=== PATIENT | female | born 1960 | race Two or more races ===

== ENCOUNTER 2024-09-18 14:23 | Outpatient (AMB) | payer MEDICAID, SELFPAY ==
[2024-09-18 15:18] VITALS: BP 165/85; PULSE 86; RESP 18; TEMP 35.9; O2SAT 96; BMI 33.6
--- NOTE | 2024-09-18 15:18 | ORTHONT_ITS ---
Vital signs 09/18/24 15:18 Height 1.4 m Height Method Stated Weight 65.998 kg Weight Measurement Method Standing Scale BMI 33.6 BP 165/85 H Blood Pressure Source Automatic Cuff Blood Pressure Location Right Upper Arm Position Sitting Respiration 18 Pulse 86 Pulse Source Monitor Temp 96.7 F L Temp Source Temporal Artery Scan Pulse Oximetry (%) 96 Oxygen Delivery Method Room Air Med/Allergies Allergies & Medications Allergies No Known Allergies Allergy (Verified 09/18/24 15:18) Medication Reconciliation glipizide 10 mg tablet 10 mg PO QDAY 08/02/24 [History Confirmed 09/18/24] insulin glargine 100 unit/mL (3 mL) subcutaneous pen (Lantus Solostar U-100 Insulin) 10 unit subcut QPM 08/02/24 [History Confirmed 09/18/24] meloxicam 7.5 mg tablet 7.5 mg PO QDAY #45 tabs 08/02/24 [Rx Confirmed 09/18/24] metformin 1,000 mg tablet,extended release 24hr (osmotic) 1,000 mg PO QDAY 08/02/24 [History Confirmed 09/18/24] pioglitazone 30 mg tablet 30 mg PO QDAY 08/02/24 [History Confirmed 09/18/24] Subjective Visit Visit for: follow up visit and knee Immunization / Flu Flu Vaccine in the Last 12 Months: Yes Flu Vaccine Exclusion Criteria: Already Received History of Present Illness Chief complaint: BILATERAL KNEE PAIN Date of injury / onset of symptoms: 2 YEARS AGO Patient is pleasant 64-year-old female with bilateral knee pain. The pains been bothering her for over 2 years. She has tried injections with minimal relief. She tried naproxen and Tylenol with a little relief. The pain started affect her quality life. She has difficulty sleeping. 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 Exam Exam Patient is in no acute distress and is cooperative with the examination today. Breathing is nonlabored. In no respiratory distress. Bilateral extremities were evaluated and demonstrates sensation intact to light touch. Palpable pedal pulses are present. No significant edema is present. Bilateral hips were examined. The patient has no pain with log roll of the hips. Internal rotation to 30 degrees and external rotation to 30 degrees is painless. Negative FADIR. The left knee was examined. The left knee is in [varus] alignment. Range of motion from [0-115] degrees. Knee is stable to varus and valgus as well as AP translation with <5mm. Patient has a [negative] McMurrays. There is [no] pain with patellofemoral compression and [no] crepitus noted. The knee is [tender] to palpation [medially]. The right knee was also examined. The right knee is in [varus] alignment. Range of motion from [0-120] degrees. Knee is stable to varus and valgus as well as AP translation with <5mm. Patient has a [negative] McMurrays. There is [no] pain with patellofemoral compression and [no] crepitus noted. The knee is [tender] to palpation [medially]. X-rays were reviewed from [facility]. This demonstrates moderate to severe joint space narrowing. She is weightbearing x-rays from [place] that we saw today. This demonstrates varus deformity and bilateral joint space narrowing with complete abrasion medial joint space. There is significant varus deformity Assessment and Plan Problem List (1) Degenerative arthritis of knee, bilateral: Status: Acute Plan: Patient is a pleasant 64-year-old female with bilateral knee pain and bilateral knee arthritis. We discussed nonoperative operative options. She is failed anti-inflammatories, injections, and bracing. We thus discussed total knee replacement is a reasonable option. The pain is worse on the right and we will start on this today. We do need to figure out what her hemoglobin A1c is. She reports it is well-controlled but we will check Plan The nature and purpose of the total knee replacement, alternative method(s) of treatment, the material risks involved, and the possibility of complications were fully explained to the patient. The patient does NOT have any of the following contraindications to TKA: - Active infection of the knee joint, OR - Active systemic bacteremia, OR - Active skin infection or open wound at surgical site, OR - Neuropathic arthritis, OR - Severe, rapidly progressive neurological disease, OR - Severe medical condition that makes risks of surgery outweigh the potential benefit The patient was told the most common risks and complications associated with a total knee replacement include, but are not limited to: blood clots in the leg, fatal pulmonary embolism, dislocation of the prosthesis, intraoperative and postoperative fractures of the femur or tibia, infection, failure of the p rosthesis or grafting materials, complications from anesthesia, reactions to blood transfusions, postoperative leg length inequality, instability of the knee replacement, nerve damage or injury, vascular injury, delayed wound healing, infection, other injury or even . In addition, there are risks associated with anesthesia given during this operation. Also, the patient was told that after undergoing a total knee replacement there may still be persistent pain or disability. The patient was informed that the success of this operation in part depends upon the mechanical devices which are going to be implanted and that these devices can fail or malfunction, and may need to be repaired or replaced and there are no guarantees as to the longevity of this device or its parts and that it or its parts could fail prematurely. The patient was also notified that during the course of surgery, there may be a need to use bone graft from donors, and that any bone graft used will be carefully screened for communicable diseases, including AIDS, hepatitis, Callum-Creutzfeldt, or other diseases, but despite the screening procedures, there is a small chance that they could contract one of these diseases. Finally, the patient was asked to follow completely and fully with all advice and recommended treatments, and that recovery and ultimate outcome are affected by their compliance with recommended treatment. We discussed the risks, benefits and treatment alternatives, and the patient is interested in proceeding with surgery. We will try to set this up as expeditiously as possible. Office Procedures GNS Level of Care Nursing/Assessment Patient Status: Established Patient Nursing Assessment/Reassesment: Medication Reconciliation, Update PMH in EMR and Vital Signs Coordination of Care: Complex Care and Chronic Disease 1-5, Education Complex Pt/Fam, Consent,records obtained, informed consent, 2-3 Insurance Autorizations needed, Lab and Imaging orders, Results/Orders obtained and Staff clarify orders Special Needs: Language special needs Established Patient Charge Established Patient Point Assignment: 130 Established Patient Point Charge: EP Level 4 (120-155) Past Medical History Past Medical History Have you ever been diagnosed with any of the following: Respiratory Problems Smoking: No Smoking Exposure: No Musculoskeletal Problems Arthritis: Yes Endocrine Problems Diabetes Mellitus Type 2: Yes
== END 2024-09-18 15:44 | disposition home or self-care (01) ==
LOC: HODSRG 14:23
PROVIDERS: PCP Family Medicine; Referring Provider Family Medicine; Supervising Provider Orthopaedic Surgery Adult Reconstructive Orthopaedic Surgery; Visit Provider Orthopaedic Surgery Adult Reconstructive Orthopaedic Surgery
DX: M17.0 Bilateral primary osteoarthritis of knee (principal); M25.562 Pain in left knee; M25.561 Pain in right knee; E11.9 Type 2 diabetes mellitus without complications
CPT/HCPCS: 99214; G0463

== ENCOUNTER 2025-08-22 08:25 | Outpatient (AMB) | payer MEDICARE, SELFPAY ==
[2025-08-22 08:43] VITALS: BP 131/64; PULSE 80; RESP 18; TEMP 36.2; O2SAT 98; BMI 22.9
--- NOTE | 2025-08-22 08:43 | ORTHONT_ITS ---
Vital signs 08/22/25 08:43 Height 1.42 m Height Method Stated Weight 46.38 kg Weight Measurement Method Standing Scale BMI 22.9 BP 131/64 H Blood Pressure Source Automatic Cuff Blood Pressure Location Left Upper Arm Position Sitting Respiration 18 Pulse 80 Pulse Source Monitor Temp 97.2 F Temp Source Temporal Artery Scan Pulse Oximetry (%) 98 Oxygen Delivery Method Room Air Med/Allergies Allergies & Medications Allergies No Known Allergies Allergy (Verified 08/22/25 08:44) Medication Reconciliation glipizide 10 mg tablet 10 mg PO QDAY 08/02/24 [History Confirmed 08/22/25] insulin glargine 100 unit/mL (3 mL) subcutaneous pen (Lantus Solostar U-100 Insulin) 10 unit subcut QPM 08/02/24 [History Confirmed 08/22/25] meloxicam 7.5 mg tablet 7.5 mg PO QDAY #45 tabs 08/02/24 [Rx Confirmed 08/22/25] metformin 1,000 mg tablet,extended release 24hr (osmotic) 1,000 mg PO QDAY 08/02/24 [History Confirmed 08/22/25] pioglitazone 30 mg tablet 30 mg PO QDAY 08/02/24 [History Confirmed 08/22/25] Exam Exam Patient is in no acute distress and is cooperative with the examination today. Breathing is nonlabored. In no respiratory distress. Bilateral extremities were evaluated and demonstrates sensation intact to light touch. Palpable pedal pulses are present. No significant edema is present. Bilateral hips were examined. The patient has no pain with log roll of the hips. Internal rotation to 30 degrees and external rotation to 30 degrees is painless. Negative FADIR. Left and right knees demonstrate extreme valgus deformity of over 30 degrees. He is tender to palpation laterally on both knees. Knees are stable tovarus valgus stress only translation.. X-rays were reviewed from [facility]. This demonstrates moderate to severe joint space narrowing. She is weightbearing x-rays from [place] that we saw today. This demonstrates varus deformity and bilateral joint space narrowing with complete abrasion m edial joint space. There is significant valgus deformity of both knees Assessment and Plan Problem List (1) Degenerative arthritis of knee, bilateral: Status: Acute Plan: Patient is a pleasant 65-year-old female with bilateral knee pain and bilateral knee arthritis. We discussed nonoperative operative options. She is failed anti-inflammatories, injections, and bracing. We thus discussed total knee replacement is a reasonable option. The pain is worse on the right and we will start on this today. Her hemoglobin A1c is now controlled at 7.8 Plan The nature and purpose of the total knee replacement, alternative method(s) of treatment, the material risks involved, and the possibility of complications were fully explained to the patient. The patient does NOT have any of the following contraindications to TKA: - Active infection of the knee joint, OR - Active systemic bacteremia, OR - Active skin infection or open wound at surgical site, OR - Neuropathic arthritis, OR - Severe, rapidly progressive neurological disease, OR - Severe medical condition that makes risks of surgery outweigh the potential benefit The patient was told the most common risks and complications associated with a total knee replacement include, but are not limited to: blood clots in the leg, fatal pulmonary embolism, dislocation of the prosthesis, intraoperative and postoperative fractures of the femur or tibia, infection, failure of the prosthesis or grafting materials, complications from anesthesia, reactions to blood transfusions, postoperative leg length inequality, instability of the knee replacement, nerve damage or injury, vascular injury, delayed wound healing, infection, other injury or even . In addition, there are risks associated with anesthesia given during this operation. Also, the patient was told that after undergoing a total knee replacement there may still be persistent pain or disability. The patient was informed that the success of this operation in part depends upon the mechanical devices which are going to be implanted and that these devices can fail or malfunction, and may need to be repaired or replaced and there are no guarantees as to the longevity of this device or its parts and that it or its parts could fail prematurely. The patient was also notified that during the course of surgery, there may be a need to use bone graft from donors, and that any bone graft used will be carefully screened for communicable diseases, including AIDS, hepatitis, Callum-Creutzfeldt, or other diseases, but despite the screening procedures, there is a small chance that they could contract one of these diseases. Finally, the patient was asked to follow completely and fully with all advice and recommended treatments, and that recovery and ultimate outcome are affected by their compliance with recommended treatment. We discussed the risks, benefits and treatment alternatives, and the patient is interested in proceeding with surgery. We will try to set this up as expeditiously as possible. Advanced Care Planning Discussion Advance care planning discussed with:: patient Office Procedures GNS Level of Care Nursing/Assessment Patient Status: Established Patient Nursing Assessment/Reassesment: Medication Reconciliation, Update PMH in EMR and Vital Signs Coordination of Care: Complex Care and Chronic Disease 1-5, Education Complex Pt/Fam, Consent,records obtained, informed consent, Results/Orders obtained and Staff clarify orders Special Needs: Language special needs Established Patient Charge Established Patient Point Assignment: 95 Established Patient Point Charge: EP Level 3 (80-115) MA Intake Visit Data Collection New Patient or Established: Established Patient (seen at [facility] within 3 years) Reason for Visit:: REQ R TKA SX Seen by Clinical Staff ONLY (RN/MA): No Airport Location Manager Required: Yes PCP or OBGYN visit in last 3 months: Yes Hx Now: No Do You Feel Safe at Home: Yes Authorities Contacted: N/A Questionairres Past Medical History Past Medical History Have you ever been diagnosed with any of the following: Respiratory Problems Smoking: No Smoking Exposure: No Musculoskeletal Problems Arthritis: Yes Endocrine Problems Diabetes Mellitus Type 2: Yes Subjective Visit Visit for: follow up visit and knee (RIGHT) Immunization / Flu Flu Vaccine in the Last 12 Months: No Flu Vaccine Exclusion Criteria: No Exclusion Criteria History of Present Illness Chief complaint: REQ KNEE SX HISTORY OF PRESENT ILLNESS IYoung, have obtained verbal consent from the patient, to be recorded during this encounter which may include, but not limited to, medical history, examination, treatment plans, and relevant health information.? Patient was i nformed that recording will be read and reviewed by myself before inclusion in the medical chart. The patient is a 65-year-old female who presents with bilateral knee pain. She reports that the pain has been bothering her for over 2 years and has significantly worsened, with the right knee being more affected than the left. She has tried injections with minimal relief as well as naproxen and Tylenol. The pain is affecting her quality of life and happiness, and she has difficulty sleeping. X-rays were taken on 04/04/2025, and she has brought the CD of the images. Pain Pain level (0-10): 8 Pain duration: ALL DAY Pain location: anterior Pain quality: sharp, dull and aching Pain timing: night, increases with activity and stairs Associated signs & symptoms: numbness Ambulatory data Ambulatory device: walker Treatments Improvement with previous injections: No Improvement with PT: No Improvement with NSAIDS: no Review of Systems Review of Systems: All systems negative unless otherwise noted in HPI.
--- NOTE | 2025-08-22 09:07 | XR_ITS ---
EXAMINATION: Bilateral knees 2 views Right lateral knee left lateral knee 2 views Bilateral axial knee single view TECHNIQUE: Bilateral AP knees standing single view Bilateral Pain-Ease standing single view flexion Standing right lateral knee left lateral knee 2 views Bilateral axillary single view total 5 views Date and time: August 22, 2025, 0916 hours INDICATIONS: Bilateral knee pain 3 years. FINDINGS: Severe narrowing lateral joint spaces bilaterally, [id number] on the left side Significant osteoarthritis bilateral patellofemoral joints Small bilateral knee effusions. Soft tissue vascular calcification No fractures IMPRESSION: Severe narrowing lateral joint spaces bilaterally Significant osteoarthritis bilateral patellofemoral joints
== END 2025-08-22 09:35 | disposition home or self-care (01) ==
PROVIDERS: PCP Family Medicine; Referring Provider Family Medicine; Supervising Provider Orthopaedic Surgery Adult Reconstructive Orthopaedic Surgery; Visit Provider Orthopaedic Surgery Adult Reconstructive Orthopaedic Surgery
DX: M25.562 Pain in left knee (principal); M25.561 Pain in right knee; M17.0 Bilateral primary osteoarthritis of knee; E11.9 Type 2 diabetes mellitus without complications; Z79.4 Long term (current) use of insulin; Z79.84 Long term (current) use of oral hypoglycemic drugs
CPT/HCPCS: 73564; 99213; G0463

== ENCOUNTER → 2025-09-10 | Outpatient (CLI) | payer MEDICARE, SELFPAY ==
--- NOTE | 2025-09-10 09:54 | XR_ITS ---
Examination: CT right lower extremity, without contrast. 2-D sagittal reconstructions. 2-D coronal reconstructions. 3-D reconstructions. Date and time of exam: September 10, 2025, 1012 hours INDICATIONS: Diagnosis primary right knee unilateral osteoarthritis, pain several years CTDI: vol (mGy): 8.4 DLP: (mGycm): 606 Technique: Multiple 1.25 mm axial sections of the right lower extremity without intravenous contrast have been obtained. 2-D sagittal and coronal reconstructions have been obtained. 3-D reconstructions have been obtained. Low dose protocols were performed. One or more of the following dose reduction techniques were used; automated exposure control, adjustment of the mA and/or KV according to patient size, use of iterative reconstruction technique. Findings: Moderate osteopenia Moderate narrowing hip joint No hip fracture or dislocation No avascular necrosis Moderate to advanced tricompartment osteoarthritis right knee Old depression of the lateral tibial plateau No patellar dislocation No acute fracture IMPRESSION: Moderate to advanced tricompartment osteoarthritis right knee
== END | disposition home or self-care (01) ==
PROVIDERS: PCP Family Medicine; Referring Provider Orthopaedic Surgery Adult Reconstructive Orthopaedic Surgery; Visit Provider Orthopaedic Surgery Adult Reconstructive Orthopaedic Surgery
DX: M17.11 Unilateral primary osteoarthritis, right knee (principal)
CPT/HCPCS: 73700

== ENCOUNTER 2025-09-11 07:27 | Day surgery (SDC) | payer MEDICARE, SELFPAY ==
[2025-09-10 07:31] VITALS: BMI 22.4
[2025-09-10 08:55] LABS: Basophils # (Auto) 0.0 Thou/mm3 (0.0-0.2); Basophils % (Auto) 0 % (0-2.5); Eosinophils # (Auto) 0.0 Thou/mm3 (0.0-0.5); Eosinophils % (Auto) 0 % (0-10); Hematocrit 35.6 % (36.0-46.0); Hemoglobin 11.8 g/dL (12.0-16.0); Immature Granulocytes Auto 0.04 Thou/mm3 (0.00-0.00); Lymphocytes # (Auto) 1.2 Thou/mm3 (1.0-4.8); Lymphocytes % (Auto) 9 % (10-50); Mean Corpuscular HGB Conc 33.1 g/dl (31.0-37.0); Mean Corpuscular Hemoglobin 30.1 pg (25.0-35.0); Mean Corpuscular Volume 91 fL (80-100); Monocytes # (Auto) 0.8 Thou/mm3 (0.0-0.8); Monocytes % (Auto) 6 % (0-12); Neutrophils # (Auto) 10.8 Thou/mm3 (1.8-7.7); Neutrophils % (Auto) 84 % (37-80); Nucleated Red Blood Cell # 0.00 Thou/mm3 (0.00-0.00); Nucleated Red Blood Cell % 0 /100 WBC (0); Platelet Count 331 Thou/mm3 (140-440); RDW Standard Deviation 43.8 fL (36.4-46.3); Red Blood Count 3.92 Miln/mm3 (4.00-5.20); White Blood Count 12.8 Thou/mm3 (3.6-11.0)
[2025-09-10 09:04] LABS: INR 1.0 (0.9-1.3); Partial Thromboplastin Time 23.0 Seconds (22.0-36.0); Prothrombin Time 10.5 Seconds (9.0-12.2)
[2025-09-10 09:16] LABS: Alanine Aminotransferase 9 U/L (10-49); Albumin, Serum 4.7 gm/dL (3.4-4.8); Albumin/Globulin Ratio 2.1 (1.2-2.2); Alkaline Phosphatase 108 U/L (46-116); Anion Gap 12 (7-16); Aspartate Amino Transferase 21 U/L (0-34); BUN/Creatinine Ratio 23 Ratio (12-20); Bilirubin,Total 0.3 mg/dL (0.3-1.2); Blood Urea Nitrogen 21 mg/dL (9-23); Calcium 9.8 mg/dL (8.3-10.6); Calcium (Corrected) 9.8 mg/dL (8.5-10.1); Carbon Dioxide 24.2 mMol/L (20.0-31.0); Chloride 106 mMol/L (98-107); Creatinine (Component) 0.9 mg/dL (0.6-1.3); Estimated Creatinine Clearance 41.3 mL/min (>60); Globulin 2.2 gm/dL (2.3-3.5); Glucose 268 mg/dL (74-106); Osmolality,Calculated 295 (275-295); Potassium 4.0 mMol/L (3.4-5.1); Sodium 142 mMol/L (136-145); Total Protein 6.9 gm/dL (5.7-8.2); eGFR > 60 See Note
--- NOTE | 2025-09-10 14:41 | SUR.PREOP ---
WBC 12.8, Dr Currie notified and ok to proceed. Cardiac records reviewed with Dr Christine.
[2025-09-11 08:00] VITALS: BP 106/89; PULSE 89; RESP 20; TEMP 37.1; O2SAT 97; BMI 22.4
--- NOTE | 2025-09-11 08:38 | CHAP ---
Prayed with patient before her procedure.
[2025-09-11 08:53] LABS: Glucose Estimated Average 189 mg/dL (80-131); Hemoglobin A1C 8.2 % Hgb (4.8-6.0)
[2025-09-11] MEDS: INSULIN HUM REGULAR 1 UNIT/0.01 ML (PER UNIT) 6 UNIT SC (09:08)
[2025-09-11 09:13] LABS: Glucose 534 mg/dL (74-106)
[2025-09-11 09:26] VITALS: BP 106/89; PULSE 89; RESP 15; TEMP 37.1; O2SAT 97
--- NOTE | 2025-09-11 09:41 | SUR.PREOP ---
0801-DR BARRERA MADE AWARE OF PATIENTS BLOOD SUGAR OF 472 1st AND 501 2nd, ORDERS FOR SLIDING SCALE. ORDERS PUT IN FOR GLUCOSE AND HEMOGLOBIN A1C AND LAB CALLED FOR BLOOD DRAW.
--- NOTE | 2025-09-11 09:46 | SUR.PREOP ---
0900-LAB CALLED WITH GLUCOSE RESULT OF 534, DR BARRERA MADE AWARE.
--- NOTE | 2025-09-11 09:48 | SUR.PREOP ---
0915-ORDER RECEIVED FROM DR BARRERA TO CANCEL TYLENOL 650MG, LYRICA 75MG, AND MELOXICAM 7.5MG PO.
--- NOTE | 2025-09-11 09:50 | SUR.PREOP ---
0920-FSBS [address] BARRERA MADE AWARE NO NEW ORDERS RECEIVED.
--- NOTE | 2025-09-11 09:51 | SUR.PREOP ---
09-[facility]APID RESPONSE TEAM CALLED AT 09, AND IN ROOM 203A AT 0930, THEY ASSESSED PATIENT. PATIENT AT NO TIME WAS IN DISTRESS OR C/O OF ANY DISCOMFORT. PATIENT AGREED TO BE SEEN IN ER AND TAKEN DOWN TO EMERGENCY ROOM VIA WHEEL CHAIR
--- NOTE | 2025-09-11 17:03 | PC.CM ---
Addendum entered by Maria Esther Corado RN 09/11/25 17:56: 1730 Jessica called back from [facility] and she states they took the information to administration and they are going to have to decline due to capacity and their team does not have room to bring in this patient. Patient declined. I spoke to Dr. Robles, Dr. Brown, and Dr. Araujo and they are going to reach out to Dr. Apple to see if he can offier any help or assistance. 1715 I received a call from Dr. Araujo and he wanted an update I let him know [facility] states their team is very busy but they are working on getting patient over. Dr. Hussein was going to call Dr. Lyles and see if he could help in getting patient transferred. 1710 I spoke to Jessica the transfer nurse and she states Dr. Lyles did call and speak Dr. Anglin. Jessica states their critical team is very busy so they are talking to administration to assist is getting patient accepted. Jessica knows that patient is life or . Original Note: 1700 I started transfer packet and I made a CD. 1645 I receive a call from [facility] ED charge nurse. She states Dr. Flakito Martinez will be the one to speak DrLevy to Dr. I then received a call from from Dr. Araujo stating he spoke to Dr. Lyles and he was going to reach out to Dr. Anglin at [facility]. I faxed over information to [facility] and I spoke to Jessica and faxed over information. 1627 I received a call from Dr. Araujo stating patient needs a stat trasnfer for STEMI patient needs cardio surgery. Patient is a stat transfer per Dr. Araujo
== END 2025-09-11 10:03 | disposition home or self-care (01) ==
LOC: S2EX 07:27
PROVIDERS: Anesthesiology; PCP Family Medicine; Referring Provider Orthopaedic Surgery Adult Reconstructive Orthopaedic Surgery; Visit Provider Orthopaedic Surgery Adult Reconstructive Orthopaedic Surgery
DX: M17.0 Bilateral primary osteoarthritis of knee (principal); Z53.8 Procedure and treatment not carried out for other reasons
CPT/HCPCS: 36415; 80053; 82947; 83036; 85025; 85610; 85730; A4649; J1815

== ENCOUNTER 2025-09-11 09:49 | Inpatient (IN) | payer MEDICARE, MEDICAID, SELFPAY ==
[2025-09-11] VITALS (27 sets, daily range): BP systolic 85–119; BP diastolic 48–93; PULSE 56–115; RESP 15–38; TEMP 36.6–36.9; O2SAT 91–100; BMI 19.9; BMI 19.8
[2025-09-11] MEDS: RINGERS LACTATED 1000 ML 1,000 ML 999 ML IV ×3 (10:08→15:17)
--- NOTE | 2025-09-11 10:08 | EDNOTE_ITS ---
<Statement entered by Patti Fisher MD - 09/11/25 17:46> I, Patti Fisher MD, have reviewed the history, exam, and assessment of the patient. I have evaluated the patient independently and agree with the plan of care documented by Dr. Costa. All diagnostic studies were reviewed and discussed. I confirm the diagnosis as documented by the Resident. I was present during the Medical Decision Making for this patient. The patient's plan of care was created between myself and the Resident and consistent with our discussion of the patient's case. ED General RME/HPI General Chief complaint: General Adult/Misc Complain Stated complaint: BLOOD SUGAR Time Seen by Provider: 09/11/25 09:59 Arrival date/time: 09/11/25 09:49 RME / HPI RME / HPI narrative: Addendum, Primary team order EKG, RT brought EKG to ER team, concern for for ST elevation on lead V1V3, NO CHEST pain, pending troponin--->consulted on- call cardiology-->Asprin, Plavix, and heparin drip Patient is a 65-year-old female with a past medical history of diabetes mellitus type 2 insulin-dependent and history of DVTs on Eliquis currently on hold since for planned right knee arthroplasty was scheduled for 09/11/2025. Patient presented to the emergency room after a medical response unit was called at preop for a blood glucose of 510. Dr. Currie currently holding arthroplasty until improved blood sugar control. Patient was given 6 units subcu of lispro in preop. Patient denied any chest pain cough or fevers at home. Denied abdominal pain. Denied urinary symptoms. Per patient history lispro 3 times daily with meals and glargine 10 units at bedtime. Janumet and Jardiance. Denied history of hypertension or cardiovascular disease. Related Data Home Medications ?Medication ?Instructions ?Recorded ?Confirmed apixaban 5 mg tablet (Eliquis) 5 mg PO BID 09/10/25 empagliflozin 25 mg tablet 25 mg PO QAM 09/10/2509/10 (Jardiance) hydrocodone 5 mg-acetaminophen 325 1 tab PO Q8H PRN pa in 09/10/25 09/10/25 mg tablet hydroxyzine HCl 25 mg tablet 25 mg PO TID PRN anxiety 09/10/25 09/10/25 insulin glargine U-300 conc 300 20 unit subcut HS 08/2409/10/25 unit/mL (3 mL) subcutaneous pen (Toujeo Max U-300 SoloStar) insulin lispro 100 unit/mL 10 unit subcut TID 09/10/25 09/10/25 subcutaneous pen (Humalog KwikPen (U-100) Insulin) sitagliptin phosphate 50 1 tab PO BID 09/10/25 mg-metformin 500 mg tablet (Janumet) Allergies Allergy/AdvReac Type Severity Reaction Status Date / Time No Known Allergies Allergy Verified 09/11/25 10:02 Review of Systems Review of Systems Narrative Review of Systems: General appearance: NO weight change, NO fatigue, NO weakness, NO fever, NO chills, NO night sweats, No cough Skin: NO rash, NO itching, NO sores, NO moles HEENT: NO Trauma, NO nausea, NO vomiting, NO visual changes, NO blurry vision, NO double vision, NO tinnitus, NO vertigo, NO ear discharge, NO rhinorrhea, NO stuffiness, NO sneezing, NO allergy, NO epistaxis. NO Hoarseness, NO sore throat, NO swollen neck. Cardiac: NO Palpitations, NO dyspnea on exertion, NO orthopnea, NO paroxysmal nocturnal dyspnea, NO edema Respiratory: NO Shortness of Breath, NO Wheezing, NO Cough, NO Sputum, NO hemoptysis GI:NO appetite, NO nausea, NO vomiting, NO dysphagia, NO changes in bowel frequency, NO stool color, NO diarrhea, NO constipation, NO hemetemesis, NO hemorrhoids, NO melena, NO hematechezia, NO abdominal pain, NO jaundice Renal: NO frequency, NO hesitancy, NO urgency, NO hematuria, NO nocturia, NO incontinence MSK: NO muscle weakness, NO gout, NO arthritis, NO muscle stiffness Neuro: NO headaches, NO tremors, NO weakness, NO paralysis, NO seizures, NO loss of consciousness, NO numbness. Hem: NO anemia, NO easy bruising/bleeding, NO petechiae, NO purpura Endo: NO heat/cold intolerance, NO excessive sweating, NO polyuria, NO polydipsia, NO polyphagia, NO thyroid problems, NO diabetes Pysch: NO mood, NO anxiety, NO depression ED Exam Narrative Physical exam: General Appearance: Alert & Oriented X3, well-nourished female who is lying in bed in no acute distress. HEENT: Skull symmetrical and atraumatic. Conjunctivae pale pink and moist. Pupils equal, round, reactive to light and accommodation (PERRL). External ear without lesion or discharge. Straight, nares patient, mucosa pink, no discharge. Cardio: Normal Rate and Rhythm with S1 and S2 heart sounds. No murmurs or extra heart sounds auscultated. No bruits on carotid auscultation. No peripheral edema or cyanosis. Lungs: Symmetric with good expansion. Chest and back non-tender. Breath sounds vesicular without crackles, wheezing or rhonchi Abdomen: Non-tender, Non-distended, Normal Reactive Bowel Sounds Neuro: Alert, cooperative, oriented to person, place, and time. Speech clear. CN grossly intact. Upper motor strength 5/5 and Lower motor strength 5/5. Sensation intact. Course Quality Measures none Orders Category Date Time Status Bedside Blood Glucose NOW Care 09/11/25 12:39 Active Blood glucose [Bedside Blood Glucose] NOW Care 09/11/25 10:08 Active IV [Insert IV] NOW Care 09/11/25 10:08 Active In and Out Catheter X1 Care 09/11/25 13:08 Active XR chest 1V portable Stat Exams 09/11/25 13:07 Completed A1C [Glycohemoglobin w (eAG)] Stat Lab 09/11/25 10:20 Completed Beta Hydroxybutyrate Stat Lab 09/11/25 11:35 Completed Blood Culture (Lab) Stat Lab 09/11/25 13:36 Received CBC Stat Lab 09/11/25 11:35 Completed Lactic Acid [Lactate (Lactic Acid)] Stat Lab 09/11/25 11:35 Completed Lactic Acid [Lactate (Lactic Acid)] Stat Lab 09/11/25 16:00 Ordered Renal Function Panel Stat Lab 09/11/25 10:20 Completed Renal Function Panel Stat Lab 09/11/25 13:30 Completed Urinalysis, C/S if Indicated Stat Lab 09/11/25 13:20 Completed VBG [Venous Blood Gas] Stat Lab 09/11/25 11:35 Completed Insulin Regular Med 09/11/25 11:02 Discontinued 10 unit IV X1 ONE Insulin Regular Med 09/11/25 10:01 Discontinued 5 unit IV X1 ONE Ringers Lactated 1000 ml [Lactated Ringers] 1,000 ml Med 09/11/25 10:06 Discontinued IV 999 mls/hr Ringers Lactated 1000 ml [Lactated Ringers] 1,000 ml Med 09/11/25 12:42 Discontinued IV 999 mls/hr Ringers Lactated 1000 ml [Lactated Ringers] 1,000 ml Med 09/11/25 13:53 Discontinued IV 999 mls/hr Vital Signs Vital signs: Vital Signs Temperature 97.8 F 09/11/25 09:57 Pulse Rate 98 09/11/25 09:57 Respiratory Rate 16 09/11/25 09:57 Blood Pressure 105/58 L 09/11/25 09:57 Pulse Oximetry (%) 96 09/11/25 09:57 Discharge Plan Plan Patient Disposition: Admit Acute Care w/in Hospital Patient condition on transfer: Stable Problem List Clinical Impression: Acute hyperglycemia, Hyperosmolar hyperglycemic state (HHS) MDM Medical Records reviewed [facility] Meds/Rx considered, not ordered None Labs/Rad/Tests considered, not ordered None Chronic Illness/Social Conditions which may negatively complicate care or outcome(s)-explain: other (Diabetes Mellitus Type 2 insulin dependent ) Explain: Patient is a 65-year-old female with past medical history of diabetes mellitus type 2 and history of DVT on Eliquis currently on hold who likely has DKA with compensation as serum bicarb is less than 14 beta hydroxybutyrate is 2.8 as hyperosmolar hyperglycemic syndrome would have bicarb greater than 20 and usually serum glucose greater than 600. Metabolic acidosis secondary to ketoacidosis and lactic acidosis unknown source of lactic acidosis which be could be secondary to medication such as metformin versus infectious cause pending UA and chest x-ray. - The patient's plan was discussed with attending Dr. Phillip Costa MD PGY2 Internal Medicine Imaging Imaging interpretation: none Imaging Interpretation(s): Pending Chest xray Medication Administration(s) none Medication Administration History Acetaminophen (Acetaminophen 325 Mg Tablet) 650 mg PO Q6H PRN PRN Reason: fever >100 or pain 1-12/31 Stop: 10/11/25 14:14 Hydrocodone Bitart/Acetaminophen (Hydrocodone/Apap 5/325 Tablet) 1 tab PO Q4HR PRN PRN Reason: PAIN SCALE 4-10(Mod-Sev Stop: 09/16/25 14:19 Dextrose (Dextrose 50%-Water Inj 50 Ml Syringe) 25 ml IV Q15MIN PRN PRN Reason: BG 50-70 responsive npo pt Stop: 10/11/25 14:38 Dextrose (Dextrose 50%-Water Inj 50 Ml Syringe) 50 ml IV Q15MIN PRN PRN Reason: BG <50 OR BG <70 & pt unresponsive Stop: 10/11/25 14:38 Glucagon (Glucagon Inj 1 Mg Vial) 1 mg IM Q15MIN PRN PRN Reason: BG <70, and no IV access Heparin Sodium (Porcine) (Heparin Sod Inj 5000 Unit/Ml Vial) 2,800 unit 60 unit/kg (2800 unit) IV X1 ONE; Protocol Stop: 09/11/25 15:31 Lactated Ringer's (Lactated Ringers) 1,000 mls @ 75 mls/hr IV .[id number] [facility] Stop: 10/11/25 14:38 Insulin Degludec (Insulin Degludec 5 Unit/0.05 Ml (Per 5 Units)) 10 unit SC QDAY [facility] Stop: 10/11/25 14:44 Last Admin: 09/11/25 15:18 Dose: 10 unit Documented By: AA Co-signed By: MG Insulin Human Lispro (Insulin Lispro (Admelog) 1 Unit/0.01 Ml Unit) 2 unit SC Q4H [facility] Stop: 10/11/25 14:44 Last Admin: 09/11/25 15:20 Dose: 2 unit Documented By: AA Co-signed By: MG Insulin Human Lispro (Insulin Lispro (Admelog) 1 Unit/0.01 Ml Unit) 0 unit SC Q4HR [facility]; Protocol Stop: 10/11/25 14:44 Last Admin: 09/11/25 15:20 Dose: 4 unit Documented By: AA Co-signed By: MG Ondansetron HCl (Ondansetron Inj 2 Mg/Ml Inj 2 Ml) 4 mg IVP Q6H PRN; Protocol PRN Reason: NAUSEA OR VOMITING Stop: 10/11/25 14:19 Discontinued Medications Hydrocodone Bitart/Acetaminophen (Hydrocodone/Apap 5/325 Tablet) 1 tab PO Q4HR PRN PRN Reason: PAIN SCALE 4-6 (Moderate Stop: 09/16/25 14:19 Hydrocodone Bitart/Acetaminophen (Hydrocodone/Apap 10/325 Tab) 1 tab PO Q4HR PRN PRN Reason: PAIN SCALE 7-10 (Severe Stop: 09/16/25 14:19 Aspirin (Aspirin 325 Mg Tablet) 325 mg PO X1 ONE Stop: 09/11/25 15:31 Clopidogrel Bisulfate (Clopidogrel Bisulfate 75 Mg Tablet) 75 mg PO X1 ONE Stop: 09/11/25 15:31 Lactated Ringer's (Lactated Ringers) 1,000 mls @ 999 mls/hr IV .Q1H1M ONE Stop: 09/11/25 11:06 Last Infusion: 09/11/25 11:14 Dose: Infused Documented By: Admin: 09/11/25 10:08 Dose: 999 mls/hr Documented By: MINDY Lactated Ringer's (Lactated Ringers) 1,000 mls @ 999 mls/hr IV .Q1H1M ONE Stop: 09/11/25 13:42 Last Infusion: 09/11/25 14:47 Dose: Infused Documented By: Admin: 09/11/25 13:27 Dose: 999 mls/hr Documented By: Lactated Ringer's (Lactated Ringers) 1,000 mls @ 999 mls/hr IV .Q1H1M ONE Stop: 09/11/25 14:53 Last Admin: 09/11/25 15:17 Dose: 999 mls/hr Documented By: MELANI Insulin Human Regular (Insulin Hum Regular 1 Unit/0.01 Ml (Per Unit)) 5 unit IV X1 ONE Stop: 09/11/25 10:02 Last Admin: 09/11/25 10:09 Dose: Not Given Documented By: MINDY Non-Admin Reason: Discontinued Insulin Human Regular (Insulin Hum Regular 1 Unit/0.01 Ml (Per Unit)) 10 unit IV X1 ONE Stop: 09/11/25 11:03 Last Admin: 09/11/25 11:22 Dose: 10 unit Documented By: MINDY Co-signed By: MELANI Potassium Chloride (Potassium Chloride 10% 20 Meq/15 Ml Udc) 20 meq PO X1 ONE Stop: 09/11/25 14:49 same as above Diagnosis Differential Diagnosis ED Complaint MDM: Hyperglycemia vs DKA vs HHS Diagnoses ruled out and/or further discussions: Patient is a 65-year-old female with past medical history of diabetes mellitus type 2 and history of DVT on Eliquis currently on hold who likely has DKA with compensation as serum bicarb is less than 14 beta hydroxybutyrate is 2.8 as hyperosmolar hyperglycemic syndrome would have bicarb greater than 20 and usually serum glucose greater than 600. Metabolic acidosis secondary to ketoacidosis and lactic acidosis unknown source of lactic acidosis which be could be secondary to medication such as metformin versus infectious cause pending UA and chest x-ray. - The patient's plan was discussed with attending Dr. Phillip Costa MD PGY2 Internal Medicine
[2025-09-11 10:38] LABS: Glucose Estimated Average 192 mg/dL (80-131); Hemoglobin A1C 8.3 % Hgb (4.8-6.0)
[2025-09-11 10:53] LABS: Albumin, Serum 4.2 gm/dL (3.4-4.8); Anion Gap 19 (7-16); BUN/Creatinine Ratio 18 Ratio (12-20); Blood Urea Nitrogen 23 mg/dL (9-23); Calcium 9.4 mg/dL (8.3-10.6); Calcium (Corrected) 9.4 mg/dL (8.5-10.1); Chloride 104 mMol/L (98-107); Creatinine (Component) 1.3 mg/dL (0.6-1.3); Osmolality,Calculated 301 (275-295); Phosphorous 3.8 mg/dL (2.4-5.1); Potassium 4.2 mMol/L (3.4-5.1); Sodium 138 mMol/L (136-145); eGFR 46 See Note
[2025-09-11 10:55] LABS: Carbon Dioxide 14.7 mMol/L (20.0-31.0); Glucose 492 mg/dL (74-106)
[2025-09-11] MEDS: INSULIN HUM REGULAR 1 UNIT/0.01 ML (PER UNIT) 10 UNIT IV (11:22)
--- NOTE | 2025-09-11 11:28 | PC.NURSE ---
Small 6oz water given to pt approved by Provider Rc
[2025-09-11 11:41] LABS: Base Excess, Venous -5 (-3-3); O2 Saturation, Venous 41 % (96-97); PCO2, Venous 31 mmHg (36-56); PO2, Venous 25 mmHg (15-58); pH, Venous 7.39 (7.33-7.66)
[2025-09-11 11:48] LABS: Beta Hydroxybutyrate 2.8 mmol/L (<0.6); Lactate (Lactic Acid) 4.4 mMol/L (0.4-2.0)
[2025-09-11 11:55] LABS: Basophils # (Auto) 0.0 Thou/mm3 (0.0-0.2); Basophils % (Auto) 0 % (0-2.5); Eosinophils # (Auto) 0.0 Thou/mm3 (0.0-0.5); Eosinophils % (Auto) 0 % (0-10); Hematocrit 32.8 % (36.0-46.0); Hemoglobin 10.8 g/dL (12.0-16.0); Immature Granulocytes Auto 0.05 Thou/mm3 (0.00-0.00); Lymphocytes # (Auto) 1.1 Thou/mm3 (1.0-4.8); Lymphocytes % (Auto) 10 % (10-50); Mean Corpuscular HGB Conc 32.9 g/dl (31.0-37.0); Mean Corpuscular Hemoglobin 29.6 pg (25.0-35.0); Mean Corpuscular Volume 90 fL (80-100); Monocytes # (Auto) 0.1 Thou/mm3 (0.0-0.8); Monocytes % (Auto) 1 % (0-12); Neutrophils # (Auto) 10.4 Thou/mm3 (1.8-7.7); Neutrophils % (Auto) 89 % (37-80); Nucleated Red Blood Cell # 0.00 Thou/mm3 (0.00-0.00); Nucleated Red Blood Cell % 0 /100 WBC (0); Platelet Count 270 Thou/mm3 (140-440); RDW Standard Deviation 44.1 fL (36.4-46.3); Red Blood Count 3.65 Miln/mm3 (4.00-5.20); White Blood Count 11.7 Thou/mm3 (3.6-11.0)
--- NOTE | 2025-09-11 13:07 | XR_ITS ---
EXAMINATION: AP chest single view TECHNIQUE: AP portable upright chest single view Date and time: September 11, 2025, 1430 hours INDICATIONS: High blood sugar today. FINDINGS: No significant cardiac enlargement Moderate vascular congestion Parenchymal disease throughout the lungs most consistent with pneumonia pulmonary edema not excluded IMPRESSION: Extensive interstitial disease throughout the lungs, differential would include pneumonia and/or pulmonary edema, clinical correlation advised
[2025-09-11 13:39] LABS: Collection Type, Urine Clean Catch
[2025-09-11 13:54] LABS: Bilirubin,Urine Negative (Negative); Blood,Urine Negative (Negative); Clarity,Urine Clear (Clear/Hazy); Color,Urine Lt-Yellow (Lt Yel-Yel); Culture Indicated,Urine Not Indicated; Glucose, Urine 4+ (Negative); Hyaline Casts,Urine < 1 /hpf (0-1); Ketones,Urine 4+ (Negative); Leukocyte Esterase,Urine Positive (Negative); Nitrite,Urine Negative (Negative); PH,Urine 6.0 (5.0-7.0); Protein,Urine Trace (Neg - Trace); RBC,Urine 1 /hpf (0-3); Specific Gravity,Urine 1.029 (1.001-1.035); Squamous Epithelial Cell,Urine 2 /hpf (0-5); Urobilinogen,Urine Negative mg/dL (0.0-1.0); WBC,Urine 6 /hpf (0-5)
--- NOTE | 2025-09-11 14:10 | PD.RESHP ---
Documentation for date of: 09/11/25 HPI History of Present Illness History of present illness: HPI: Patient is a 65-year-old female with PMHx of diabetes mellitus type 2 insulin-dependent and LLE DVT in December 2024 on Eliquis currently on hold since for planned right knee arthroplasty was scheduled for 09/11/2025. Patient presented to the emergency room after a medical response unit was called at preop for a blood glucose of 510. Dr. Currie currently holding arthroplasty until improved blood sugar control. Patient denied any chest pain cough or fevers at home. Denied abdominal pain. Denied urinary symptoms. Patient admits to nausea and vomiting yesterday. She suffers from OA in both knees. Per patient history lispro 3 times daily with meals and glargine 10 units at bedtime. Janumet and Jardiance. Denied history of hypertension or cardiovascular disease. Patient was given 6 units subcu of lispro in preop. Patient does not take insulin at nights, as it makes her hypoglycemic overnight. She had two tortilla's and beans at dinner. Blood sugar was 150 before bed yesterday night. ED Course: At arrival, VSS 97.8, HR 98, RR 16, BP 105/58, O2 96%. labs showed. Patient was given 15 units of regular insulin in the ED. Also given Lactated Ringers IVB 1L x 2. Meds: Eliquis 5 mg twice daily, hydrocodone-APAP 5-325 PRN, Hydroxyzine 25 mg TID PRN, Jardiance 25mg QAM, Janumet 50-500mg tab Allergy: NKDA PMHx: T2DM and hx of DVT PSHx: None Fam Hx: Non-contributory, no family hx of heart attack Soc Hx: Denies smoking or using tobacco products. Denies drinking alcohol. Denies using marijuana, or illicit drugs. Review of Systems Review of Systems Systems Reviewed: All systems reviewed, normal except as documented Exam Vital Signs Temp Pulse Resp BP Pulse Ox 98.0 F 102 H 17 102/62 93 L 09/11/25 12:02 09/11/25 12:02 09/11/25 12:02 09/11/25 12:02 09/11/25 12:02 Narrative Exam General: Alert and oriented x3, No apparent distress. Skin: Intact, Warm, no rashes. HEENT: Normocephalic, Atraumatic. Normal neck range of motion, Supple. Trachea midline. Respiratory: [place] breathing pattern (deep, rapid, and labored breathing). Bronchial breath sounds, without crackles, or rhonchi. Breath sounds are equal bilaterally with equal chest expansion. Cardiovascular: RRR, normal S1, S2, No murmurs. Distal pulses 2+ Abdomen: Abdomen non-distended, without erythema, or lesions. Normotensive bowel sounds x4. Percussion tympanic. Palpation soft, nontender in all four quadrants. No organomagely. Absent rigidity, guarding, or rebound. Musculoskeletal/Extremities: No erythema, swelling, tenderness of any joints. No edema of BLE. DP pulses +2/3 b/l. Full active ROM of all four extremities. Neurologic: NEURO: Oriented x3, cranial nerves II to XII grossly intact. Muscle strength 5/5 on UE and LE b/l, Moves extremities x4. Sensation intact to gross touch along C6-T1 and L2-S1 dermatomes. No focal neurologic deficits noted Psych: Thoughts linear and responses appropriate. Results: Labs 09/12/25 11:10 09/12/25 14:14 Labs: Short CBC 09/11/25 Range/Units 11:35 WBC 11.7 H (3.6-11.0) Thou/mm3 Hgb 10.8 L (12.0-16.0) g/dL Hct 32.8 L (36.0-46.0) % Plt Count 270 D (140-440) Thou/mm3 BMP 09/11/25 10:20 Sodium 138 Potassium 4.2 Chloride 104 Carbon Dioxide 14.7 L* BUN 23 Creatinine 1.3 Glucose 492 H* Calcium 9.4 Liver Function 09/11/25 Range/Units 10:20 Albumin 4.2 D (3.4-4.8) gm/dL Urine 09/11/25 Range/Units 13:20 Urine Color Lt-Yellow (Lt Yel-Yel) Urine Clarity Clear (Clear/Hazy) Urine pH 6.0 (5.0-7.0) Ur Specific [place] 1.029 (1.001-1.035) Urine Protein Trace (Neg - Trace) Urine Glucose (UA) 4+ A (Negative) ABG Interpretation ABG results: 09/11/25 11:35 VBG pH 7.39 VBG pCO2 31 L VBG pO2 25 VBG Base Excess -5 L Quality Measures Quality Measures none Advance care planning discussed with:: patient Medications Home Medications and Allergies Home Medications ?Medication ?Instructions ?Recorded ?Confirmed ?Type apixaban 5 mg tablet (Eliquis) 5 mg PO BID 09/10/25 09/11/25 History empagliflozin 25 mg tablet 25 mg PO QAM 09/10/25 09/11/25 History (Jardiance) hydrocodone 5 mg-acetaminophen 325 1 tab PO Q8H PRN pain 09/10/25 09/11/25 History mg tablet hydroxyzine HCl 25 mg tablet 25 mg PO TID PRN anxiety 09/10/25 09/11/25 History insulin glargine U-300 conc 300 20 unit subcut HS 09/10/25 09/11/25 History unit/mL (3 mL) subcutaneous pen (Toujeo Max U-300 SoloStar) insulin lispro 100 unit/mL 10 unit subcut TID 09/10/25 09/11/25 History subcutaneous pen (Humalog KwikPen (U-100) Insulin) sitagliptin phosphate 50 1 tab PO BID 09/10/25 09/11/25 History mg-metformin 500 mg tablet (Janumet) Allergies Allergy/AdvReac Type Severity Reaction Status Date / Time No Known Allergies Allergy Verified 09/11/25 20:46 Visit Medications Lactated Ringer's (Lactated Ringers) 1,000 mls @ 999 mls/hr IV .Q1H1M ONE Stop: 09/11/25 14:53 Discontinued Medications Lactated Ringer's (Lactated Ringers) 1,000 mls @ 999 mls/hr IV .Q1H1M ONE Stop: 09/11/25 11:06 Last Infusion: 09/11/25 11:14 Dose: Infused Lactated Ringer's (Lactated Ringers) 1,000 mls @ 999 mls/hr IV .Q1H1M ONE Stop: 09/11/25 13:42 Last Admin: 09/11/25 13:27 Dose: 999 mls/hr Insulin Human Regular (Insulin Hum Regular 1 Unit/0.01 Ml (Per Unit)) 5 unit IV X1 ONE Stop: 09/11/25 10:02 Last Admin: 09/11/25 10:09 Dose: Not Given Insulin Human Regular (Insulin Hum Regular 1 Unit/0.01 Ml (Per Unit)) 10 unit IV X1 ONE Stop: 09/11/25 11:03 Last Admin: 09/11/25 11:22 Dose: 10 unit Assessment & Plan Plan Patient is a 65-year-old female with PMHx of T2DM insulin-dependent and LLE DVT in December 2024 on Eliquis currently on hold since September 08 for planned right knee arthroplasty was scheduled for 09/11/2025, admitted for Diabetic Ketoacidosis. #STEMI #Acute Coronary syndrome #Heart Block EKG obtained as workup of DKA, showed ST elevation in lead V1?V4, troponin elevated at 74.18. EKG shows ST elevations in anteroseptal leads. HR 90. Patient did not reports underlying heart disease. Pt denies chest pain/pressure or SOB. Bedside echocardiogram shows significant septal hypokinesis with ventricular hypokinesis Plan: -Cardiology, Dr Lyles, consulted, appreciate recs. Cardiology recommended transfer to higher level of care for emergent cardiac catheterization -Started therapeutic anticoagulation with UFH per ACS protocol, 12u/kg/h, with IVB 2800u (60u/kg) -clopidogrel 300mg loading dose -Aspirin 325mg loading dose -Placed a emergent pacemaker, but not activated as the patient is stable hemodynamically. - N.p.o. now # Mild diabetic Ketoacidosis #T2DM, insulin dependent Ddx: metabolic acidosis related to metformin, or infection cause of acidosis. VBG: pH 7.39 ->7.50, pCO2 31 ->21, bicarb 14.7 ->16.6 beta- hydroxybutyrate 2.8 H, and LA 4.4 ->3.5 Patient received IVB Lactated Ringer's 1 L x 3 Patient also received 10u of insulin regular in the ED Plan: Discontinued maintenance fluids Insulin lispro SC 2u Q4h + sliding scale insulin Q4h Insulin degludec SC 10 units daily KCl PO 20mEq x1 Zofran IVP 4mg Q6h PRN LA, Mg, renal fx, and VBG checks Q4h (10) pending UA and chest x-ray. #Anxiety in the light of QTc within normal limits (427) Hydroxyzine PO 25mg TID PRN anxiety #LLE DVT, hx of in December 2024 -holding Eliquis for now in anticipation of near-future surgery, will tochbase with Dr Currie who had held the med for Rt total knee replacement surgery. Health Maintenance: Disposition: Telemetry Diet: cardiac PPx DVT: Eliquis PO 5mg bid on hold PPx GI: [] Code Status: full code This case was discussed with my attending physician, Dr. Robles, and senior resident, Dr Araujo. Sheri Oconnell, DO PGY I Disclaimer: This note was dictated by speech recognition. Minor errors in inside technical sales representative may be present due to voice recognition software. Attending Provider Attestation/Addendum I have seen and examined the patient. I was physically present for the laureano portions of the services provided including history, physical exam, diagnosis, treatment plans and orders. I agree with assessment and plan of care as documented by residents. After examination of the patient and review of the clinical data I feel that this patient needs admission to the hospital for further treatment/evaluation. Patient is a 65 years old female with past medical history of type 2 diabetes mellitus, left lower extremity DVT on Eliquis currently on hold for elective knee arthroplasty which was scheduled today. During preop blood glucose check patient was found to have glucose of 510, medical response was called, patient was transferred to ED. In the ED, patient was found to have high anion gap metabolic acidosis with bicarbonate of 14.7, anion gap 19, glucose 492, hemoglobin A1c 8.3, beta-hydroxybutyrate 2.8 and lactate of 4.4. Urinalysis showed 3+ glucose and 2+ ketones. ABG showed pH of 7.39 with pCO2 31. Patient was initially thought to be in mild DKA and decision to admit to telemetry was made with aggressive IV hydration, electrolyte correction and insulin regimen. Patient had already received 2 L of IV fluid in the ED along with 10 units of regular insulin. She also had received subcutaneous insulin. EKG and troponin were ordered. EKG showed ST elevation on V1-V4 with Q waves. Troponin also came back and she was found to have level of 74.180. Cardiology was contacted, patient was started on loading dose of aspirin, Plavix and heparin drip. Due to emergency cardiac catheterization not being available at the facility, attempt was made to transfer the patient to [facility] which was unsuccessful due to high capacity at the facility. Discussed with both Dr. Lyles and Dr. Apple, stated that since patient had some nausea and vomiting yesterday, EKG findings of Q waves and high level of troponin, patient likely had ischemic event 12 to 24 hours earlier and recommended to continue with heparin drip with plan for cardiac catheterization early tomorrow morning. Patient also had third-degree AV block with bradycardia and heart rate going down up to 50s. Patient also had blood pressure on softer side but was able to maintain her MAP above 65. With finding of ACS, IV fluids were discontinued. Patient's lactate level initially downtrended but started going up again. With concern for impending cardiogenic shock, third-degree AV block, discussed with ICU, agreed on close monitoring of patient in ICU with transcutaneous pads in place for transcutaneous pacing if needed. Patient was transferred to ICU for further management. Even though this this note was carefully revised there may still be minor errors in inside technical sales representative due to voice recognition software. Venkatesh Robles MD
[2025-09-11 14:25] LABS: Albumin, Serum 4.1 gm/dL (3.4-4.8); Anion Gap 15 (7-16); BUN/Creatinine Ratio 19 Ratio (12-20); Blood Urea Nitrogen 21 mg/dL (9-23); Calcium 9.4 mg/dL (8.3-10.6); Calcium (Corrected) 9.4 mg/dL (8.5-10.1); Carbon Dioxide 16.6 mMol/L (20.0-31.0); Chloride 108 mMol/L (98-107); Creatinine (Component) 1.1 mg/dL (0.6-1.3); Glucose 249 mg/dL (74-106); Osmolality,Calculated 290 (275-295); Phosphorous 2.5 mg/dL (2.4-5.1); Potassium 3.5 mMol/L (3.4-5.1); Sodium 140 mMol/L (136-145); eGFR 56 See Note
[2025-09-11 14:39] LABS: Reflex Lactate? Y
--- NOTE | 2025-09-11 14:43 | EKG_ITS ---
[facility] Test Date: 2025-09-11 Pat Name: KAREEM HENDERSON Department: Room: - Gender: Female Mess Attendant Crew: : [id number] Requested By: Karan Araujo Order Number: [id number] Reading MD: Karan Araujo Measurements Intervals [place] Rate: 92 P: 40 NH: 164 QRS: -43 QRSD: 117 T: 120 QT: 345 QTc: 427 Interpretive Statements SINUS RHYTHM LEFT AXIS DEVIATION [QRS AXIS < -30] LOW QRS VOLTAGE IN PRECORDIAL LEADS [QRS DEFLECTION < 1.0 mV IN CHEST LEADS] ANTERIOR MYOCARDIAL INFARCTION , PROBABLY RECENT [40+ ms Q WAVE AND/OR ST/T ABNORMALITY IN V3/V4] ST ELEVATION, CONSIDER SEPTAL INJURY [MARKED ST ELEVATION W/O NORMALLY INFLECTED T-WAVE IN V1/V2] ACUTE AL No previous ECG available for comparison /[id number]/[email or web address]/[id number]
[2025-09-11 14:55] LABS: Lactic Acid, 3 HR 3.5 mMol/L (0.4-2.0)
[2025-09-11 15:05] LABS: Base Excess, Venous -5 (-3-3); O2 Saturation, Venous 94 % (96-97); PCO2, Venous 21 mmHg (36-56); PO2, Venous 55 mmHg (15-58); pH, Venous 7.50 (7.33-7.66)
[2025-09-11] MEDS: INSULIN DEGLUDEC 5 UNIT/0.05 ML (PER 5 UNITS) 10 UNIT SC (15:18)
[2025-09-11] MEDS: INSULIN LISPRO (AdmeLOG) 1 UNIT/0.01 ML UNIT 2 UNIT SC (15:20)
[2025-09-11] MEDS: INSULIN LISPRO (AdmeLOG) 1 UNIT/0.01 ML UNIT SC ×2 (15:20→21:58)
[2025-09-11 15:43] LABS: Albumin, Serum 3.9 gm/dL (3.4-4.8); Anion Gap 15 (7-16); BUN/Creatinine Ratio 23 Ratio (12-20); Blood Urea Nitrogen 23 mg/dL (9-23); Calcium 9.1 mg/dL (8.3-10.6); Calcium (Corrected) 9.2 mg/dL (8.5-10.1); Carbon Dioxide 18.3 mMol/L (20.0-31.0); Chloride 107 mMol/L (98-107); Creatinine (Component) 1.0 mg/dL (0.6-1.3); Glucose 267 mg/dL (74-106); Magnesium 1.8 mg/dL (1.6-2.6); Osmolality,Calculated 292 (275-295); Phosphorous 2.3 mg/dL (2.4-5.1); Potassium 3.9 mMol/L (3.4-5.1); Sodium 140 mMol/L (136-145); eGFR > 60 See Note
[2025-09-11] MEDS: CLOPIDOGREL BISULFATE 75 MG TABLET 300 MG PO (15:51)
--- NOTE | 2025-09-11 16:10 | EKG_ITS ---
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
--- NOTE | 2025-09-11 16:16 | ECHO_ITS ---
Patient Info Name: Raoul Damon Age: 65 years : 1960 Gender: Female Ht: 147 cm Wt: 46 kg BSA: 1.38 m2 BP: 132 / 72 mmHg HR: 100 bpm Exam Date: 09/12/2025 12:53 PM Admit Date: 09/11/2025 Site: [facility] Room Number: 2S3 Patient Status: I Technical Quality: Fair Exam Type: CA echo doppler complete Oil Tester: Liudmila Gracia Ordering Physician: Karan Araujo Study Info Indications STEMI - Primary Location: S2SX Left Ventricular Outflow Tract Name Value Normal LVOT 2D LVOT Diameter 1.8 cm LVOT Doppler LVOT Peak Velocity 89 cm/s LVOT Mean Gradient 1 mmHg LVOT VTI 13 cm LVOT VTI/AV VTI Ratio 0.6 LVOT Stroke Volume 32 ml Pulmonic Valve Name Value Normal PV Doppler PV Peak Velocity 100 cm/s Mitral Valve Name Value Normal MV Doppler MV Decel Davie 892 cm/s2 MV PHT 37 ms MV Area (PHT) 6.0 cm2 4.0-5.0 MV Diastolic Function MV E Peak Velocity 113 cm/s Tricuspid Valve Name Value Normal TV Regurgitation Doppler TR Peak Velocity 275 cm/s Estimated PAP/RSVP RA Pressure 8 mmHg <=5 PA Systolic Pressure 38 mmHg <36 RV Systolic Pressure 38 mmHg <36 Aortic Valve Name Value Normal AV 2D/MM AV Cusp Sep (MM) 1.1 cm AV Doppler AV Peak Velocity 140 cm/s AV Mean Gradient 4 mmHg AV VTI 21 cm AV Area (Cont Eq VTI) 1.6 cm2 >=3.0 AV Area (Cont Eq Calixto) 1.6 cm2 AV DI (Calixto) 0.63 AV Regurgitation 2D LVOT Area 2.5 cm2 Ventricles Name Value Normal LV Dimensions 2D/MM IVS Diastolic Thickness (2D) 0.9 cm 0.6-0.9 LVID Diastole (2D) 4.8 cm 3.8-5.2 LVIW Diastolic Thickness (2D) 0.7 cm 0.6-0.9 LVID Systole (2D) 4.1 cm 2.2-3.5 LVOT Diameter 1.8 cm LV Mass (2D Cubed) 126.69 g 67.00-162.00 LV Mass Index (2D Cubed) 92 g/m2 43-95 Relative Wall Thickness (2D) 0.29 <=0.42 IVS/LVIW Diastolic Thickness (2D) 1.29 0.00-1.50 LV Fractional Shortening/Ejection Fraction 2D/MM LV Fractional Shortening (2D) 15 % 27-45 LV EF (2D Teichholz) 31 % LV Diastolic Volume (4C MOD) 71 ml LV EF (4C MOD) 19 % LV Diastolic Length (4C) 6.5 cm LV Systolic Length (4C) 6.8 cm LV Stroke Volume (4C MOD) 13 ml Atria Name Value Normal LA Dimensions LA Volume (4C A-L) 35 ml LA Volume (BP A-L) 38 ml Left Ventricle Left ventricular chamber dimension is normal. Left ventricular systolic function is severely reduced with visually estimated ejection fraction of 20-25%. The inferoseptal wall, apical lateral wall, and mid anterolateral wall are hypokinetic. The inferior wall, anterior wall, basal anterolateral wall, basal anteroseptal, mid anteroseptal, basal inferolateral wall, and mid inferolateral wall are not scored. There is mild concentric hypertrophy noted in the left ventricle. Left ventricular segmental wall motion is normal. There is indeterminate diastolic function in the left ventricle. Right Ventricle Right ventricular chamber dimension is normal. Right ventricular systolic function is normal. Left Atrium Left atrial chamber dimension is mildly enlarged. Right Atrium Right atrial chamber dimension is normal. Aortic Valve The aortic valve is trileaflet. There is mild aortic valve sclerosis. There is no aortic valve stenosis with a peak velocity of 140 cm/s, mean gradient of 4 mmHg, and aortic valve area of 1.6 cm2. There is trace aortic valve regurgitation. Pulmonic Valve The pulmonic valve is normal. There is no pulmonic valve stenosis. There is no pulmonic regurgitation. Mitral Valve The mitral valve has normal leaflets. There is no mitral valve stenosis. There is mild mitral valve regurgitation. Tricuspid Valve The tricuspid valve leaflets are normal. There is no tricuspid valve stenosis. There is mild tricuspid valve regurgitation. Pulmonary hypertension, estimated pulmonary arterial systolic pressure is 38 mmHg and systemic blood pressure of 132 mmHg in systole. Pericardium/Pleural The pericardium appears normal. There is no pericardial effusion. No pleural effusion visualized. Inferior Vena Cava Normal inferior vena cava with >50% collapse upon inspiration consistent with normal right atrial pressure, 8 mmHg. Aorta The aortic measurements are indexed to age and body surface area. The aortic root at the sinus of Valsalva is not well visualized. The prox ascending aorta is not well visualized. Summary 1. Left ventricle size is normal and systolic function is severely reduced. Estimated ejection fraction is 20-25%. There is indeterminate diastolic function. There is mild concentric hypertrophy noted. 2. Right ventricle chamber size is normal and systolic function is normal. Estimated RVSP is 38 mmHg. Mild HTN. 3. The left atrium is mildly enlarged. The right atrium is normal. 4. There is mild aortic valve sclerosis with no stenosis and trace regurgitation. 5. There is mild mitral valve regurgitation. 6. There is mild tricuspid valve regurgitation. 7. Normal IVC with estimated RA pressure 8 mmHg. Report Signatures Finalized by Samantha Lyles on 09/17/2025 07:46 AM
--- NOTE | 2025-09-11 16:20 | PD.IMCONS ---
HPI Data of Consult Requesting Physician: Venkatesh Robles MD Primary Care Provider: Physician No Primary/Family Consult Narrative History of present illness: This is a 65-year-old female with PMHx of diabetes mellitus type 2 insulin-dependent and LLE DVT in December 2024 on Eliquis currently on hold since for planned right knee arthroplasty was scheduled for 09/11/2025. Patient presented to the emergency room after a medical response unit was called at preop for a blood glucose of 510. pt EKG shws T inversion with acute changes ; troponin 50 pt denies chest pain cc:: cc: Venkatesh Robles MD Meds Home Medications and Allergies Home Medications ?Medication ?Instructions ?Recorded ?Confirmed ?Type apixaban 5 mg tablet (Eliquis) 5 mg PO BID 09/10/25 09/10/25 History empagliflozin 25 mg tablet 25 mg PO QAM 09/10/25 09/10/25 History (Jardiance) hydrocodone 5 mg-acetaminophen 325 1 tab PO Q8H PRN pain 09/10/25 09/10/25 History mg tablet hydroxyzine HCl 25 mg tablet 25 mg PO TID PRN anxiety 09/10/25 09/10/25 History insulin glargine U-300 conc 300 20 unit subcut HS 09/10/25 09/10/25 History unit/mL (3 mL) subcutaneous pen (Toujeo Max U-300 SoloStar) insulin lispro 100 unit/mL 10 unit subcut TID 09/10/25 09/10/25 History subcutaneous pen (Humalog KwikPen (U-100) Insulin) sitagliptin phosphate 50 1 tab PO BID 09/10/25 09/10/25 History mg-metformin 500 mg tablet (Janumet) Allergies Allergy/AdvReac Type Severity Reaction Status Date / Time No Known Allergies Allergy Verified 09/11/25 10:02 Exam Vital Signs Temp Pulse Resp BP Pulse Ox O2 Del Method 97.9 F 63 17 91/55 L 92 L Room Air 09/11/25 16:06 09/11/25 16:06 09/11/25 16:06 09/11/25 16:06 09/11/25 16:06 09/11/25 16:06 Routine HEENT Exam Head: Present normocephalic and atraumatic Eye: Present EOMI and PERRL ENT: Present mucous membranes moist Routine Neck Exam Neck: Present supple and trachea midline Routine Respiratory Exam Respiratory: Present chest non-tender, lungs clear, normal breath sounds and no resp distress Routine Cardiovascular Exam Cardiovascular: Present RRR Routine Abdominal Exam Abdominal: Present soft and normoactive bowel sounds Routine Extremities Exam Extremities: Present full ROM Routine Skin Exam Skin: Present intact, dry and warm Routine Neurological Exam Neurological: Present alert, oriented X3 and CN II-XII intact Routine Psychiatric Exam Psychiatric: Present normal affect and normal thought process Results Labs 09/11/25 11:35 09/11/25 14:50 Labs: Short CBC 09/11/25 Range/Units 11:35 WBC 11.7 H (3.6-11.0) Thou/mm3 Hgb 10.8 L (12.0-16.0) g/dL Hct 32.8 L (36.0-46.0) % Plt Count 270 D (140-440) Thou/mm3 BMP 09/11/25 09/11/25 09/11/25 10:20 13:30 14:50 Sodium 138 140 140 Potassium 4.2 3.5 D 3.9 Chloride 104 108 H 107 Carbon Dioxide 14.7 L* 16.6 L 18.3 L BUN 23 21 23 Creatinine 1.3 1.1 1.0 Glucose 492 H* 249 H D 267 H Calcium 9.4 9.4 9.1 Cardiac Enzymes 09/11/25 Range/Units 14:50 Troponin I 74.180 H* (0.0-0.045) ng/mL Liver Function 09/11/25 09/11/25 09/11/25 Range/Units 10:20 13:30 14:50 Albumin 4.2 D 4.1 3.9 (3.4-4.8) gm/dL Urine 09/11/25 Range/Units 13:20 Urine Color Lt-Yellow (Lt Yel-Yel) Urine Clarity Clear (Clear/Hazy) Urine pH 6.0 (5.0-7.0) Ur Specific [place] 1.029 (1.001-1.035) Urine Protein Trace (Neg - Trace) Urine Glucose (UA) 4+ A (Negative) ABG Interpretation ABG results: 09/11/25 09/11/25 11:35 14:50 VBG pH 7.39 7.50 VBG pCO2 31 L 21 L D VBG pO2 25 55 D VBG Base Excess -5 L -5 L Assessment and Plan Assessment and plan (1) Hyperosmolar hyperglycemic state (HHS): Status: Acute (2) Acute hyperglycemia: Status: Acute (3) Non-STEMI (non-ST elevated myocardial infarction): Status: Acute (4) Coronary artery disease: Status: Acute Additional Assessment & Plan Additional Plan: asa / plavix/ heparin echo heart cath tomorrow
[2025-09-11] MEDS: HEPARIN SOD INJ 5000 UNIT/ML VIAL 2800 UNIT IV (16:22)
[2025-09-11] MEDS: Heparin/D5w 25K 250 ML Ivpb 25,000 UNIT/250 ML BAG 5.552 UNIT IV (16:23)
[2025-09-11 16:25] LABS: Lactate (Lactic Acid) 4.4 mMol/L (0.4-2.0)
--- NOTE | 2025-09-11 16:32 | PD.RESDS ---
Planned Discharge Date 09/11/25 DS: Providers Provider Date of admission: 09/11/25 14:15 Primary care physician: Physician No Primary/Family Admitting Provider: Venkatesh Robles MD Attending Provider on Admission: Venkatesh Robles MD Consults: 09/11/25 15:34 Consult to Cardiology Urgent Comment: Consulting Provider: Samantha Lyles 09/11/25 16:17 Consult to Frame Nailer Stat Comment: Bradycardia, STEMI Consulting Provider: Ophelia Fisher 09/11/25 16:27 Referral - Transcription Specialist Stat Service Needed for Transfer: Cardiology Addl Comments:: STEMI Attending Provider on DC: Venkatesh Robles MD Discharging Provider: Venkatesh Robles MD Anticipated date of discharge: 09/11/25 DS: Diagnosis Problem List Completed Was Problem List Reviewed/Reconciled?: Yes Hospital Course Hospital Course Hospital course: Hospital course: Ms Nance is a 65-year-old female with past medical history of type 2 diabetes mellitus, insulin-dependent, left lower extremity DVT in December 2024 on Eliquis currently on hold since 08 September for elective knee arthroplasty which was scheduled for 09/11/2025. Patient presented to the emergency department today after medical response response was called preop for blood glucose of 510, arthroplasty was canceled. In the ER patient was noted to have high anion gap metabolic acidosis, with bicarb 14.7, glucose 492 and beta hydroxybutyrate elevated at 2.8 with lactic acidosis of 4.4. Hospitalist team was consulted for admission for mild to moderate DKA and lactic acidosis. During history patient reported no chest pain did complain of nausea and vomiting yesterday and actively denying chest pain, EKG obtained as part of DKA workup showed ST elevation in lead V1?V4 with troponin elevation at 74.180, bedside echocardiogram shows septal hypokinesis with LV hypokinesis, patient did receive 3 L LR bolus and bicarb improved to 18.3 with anion gap closed x 1. Cardiology was consulted in the emergency department, cardiac cath services unavailable at the facility and cardiology is requesting emergent transfer to higher level of care for emergent cardiac cath for ST elevation myocardial infarction. Patient is currently stable for transfer. 4:45 PM: Discussed over the phone with group reservations coordinator Dr. Dunlap group reservations coordinator on-call who recommends transfer to [facility], he will discuss the case with Dr. Carroll at [facility]. Hospital diagnoses #ST elevation myocardial infarction #Elevated troponin #Acute coronary syndrome #Mild DKA, resolving #Type 2 diabetes mellitus #Anxiety #Lactic acidosis #High anion gap metabolic acidosis #Left lower extremity DVT, by history Eliquis on hold since 09/08 Case discussed with Attending Physician Dr. Venkatesh Araujo MD Internal Medicine PGY-2 Disclaimer: This note was dictated by speech recognition. Minor errors in pathology secretary/transcriptionist may be present due to voice recognition software. Time Spent with Patient Time attestation: Total time spent providing and/or coordinating discharge services: Time spent: Greater than 30 minutes Exam Vital Signs Temp Pulse Resp BP Pulse Ox O2 Del Method 97.9 F 63 17 91/55 L 92 L Room Air 09/11/25 16:06 09/11/25 16:06 09/11/25 16:06 09/11/25 16:06 09/11/25 16:06 09/11/25 16:06 Narrative Exam Physical Exam General: Awake and in no acute distress. Conversational and non-toxic appearing. HEENT: Normocephalic, atraumatic, mucous membranes moist. Heart: Regular rate and rhythm, no murmurs. Lungs: Clear to auscultation with no wheezing or crackles. Abdomen: Soft, nondistended, nontender, positive bowel sounds. ?No guarding or rebound tenderness. Neurologic: Alert and oriented x3, no gross neurological deficit, and patient able to move all 4 extremities. Extremities: No edema. Skin: No rash or ecchymoses. Discharge Plan Plan Patient condition on transfer: Stable Prescriptions/Referrals Prescriptions/Med Rec: No Action hydrocodone-acetaminophen 5-325 mg tablet 1 tab PO Q8H PRN (Reason: pain) Jardiance 25 mg tablet 25 mg PO QAM Eliquis 5 mg tablet 5 mg PO BID hydroxyzine HCl 25 mg tablet 25 mg PO TID PRN (Reason: anxiety) Janumet 50-500 mg tablet 1 tab PO BID insulin glargine U-300 conc [Toujeo Max U-300 SoloStar] 300 unit/mL (3 mL) insulin pen 20 unit subcut HS Patient Comments: pt stated glucose was constantly low so she stopped insulin 10 days ago insulin lispro [Humalog KwikPen Insulin] 100 unit/mL insulin pen 10 unit subcut TID Referrals: No Primary/Family,Physician [Primary Care Provider] Patient/Caregiver Discharge Instructions Print Language: Micronesian Quality Discharge Quality Measures none MD Attestestation MD Attestation I have seen and examined the patient. I was physically present for the laureano portions of the services provided including history, physical exam, diagnosis, treatment plans and orders. I agree with assessment and plan of care as documented by residents. Even though this this note was carefully revised there may still be minor errors in pathology secretary/transcriptionist due to voice recognition software. Venkatesh Robles MD
[2025-09-11 16:38] LABS: INR 1.0 (0.9-1.3); Partial Thromboplastin Time 23.6 Seconds (22.0-36.0); Prothrombin Time 11.1 Seconds (9.0-12.2)
[2025-09-11 18:26] LABS: Base Excess, Venous -5 (-3-3); Lactate (Lactic Acid) 3.9 mMol/L (0.4-2.0); O2 Saturation, Venous 70 % (96-97); PCO2, Venous 26 mmHg (36-56); PO2, Venous 35 mmHg (15-58); pH, Venous 7.45 (7.33-7.66)
[2025-09-11] MEDS: POTASSIUM CHLORIDE 10% 20 MEQ/15 ML UDC PO (18:32)
--- NOTE | 2025-09-11 18:44 | PD.RESEVENT ---
Documentation for date of: 09/12/25 Event Note Event Note: Case was discussed with transfer nurse, patient declined at [facility] for emergent transfer due to high capacity at the facility. Discussed with travel specialist Dr. Dunlap and Cardiac Director Public Servicedirector cardiovascular Dr Apple who reviewed the case, per both cardiologists patient likely had an event likely 12 to 24 hours ago further review of EKG with deep Q waves and the high level of troponin which was likely reflected by patient's symptoms of nausea and vomiting yesterday. Per Dr. Dunlap and patient is stable for cardiac cath in a.m., will keep n.p.o. for now however he recommends patient to be monitored in intensive care unit and recommends low-dose dopamine drip as needed for bradycardia. We will continue with heparin drip. We discussed the case with lumber tailer Dr. Fisher who is agreeable to transfer patient to intensive care unit. Patient will be upgraded to ICU, signed out to ICU team. Case discussed with Attending Physician Dr. Venkatesh Araujo MD Internal Medicine PGY-2 Disclaimer: This note was dictated by speech recognition. Minor errors in patient care technician instructor may be present due to voice recognition software.
[2025-09-11 18:45] LABS: Albumin, Serum 3.8 gm/dL (3.4-4.8); Anion Gap 13 (7-16); BUN/Creatinine Ratio 22 Ratio (12-20); Blood Urea Nitrogen 24 mg/dL (9-23); Calcium 9.5 mg/dL (8.3-10.6); Calcium (Corrected) 9.7 mg/dL (8.5-10.1); Carbon Dioxide 18.3 mMol/L (20.0-31.0); Chloride 107 mMol/L (98-107); Creatinine (Component) 1.1 mg/dL (0.6-1.3); Estimated Creatinine Clearance 36.6 mL/min (>60); Glucose 266 mg/dL (74-106); Magnesium 1.7 mg/dL (1.6-2.6); Osmolality,Calculated 288 (275-295); Phosphorous 2.1 mg/dL (2.4-5.1); Potassium 4.0 mMol/L (3.4-5.1); Sodium 138 mMol/L (136-145); eGFR 56 See Note
--- NOTE | 2025-09-11 18:45 | PD.RESCONSUL ---
HPI Data of Consult Requesting Physician: Venkatesh Robles MD Admitting Provider: Venkatesh Robles MD Attending Provider: Venkatesh Robles MD Primary Care Provider: Physician No Primary/Family Consult Narrative Reason for consult: Third degree heart block and STEMI History of present illness: ICU team was asked to see a 65-year-old female with past medical history of diabetes and left lower extremity DVT December 2024 who was previously on Eliquis, but was on hold since the of this month due to schedule right knee arthroplasty on 09/11/2025 after patient had a medical response called in the preop room due to blood sugars in the 500s. Patient stated that yesterday she did have some nausea, but she did not have any vomiting and has not had any chest pain or shortness of breath and has otherwise been feeling her usual health, but that today they told her that she had high blood sugars. In the ED patient was found to have DKA of beta-hydroxybutyrate of 2.8 and anion gap of 19 with bicarb of 14.7 and a lactic acidosis with a lactic acid of 4.4. Patient was initially then admitted to the telemetry floor and hospitalist team did order an EKG which revealed ST elevations in V1-V4 with some T wave inversions in lead I. Given findings and EKG hospitalist team decided to get a troponin levels which showed troponins of 74.180 and given this findings cardiology was consulted at this time. Cardiology recommended to load the patient on aspirin, Plavix, and start the patient also on heparin drip. On my assessment patient stated that she had not had any heart problems in the past and that she had not been having any chest pains or shortness of breath and that her only symptom was that she was complaining some nausea that started yesterday and epigastric pain. She did not have any numbness or tingling in the face or left extremity. She also mentioned that she did not have any family history of heart disease and that she had never had any cardiac events in the past. While in the ED patient also became bradycardic therefore repeat EKGs were ordered patient appeared to be in third-degree heart block and was bradycardic in the 40s to 50s with resolution of the heart block and going to the 70s. Patient would remain totally asymptomatic through these episodes, but blood pressure was in the 65-68 MAP at this time. ED course: Initially came in mildly hypotensive and afebrile. Initial labs were relevant for leukocytosis (WBC 11.7), low hemoglobin with low hemoglobin of 10.8, high anion gap metabolic acidosis with anion gap of 19 and a bicarb of 14.7 with sugars of 492, lactic acidosis with a lactic of 4.4, beta-hydroxybutyrate of 2.8. Initial imaging included chest x-ray which was relevant for interstitial disease. In the ED patient received 10 units of insulin regular IV x 1 and a total of 3 L of IV fluid and was also given degludec 10 units subcu along with sliding scale. Patient was also loaded with Plavix and aspirin was placed on heparin drip. PMH: diabetes and left lower extremity DVT December 2024 who was previously on Eliquis, but was on hold since the of this month Social Hx: Denies any smoking, drugs, alcohol FMH: Denies any heart issues in the family including siblings or parents cc:: cc: Venkatesh Robles MD Review of Systems Review of Systems Systems Reviewed: All systems reviewed, normal except as documented Past Medical History Past Medical History Comments PMH COMMENT: PMH: diabetes and left lower extremity DVT December 2024 who was previously on Eliquis, but was on hold since the of this month Social Hx: Denies any smoking, drugs, alcohol FMH: Denies any heart issues in the family including siblings or parents Exam Vital Signs Temp Pulse Resp BP Pulse Ox O2 Del Method 98.0 F 56 L 19 103/48 L 96 Room Air 09/11/25 17:50 09/11/25 17:50 09/11/25 17:50 09/11/25 17:50 09/11/25 17:50 09/11/25 17:50 Narrative Exam Gen: A&O X 3, NAD HEENT: NCAT, EOMI, Pupils reactive PATTY, not icteric. External ears normal. No rhinorrhea. Moist mucous membranes. Neck: Supple, full range of motion, no observable masses, No meningeal sign. Lungs: No Respiratory distress, clear bilateral. CV: heart sounds distant, but no murmurs appreciated. Abdomen: Soft, nondistended, No rebound tenderness. MSK: No joint swelling, no redness, peripheral pulses presents, No peripheral edema. Skin: No rashes, petechiae, lesions. Neuro: No focal neurological deficits appreciated, sensory and motor intact. Psych: Cooperative, appropriate mood and effect. Results Labs 09/11/25 11:35 09/11/25 18:21 Labs: Short CBC 09/11/25 Range/Units 11:35 WBC 11.7 H (3.6-11.0) Thou/mm3 Hgb 10.8 L (12.0-16.0) g/dL Hct 32.8 L (36.0-46.0) % Plt Count 270 D (140-440) Thou/mm3 BMP 09/11/25 09/11/25 09/11/25 10:20 13:30 14:50 Sodium 138 140 140 Potassium 4.2 3.5 D 3.9 Chloride 104 108 H 107 Carbon Dioxide 14.7 L* 16.6 L 18.3 L BUN 23 21 23 Creatinine 1.3 1.1 1.0 Glucose 492 H* 249 H D 267 H Calcium 9.4 9.4 9.1 Cardiac Enzymes 09/11/25 Range/Units 14:50 Troponin I 74.180 H* (0.0-0.045) ng/mL Liver Function 09/11/25 09/11/25 09/11/25 Range/Units 10:20 13:30 14:50 Albumin 4.2 D 4.1 3.9 (3.4-4.8) gm/dL Urine 09/11/25 Range/Units 13:20 Urine Color Lt-Yellow (Lt Yel-Yel) Urine Clarity Clear (Clear/Hazy) Urine pH 6.0 (5.0-7.0) Ur Specific Brimson 1.029 (1.001-1.035) Urine Protein Trace (Neg - Trace) Urine Glucose (UA) 4+ A (Negative) ABG Interpretation ABG results: 09/11/25 09/11/25 09/11/25 11:35 14:50 18:21 VBG pH 7.39 7.50 7.45 VBG pCO2 31 L 21 L D 26 L VBG pO2 25 55 D 35 D VBG Base Excess -5 L -5 L -5 L Quality Measures Quality Measures none Advance care planning discussed with:: patient Medications Home Medications and Allergies Home Medications ?Medication ?Instructions ?Recorded ?Confirmed ?Type apixaban 5 mg tablet (Eliquis) 5 mg PO BID 09/10/25 09/10/25 History empagliflozin 25 mg tablet 25 mg PO QAM 09/10/25 09/10/25 History (Jardiance) hydrocodone 5 mg-acetaminophen 325 1 tab PO Q8H PRN pain 09/10/25 09/10/25 History mg tablet hydroxyzine HCl 25 mg tablet 25 mg PO TID PRN anxiety 09/10/25 09/10/25 History insulin glargine U-300 conc 300 20 unit subcut HS 09/10/25 09/10/25 History unit/mL (3 mL) subcutaneous pen (Toujeo Max U-300 SoloStar) insulin lispro 100 unit/mL 10 unit subcut TID 09/10/25 09/10/25 History subcutaneous pen (Humalog KwikPen (U-100) Insulin) sitagliptin phosphate 50 1 tab PO BID 09/10/25 09/10/25 History mg-metformin 500 mg tablet (Janumet) Allergies Allergy/AdvReac Type Severity Reaction Status Date / Time No Known Allergies Allergy Verified 09/11/25 10:02 Visit Medications Acetaminophen (Acetaminophen 325 Mg Tablet) 650 mg PO Q6H PRN PRN Reason: fever >100 or pain 1-310 Stop: 10/11/25 14:14 Hydrocodone Bitart/Acetaminophen (Hydrocodone/Apap 5/325 Tablet) 1 tab PO Q4HR PRN PRN Reason: PAIN SCALE 4-10(Mod-Sev Stop: 09/16/25 14:19 Atorvastatin Calcium (Atorvastatin Calcium 20 Mg Tablet) 80 mg PO HS NATALIE Stop: 10/11/25 20:59 Dextrose (Dextrose 50%-Water Inj 50 Ml Syringe) 25 ml IV Q15MIN PRN PRN Reason: BG 50-70 responsive npo pt Stop: 10/11/25 14:38 Dextrose (Dextrose 50%-Water Inj 50 Ml Syringe) 50 ml IV Q15MIN PRN PRN Reason: BG <50 OR BG <70 & pt unresponsive Stop: 10/11/25 14:38 Glucagon (Glucagon Inj 1 Mg Vial) 1 mg IM Q15MIN PRN PRN Reason: BG <70, and no IV access Heparin Sodium/Dextrose (Heparin In D5w Ivpb) 25,000 unit in 250 mls @ 5.552 mls/hr IV .Q24H NATALIE; Protocol Stop: 09/25/25 15:44 Last Admin: 09/11/25 16:23 Dose: 12 units/kg/hr, 5.552 mls/hr Potassium Phosphate (Pot Phos 15 Mmol In Ns 250 Ml) 15 mmol in 250 mls @ 62.5 mls/hr IV X1 ONE Stop: 09/11/25 20:17 Insulin Degludec (Insulin Degludec 5 Unit/0.05 Ml (Per 5 Units)) 10 unit SC QDAY NATALIE Stop: 10/11/25 14:44 Last Admin: 09/11/25 15:18 Dose: 10 unit Insulin Human Lispro (Insulin Lispro (Admelog) 1 Unit/0.01 Ml Unit) 2 unit SC Q4H [facility] Stop: 10/11/25 14:44 Last Admin: 09/11/25 15:20 Dose: 2 unit Insulin Human Lispro (Insulin Lispro (Admelog) 1 Unit/0.01 Ml Unit) 0 unit SC Q4HR [facility]; Protocol Stop: 10/11/25 14:44 Last Admin: 09/11/25 15:20 Dose: 4 unit Ondansetron HCl (Ondansetron Inj 2 Mg/Ml Inj 2 Ml) 4 mg IVP Q6H PRN; Protocol PRN Reason: NAUSEA OR VOMITING Stop: 10/11/25 14:19 Discontinued Medications Hydrocodone Bitart/Acetaminophen (Hydrocodone/Apap 5/325 Tablet) 1 tab PO Q4HR PRN PRN Reason: PAIN SCALE 4-6 (Moderate Stop: 09/16/25 14:19 Hydrocodone Bitart/Acetaminophen (Hydrocodone/Apap 10/325 Tab) 1 tab PO Q4HR PRN PRN Reason: PAIN SCALE 7-10 (Severe Stop: 09/16/25 14:19 Aspirin (Aspirin 325 Mg Tablet) 325 mg PO X1 ONE Stop: 09/11/25 15:31 Last Admin: 09/11/25 15:51 Dose: 325 mg Clopidogrel Bisulfate (Clopidogrel Bisulfate 75 Mg Tablet) 75 mg PO X1 ONE Stop: 09/11/25 15:31 Clopidogrel Bisulfate (Clopidogrel Bisulfate 75 Mg Tablet) 300 mg PO X1 ONE Stop: 09/11/25 15:38 Last Admin: 09/11/25 15:51 Dose: 300 mg Heparin Sodium (Porcine) (Heparin Sod Inj 5000 Unit/Ml Vial) 2,800 unit 60 unit/kg (2800 unit) IV X1 ONE; Protocol Stop: 09/11/25 15:31 Last Admin: 09/11/25 16:22 Dose: 2,800 unit Lactated Ringer's (Lactated Ringers) 1,000 mls @ 999 mls/hr IV .Q1H1M ONE Stop: 09/11/25 11:06 Last Infusion: 09/11/25 11:14 Dose: Infused Lactated Ringer's (Lactated Ringers) 1,000 mls @ 999 mls/hr IV .Q1H1M ONE Stop: 09/11/25 13:42 Last Infusion: 09/11/25 14:47 Dose: Infused Lactated Ringer's (Lactated Ringers) 1,000 mls @ 999 mls/hr IV .Q1H1M ONE Stop: 09/11/25 14:53 Last Admin: 09/11/25 15:17 Dose: 999 mls/hr Lactated Ringer's (Lactated Ringers) 1,000 mls @ 75 mls/hr IV .[id number] NATALIE Stop: 10/11/25 14:38 Dopamine HCl/Dextrose (Intropin In D5w Ivpb) 400 mg in 250 mls @ 8.675 mls/hr IV .Q24H NATALIE; Protocol Stop: 10/11/25 16:45 Dobutamine HCl/Dextrose (Dobutrex/D5w Ivpb) 500 mg in 250 mls @ 1.388 mls/hr IV .Q24H NATALIE Stop: 10/11/25 17:12 Insulin Human Regular (Insulin Hum Regular 1 Unit/0.01 Ml (Per Unit)) 5 unit IV X1 ONE Stop: 09/11/25 10:02 Last Admin: 09/11/25 10:09 Dose: Not Given Insulin Human Regular (Insulin Hum Regular 1 Unit/0.01 Ml (Per Unit)) 10 unit IV X1 ONE Stop: 09/11/25 11:03 Last Admin: 09/11/25 11:22 Dose: 10 unit Potassium Chloride (Potassium Chloride 10% 20 Meq/15 Ml Udc) 20 meq PO X1 ONE Stop: 09/11/25 14:49 Last Admin: 09/11/25 18:32 Dose: 20 meq Assessment & Plan Plan 65-year-old female with past medical history of diabetes and left lower extremity DVT December 2024 who was previously on Eliquis, but was on hold since the of this month due to schedule right knee arthroplasty on 09/11/2025 was upgraded to the ICU on 09/11/2025 due to STEMI complicated by third-degree AV block along with mild DKA. Neurology: No active disease Cardiovascular: #STEMI #Third-degree AV block Patient denies any chest pain or shortness of breath only complaining of some nausea and epigastric pain. Patient found to have ST elevations on EKG on leads V1 through V along with some T wave inversions in lead I. Bedside ultrasound showed wall motion abnormalities Patient was attempted to be transferred for stat heart cath, but patient is currently still no accepting facilities at this time. Repeat EKG showed third-degree AV block Troponin levels were 74.18 GEORGI score 9 points 35.9% risk of all-cause mortality at 30 days Treatment plan: Got loading dose of aspirin and Plavix Currently on heparin drip as per [facility] protocol Patient currently has exterior pacer pads on board in the setting of third-degree AV block Atorvastatin 80 at bedtime Cardiology consulted Cardiology will likely do heart cath tomorrow in the a.m. Follow-up: If patient does decompensate and blood pressure decreases will need to be reassessed to see what type of shock patient is in currently. Low suspicion for distributive given no source of infection nor spinal cord issues, also low suspicion for obstructive as no visible pericardial effusion on echo or signs concerning for PE. If patient is in fact in cardiogenic shock consider dopamine versus dobutamine. Respiratory No active disease GI No active disease Renal #Anion gap metabolic acidosis Likely in the setting of DKA Patient's bicarb was 14.7 and anion gap was 19 Glucose 492 and A1c 8.3 Improving with bicarb of 18.3 and anion gap of 13 Treatment plan: Insulin regular 10 units x 1 Degludec 10 units daily ISS S/p 3 L of IV fluids Treatment follow-up: Follow-up on repeat renal panel and ABG Follow-up in a.m. beta-hydroxybutyrate Reevaluate patient prior to giving IV fluids given possibility of patient progressing to cardiogenic shock in the setting of STEMI and third-degree AV block. # Lactic acidosis Patient's lactic acid was initially 4.4 likely in the setting of DKA as well as STEMI Downtrended to 3.5 and up trended to 3.9 again. Treatment plan: S/p 3 L of IV fluids Follow-up on lactic acid #Hypophosphatemia Patient's Phos 2.1 most currently Treatment plan: Potassium Phos x 1 given Replete as necessary Treatment follow-up: Follow-up on repeat renal function panel No active disease Heme #Normocytic normochromic anemia Patient's hemoglobin 10.8 from 11.8 yesterday No active signs of bleeding at this time Treatment plan: Follow-up in a.m. CBC # Leukocytosis Patient's WBC 11.7 likely reactive Less likely infectious as no fevers nor infectious source. Treatment plan: Will follow-up in morning CBC Endo #Mild DKA Initial bicarb was 14.7 initial anion gap was 19 Glucose was 492 initial labs and A1c was 8.3. Patient has had 3 L of IV fluids as well as insulin requiring 10 units in the ED Anion gap has improved to 13 and bicarb has improved to 18.3. Treatment plan: Patient will continue to be n.p.o. Degludec 10 units daily ISS q4hr Treatment follow-up: Repeat renal panel, ABG, and beta-hydroxybutyrate in the a.m. ID No active disease MSK No active disease Lines: PIV Drips: Heparin drip Vent: none Diet: NPO DVT prophylaxis: Heparin drip CODE STATUS: Full code Reason of hospitalization: Patient is upgraded to ICU given need of pacing pads in the setting of third degree block and STEMI, plan for heart cath tomorrow Case disclosed with Attending Dr. Phillip Durand PGY2 Disclaimer: Even though this this note was dictated by speech recognition and even though it was carefully revised there may still be minor errors in transcriptionist due to voice recognition software.
[2025-09-11 19:20] LABS: Reflex Lactate? Y
[2025-09-11] MEDS: POT PHOS 15 mMol in NS 250 ML 15 MMOL/250 ML BAG 62.5 MMOL IV (19:24)
[2025-09-11 20:03] LABS: Base Excess -4 (-3-3); HCO3 18 mEq/L (20-26); Inspired O2, VO2 Liters 2 L/min; O2 Saturation 94 % (91-98); PCO2 22 mmHg (32.0-48.0); pH, Arterial 7.52 (7.35-7.45)
[2025-09-11 20:04] LABS: Allen Test Performed/OK; PO2 60 mmHg (83-108); Puncture Site Right Radial
[2025-09-11] MEDS: Magnesium Sulfate 4 GM Ivpb 4 GM/50 ML BAG IV (20:38)
[2025-09-11 21:23] LABS: Reflex Lactate? Y
[2025-09-11] MEDS: ATORVASTATIN CALCIUM 20 MG TABLET 80 MG PO (21:57)
[2025-09-11 23:10] LABS: Lactate (Lactic Acid) 2.2 mMol/L (0.4-2.0)
[2025-09-11 23:12] LABS: Base Excess, Venous -4 (-3-3); O2 Saturation, Venous 47 % (96-97); PCO2, Venous 33 mmHg (36-56); PO2, Venous 27 mmHg (15-58); pH, Venous 7.40 (7.33-7.66)
[2025-09-11 23:29] LABS: Partial Thromboplastin Time 38.9 Seconds (22.0-36.0)
[2025-09-11 23:42] LABS: Albumin, Serum 3.7 gm/dL (3.4-4.8); Anion Gap 13 (7-16); BUN/Creatinine Ratio 29 Ratio (12-20); Blood Urea Nitrogen 29 mg/dL (9-23); Calcium 8.6 mg/dL (8.3-10.6); Calcium (Corrected) 8.8 mg/dL (8.5-10.1); Carbon Dioxide 19.5 mMol/L (20.0-31.0); Chloride 107 mMol/L (98-107); Creatinine (Component) 1.0 mg/dL (0.6-1.3); Estimated Creatinine Clearance 40.3 mL/min (>60); Glucose 287 mg/dL (74-106); Magnesium 3.7 mg/dL (1.6-2.6); Osmolality,Calculated 293 (275-295); Phosphorous 5.4 mg/dL (2.4-5.1); Potassium 5.4 mMol/L (3.4-5.1); Sodium 139 mMol/L (136-145); eGFR > 60 See Note
[2025-09-11] MEDS: HEPARIN SOD INJ 5000 UNIT/ML VIAL 1400 UNIT IV (23:57)
[2025-09-12] VITALS (107 sets, daily range): BP systolic 75–142; BP diastolic 35–96; PULSE 48–112; RESP 15–43; TEMP 36.1–36.9; O2SAT 83–100; BMI 20.3
[2025-09-12] MEDS: SODIUM CHLORIDE 0.9% 250 ML 250 ML 999 ML IV (00:45)
[2025-09-12 00:53] LABS: Albumin, Serum 3.8 gm/dL (3.4-4.8); Anion Gap 11 (7-16); BUN/Creatinine Ratio 24 Ratio (12-20); Blood Urea Nitrogen 22 mg/dL (9-23); Calcium 8.7 mg/dL (8.3-10.6); Calcium (Corrected) 8.9 mg/dL (8.5-10.1); Carbon Dioxide 20.3 mMol/L (20.0-31.0); Chloride 109 mMol/L (98-107); Creatinine (Component) 0.9 mg/dL (0.6-1.3); Estimated Creatinine Clearance 44.8 mL/min (>60); Glucose 195 mg/dL (74-106); Osmolality,Calculated 287 (275-295); Phosphorous 3.5 mg/dL (2.4-5.1); Potassium 4.1 mMol/L (3.4-5.1); Sodium 140 mMol/L (136-145); eGFR > 60 See Note
[2025-09-12 02:07] LABS: Reflex Lactate? Y
[2025-09-12] MEDS: FAMOTIDINE INJ 10 MG/ML VIAL 2 ML 20 MG IVP (04:49)
[2025-09-12] MEDS: MORPHINE SULF INJ 4 MG/ML VIAL 0.5 MG IVP (04:50)
[2025-09-12 05:11] LABS: Lactate (Lactic Acid) 3.0 mMol/L (0.4-2.0)
[2025-09-12 05:12] LABS: Base Excess, Venous -6 (-3-3); O2 Saturation, Venous 56 % (96-97); PCO2, Venous 28 mmHg (36-56); PO2, Venous 31 mmHg (15-58); pH, Venous 7.41 (7.33-7.66)
[2025-09-12 05:20] LABS: Collection Type, Urine Clean Catch
[2025-09-12 05:26] LABS: Basophils # (Auto) 0.0 Thou/mm3 (0.0-0.2); Basophils % (Auto) 0 % (0-2.5); Eosinophils # (Auto) 0.0 Thou/mm3 (0.0-0.5); Eosinophils % (Auto) 0 % (0-10); Hematocrit 32.1 % (36.0-46.0); Hemoglobin 10.7 g/dL (12.0-16.0); Immature Granulocytes Auto 0.06 Thou/mm3 (0.00-0.00); Lymphocytes # (Auto) 2.3 Thou/mm3 (1.0-4.8); Lymphocytes % (Auto) 14 % (10-50); Mean Corpuscular HGB Conc 33.3 g/dl (31.0-37.0); Mean Corpuscular Hemoglobin 30.0 pg (25.0-35.0); Mean Corpuscular Volume 90 fL (80-100); Monocytes # (Auto) 1.2 Thou/mm3 (0.0-0.8); Monocytes % (Auto) 8 % (0-12); Neutrophils # (Auto) 12.5 Thou/mm3 (1.8-7.7); Neutrophils % (Auto) 78 % (37-80); Nucleated Red Blood Cell # 0.00 Thou/mm3 (0.00-0.00); Nucleated Red Blood Cell % 0 /100 WBC (0); Platelet Count 306 Thou/mm3 (140-440); RDW Standard Deviation 44.1 fL (36.4-46.3); Red Blood Count 3.57 Miln/mm3 (4.00-5.20); White Blood Count 16.1 Thou/mm3 (3.6-11.0)
[2025-09-12 05:33] LABS: Bacteria,Urine Rare; Bilirubin,Urine Negative (Negative); Blood,Urine Negative (Negative); Clarity,Urine Clear (Clear/Hazy); Color,Urine Yellow (Lt Yel-Yel); Glucose, Urine 3+ (Negative); Hyaline Casts,Urine 1 /hpf (0-1); Ketones,Urine 2+ (Negative); Leukocyte Esterase,Urine Positive (Negative); Nitrite,Urine Negative (Negative); PH,Urine 6.0 (5.0-7.0); Protein,Urine 1+ (Neg - Trace); RBC,Urine 3 /hpf (0-3); Specific Gravity,Urine 1.027 (1.001-1.035); Squamous Epithelial Cell,Urine 22 /hpf (0-5); Urobilinogen,Urine Negative mg/dL (0.0-1.0); WBC,Urine 24 /hpf (0-5)
[2025-09-12] MEDS: INSULIN LISPRO (AdmeLOG) 1 UNIT/0.01 ML UNIT SC ×2 (05:37→10:07)
[2025-09-12] MEDS: RINGERS LACTATED 500 ML 500 ML 999 ML IV (05:37)
[2025-09-12] MEDS: INSULIN LISPRO (AdmeLOG) 1 UNIT/0.01 ML UNIT 3 UNIT SC (05:38)
[2025-09-12 05:47] LABS: Alanine Aminotransferase 54 U/L (10-49); Albumin, Serum 3.7 gm/dL (3.4-4.8); Albumin/Globulin Ratio 1.9 (1.2-2.2); Alkaline Phosphatase 98 U/L (46-116); Anion Gap 12 (7-16); Aspartate Amino Transferase 114 U/L (0-34); BUN/Creatinine Ratio 26 Ratio (12-20); Bilirubin,Total 0.6 mg/dL (0.3-1.2); Blood Urea Nitrogen 23 mg/dL (9-23); Calcium 8.5 mg/dL (8.3-10.6); Calcium (Corrected) 8.7 mg/dL (8.5-10.1); Carbon Dioxide 17.7 mMol/L (20.0-31.0); Chloride 109 mMol/L (98-107); Creatinine (Component) 0.9 mg/dL (0.6-1.3); Estimated Creatinine Clearance 44.8 mL/min (>60); Globulin 2.0 gm/dL (2.3-3.5); Glucose 291 mg/dL (74-106); Magnesium 2.5 mg/dL (1.6-2.6); Osmolality,Calculated 292 (275-295); Phosphorous 3.1 mg/dL (2.4-5.1); Potassium 3.6 mMol/L (3.4-5.1); Sodium 139 mMol/L (136-145); Total Protein 5.7 gm/dL (5.7-8.2); eGFR > 60 See Note
[2025-09-12 07:28] LABS: Partial Thromboplastin Time 43.1 Seconds (22.0-36.0)
--- NOTE | 2025-09-12 07:55 | ESOP_ITS ---
Cardiac Cath Procedure Procedure Narrative Procedure date 09/12/2024 Title of the procedure 1.left heart catheterization 2.left coronary angiogram 3.right coronary angiogram 4.left ventriculogram 5.conscious sedation and radiographic interpretation supervision 6.aspiration thrombectomy of the proximal LAD 7.angioplasty and stent placement of the proximal LAD 8.intra-aortic balloon pump placement 9.temporary pacemaker placement Indication for the procedure 65-year-old female with diabetes hypertension Patient was admitted with nonspecific symptoms Subsequently she also complains of chest pain, EKG showing ST elevations anterolaterally with already formed Q wave peak troponin was More than more than 60 Patient also developed complete heart block and asystole Therefore cardiac cath and cor angiogram and temporary pacemaker was placed Procedure This is done in the cardiac lab under concern electrocardiographic monitoring in termittent blood pressure monitoring We decided to proceed with temporary pacemaker placement Right femoral venous access obtained using modified Seldinger technique Temporary pacemaker wire was threaded along the right femoral vein and placed in the right ventricle Set rate 100 threshold 0.5 output 5 V After the temporary pacemaker placement we proceeded to do right femoral arterial access Subsequently JL 4 catheter used for selective renal left coronary artery JR4 catheter used for selective right coronary artery Pigtail catheter used for left ventriculogram Findings Hemodynamics Overall left ventricular systolic function is severely reduced Approximate ejection fraction 20% End-diastolic pressure was 20 mmHg There is no gradient across the aortic valve Coronary anatomy 1.left Main coronary artery appears normal 2.left anterior descending artery is 100% occluded proximally 3.the diagonal artery shows luminal irregularities 4.circumflex has about 20% plaquing noted in the midsegment 5.obtuse marginal has luminal irregularities 6.right coronary artery shows luminal regularities in the midsegment 7.posterior descending artery has minor luminal irregularities Conclusion Occluded proximal LAD We will proceed with intervention Aspiration thrombectomy of the proximal RCA Angioplasty and stent placement to the proximal RCA CLS 3.5 guiding catheter used to obtain coaxial access A And P Mechanic 50 wire was used to cross the lesion Multiple aspiration thrombectomy runs was done Following that predilatation was done with 2.5 x 20 mm balloon up to 8 kyleigh Following that 3 x 26 mm stent was placed across the lesion and dilated up to 11 kyleigh Following that 3.5 x 20 mm noncompliant balloon was dilated up to 12 kyleigh Post an angiogram reveals adequate expansion of the entire length of the stents Intra-aortic balloon pump placement Patient continues to be somewhat hypotensive in cardiogenic shock Therefore we decided to proceed with intra-aortic balloon pump placement 6 Panamanian sheath was exchanged for intra-aortic balloon pump sheath Intra-aortic balloon pump was placed in the region of the descending aorta under fluoroscopic guidance One-to-one pulsation was initiated Augmented pressure was 100/40 Conclusion Successful angioplasty and stent placement of the proximal LAD
[2025-09-12 08:14] LABS: Reflex Lactate? Y
[2025-09-12] MEDS: Heparin/D5w 25K 250 ML Ivpb 25,000 UNIT/250 ML BAG 2.754 UNIT IV (08:16)
[2025-09-12] MEDS: EPTIFIBATIDE IVPB 75 MG/100 ML VIAL 7.344 MG IV (08:16)
[2025-09-12] MEDS: Norepinephrine/D5W 8mg/250ml 8 MG/250 ML BAG 12.909 MG IV (08:16)
[2025-09-12] MEDS: SODIUM CHLORIDE 0.45 % 500 ML 100 ML IV (08:16)
--- NOTE | 2025-09-12 08:20 | PC.NURSE ---
hand off report given to Laly augustine. patient transferred back to room via gurney accompanied with balloon pump and temporary pacemaker. patient alert and oriented gcs of 15. site is soft flat, nontender and no signs of hematoma. site assessed by Laly augustine and I as well as with chago augustine.
[2025-09-12 09:59] LABS: Lactate (Lactic Acid) 5.0 mMol/L (0.4-2.0)
--- NOTE | 2025-09-12 10:00 | XR_ITS ---
EXAMINATION: AP chest single view TECHNIQUE: AP portable semiupright chest single view Date and time: September 12, 2025, 1051 hours, comparison September 11, 2025 INDICATIONS: Difficulty breathing this week. FINDINGS: Worsening bilateral lung opacity No major cardiac enlargement There is vascular congestion Prominent osteopenia IMPRESSION: Severe bilateral pneumonia Consider mild associated heart failure
[2025-09-12] MEDS: CLOPIDOGREL BISULFATE 75 MG TABLET 300 MG PO (10:02)
[2025-09-12] MEDS: INSULIN DEGLUDEC 5 UNIT/0.05 ML (PER 5 UNITS) 10 UNIT SC (10:05)
[2025-09-12 10:10] LABS: Beta Hydroxybutyrate 1.0 mmol/L (<0.6)
--- NOTE | 2025-09-12 10:29 | ESPR_ITS ---
Documentation for date of: 09/12/25 Subjective Subjective Interval history: This is a 65yo F who presented yesterday for arthroplasty and a rapid was called for hyperlgycemia. Pt was admitted for mild DKA and then found to have a STEMI. Cardiology was consulted and felt to have a STEMI that was >12hrs old. She was noted to have bradycardia with initially intermittent 3rd degree block and then progressed to complete 3rd degree block. Overnight she was briefly transcutaneously paced and then went to laboratory technologist at 6am. There she underwent thrombectomy and transvenous pacemaker placement along with an IABP and was returned to the ICU. She is currently on heparin gtt and an integrilin gtt. She is awake and alert and admits to experiencing some chest pain yesterday and the day before that radiated to her back however she thought it was due to housework. She notes some SOB currently though for the most part states she feels well. Critical Care Note Critical care time (min.): 65 Exam Vital Signs Temp Pulse Resp BP Pulse Ox O2 Del Method O2 Flow Rate 98.1 F 100 27 H 116/67 96 Nasal Cannula 3 09/12/25 09:00 09/12/25 09:30 09/12/25 09:30 09/12/25 09:30 09/12/25 09:30 09/12/25 08:25 09/12/25 08:25 FiO2 2 09/12/25 04:16 Narrative Exam Gen- NAD, AAOx4, nl body habitus HEENT- NC/AT, mucosa hydrated, sclera anicteric, PERRL, EOMI Chest- diffuse wheezing throughout, no crackles heard at this time, HRRR, murmur heard, no increase in WOB Abd- s/nt/bs+ Ext- no edema, radial pulse palp, difficult to palp pedal pulse, lines in R groin, no focal deficits, Drips heparin integrilin levo Lines R IABP 1:1 R Transvenous pacer Physical Exam Completion Physical Exam Complete?: Yes Objective - [employer] Labs 09/13/25 05:35 09/13/25 05:35 Labs: Laboratory Results - last 24 hr 09/11/25 09/11/25 09/11/25 10:20 11:35 13:20 WBC 11.7 H RBC 3.65 L Hgb 10.8 L Hct 32.8 L MCV 90 MCH 29.6 MCHC 32.9 RDW Std Deviation 44.1 Plt Count 270 D Neut % (Auto) 89 H Lymph % (Auto) 10 Butts % (Auto) 1 Eos % (Auto) 0 Baso % (Auto) 0 Neut # (Auto) 10.4 H Lymph # (Auto) 1.1 Butts # (Auto) 0.1 Eos # (Auto) 0.0 Baso # (Auto) 0.0 Immature Gran # (Auto) 0.05 H Absolute Nucleated RBC 0.00 Immature Gran % 0 Nucleated RBC % 0 PT INR APTT Puncture Site ABG pH ABG pCO2 ABG pO2 ABG HCO3 ABG O2 Saturation ABG Base Excess VBG pH 7.39 VBG pCO2 31 L VBG pO2 25 VBG O2 Sat (Nicolasa) 41 L VBG Base Excess -5 L Oxygen Liter Flow Sodium 138 Potassium 4.2 Chloride 104 Carbon Dioxide 14.7 L* Anion Gap 19 H BUN 23 Creatinine 1.3 Estim Creat Clear Calc Not Performed. eGFR 46 L BUN/Creatinine Ratio 18 Glucose 492 H* Estimated Ave Glu mg/dL 192 H Hemoglobin A1c 8.3 H Calculated Osmolality 301 H Lactic Acid 4.4 H* Calcium 9.4 Corrected Calcium 9.4 Phosphorus 3.8 Magnesium Total Bilirubin AST ALT Alkaline Phosphatase Troponin I Total Protein Albumin 4.2 D Globulin Albumin/Globulin Ratio Beta-Hydroxybutyrate/Acetoacetate 2.8 H Ur Collection Type Clean Catch Urine Color Lt-Yellow Urine Clarity Clear Urine pH 6.0 Ur Specific Whigham 1.029 Urine Protein Trace Urine Glucose (UA) 4+ A Urine Ketones 4+ A Urine Blood Negative Urine Nitrite Negative Urine Bilirubin Negative Urine Urobilinogen (Auto) Negative Ur Leukocyte Esterase Positive Urine RBC 1 Urine WBC 6 H Ur Squamous Epith Cells 2 Urine Bacteria None Hyaline Casts < 1 Ur Culture Indicated? Not Indicated 09/11/25 09/11/25 09/11/25 13:30 14:50 16:18 WBC RBC Hgb Hct MCV MCH MCHC RDW Std Deviation Plt Count Neut % (Auto) Lymph % (Auto) Butts % (Auto) Eos % (Auto) Baso % (Auto) Neut # (Auto) Lymph # (Auto) Butts # (Auto) Eos # (Auto) Baso # (Auto) Immature Gran # (Auto) Absolute Nucleated RBC Immature Gran % Nucleated RBC % PT 11.1 INR 1.0 APTT 23.6 Puncture Site ABG pH ABG pCO2 ABG pO2 ABG HCO3 ABG O2 Saturation ABG Base Excess VBG pH 7.50 VBG pCO2 21 L D VBG pO2 55 D VBG O2 Sat (Nicolasa) 94 L VBG Base Excess -5 L Oxygen Liter Flow Sodium 140 140 Potassium 3.5 D 3.9 Chloride 108 H 107 Carbon Dioxide 16.6 L 18.3 L Anion Gap 15 15 BUN 21 23 Creatinine 1.1 1.0 Estim Creat Clear Calc Not Performed. Not Performed. eGFR 56 L > 60 BUN/Creatinine Ratio 19 23 H Glucose 249 H D [address] Glu mg/dL Hemoglobin A1c Calculated Osmolality 290 292 Lactic Acid 3.5 H 4.4 H* Calcium 9.4 9.1 Corrected Calcium 9.4 9.2 Phosphorus 2.5 2.3 L Magnesium 1.8 Total Bilirubin AST ALT Alkaline Phosphatase Troponin I 74.180 H* Total Protein Albumin 4.1 3.9 Globulin Albumin/Globulin Ratio Beta-Hydroxybutyrate/Acetoacetate Ur Collection Type Urine Color Urine Clarity Urine pH Ur Specific [place] Urine Protein Urine Glucose (UA) Urine Ketones Urine Blood Urine Nitrite Urine Bilirubin Urine Urobilinogen (Auto) Ur Leukocyte Esterase Urine RBC Urine WBC Ur Squamous Epith Cells Urine Bacteria Hyaline Casts Ur Culture Indicated? 09/11/25 09/11/25 09/11/25 18:09 18:21 19:56 WBC RBC Hgb Hct MCV MCH MCHC RDW Std Deviation Plt Count Neut % (Auto) Lymph % (Auto) Butts % (Auto) Eos % (Auto) Baso % (Auto) Neut # (Auto) Lymph # (Auto) Butts # (Auto) Eos # (Auto) Baso # (Auto) Immature Gran # (Auto) Absolute Nucleated RBC Immature Gran % Nucleated RBC % PT INR APTT Puncture Site Right Radial ABG pH 7.52 H ABG pCO2 22 L ABG pO2 60 L ABG HCO3 18 L ABG O2 Saturation 94 ABG Base Excess -4 L VBG pH 7.45 VBG pCO2 26 L VBG pO2 35 D VBG O2 Sat (Nicolasa) 70 L VBG Base Excess -5 L Oxygen Liter Flow 2 Sodium 138 Potassium 4.0 Chloride 107 Carbon Dioxide 18.3 L Anion Gap 13 BUN 24 H Creatinine 1.1 Estim Creat Clear Calc 36.6 L eGFR 56 L BUN/Creatinine Ratio 22 H Glucose [address] Glu mg/dL Hemoglobin A1c Calculated Osmolality 288 Lactic Acid 3.9 H Calcium 9.5 Corrected Calcium 9.7 Phosphorus 2.1 L Magnesium 1.7 Total Bilirubin AST ALT Alkaline Phosphatase Troponin I 68.246 H* D Total Protein Albumin 3.8 Globulin Albumin/Globulin Ratio Beta-Hydroxybutyrate/Acetoacetate Ur Collection Type Urine Color Urine Clarity Urine pH Ur Specific [place] Urine Protein Urine Glucose (UA) Urine Ketones Urine Blood Urine Nitrite Urine Bilirubin Urine Urobilinogen (Auto) Ur Leukocyte Esterase Urine RBC Urine WBC Ur Squamous Epith Cells Urine Bacteria Hyaline Casts Ur Culture Indicated? 09/11/25 09/11/25 09/12/25 20:46 22:29 00:16 WBC RBC Hgb Hct MCV MCH MCHC RDW Std Deviation Plt Count Neut % (Auto) Lymph % (Auto) Butts % (Auto) Eos % (Auto) Baso % (Auto) Neut # (Auto) Lymph # (Auto) Butts # (Auto) Eos # (Auto) Baso # (Auto) Immature Gran # (Auto) Absolute Nucleated RBC Immature Gran % Nucleated RBC % PT INR APTT 38.9 H D Puncture Site ABG pH ABG pCO2 ABG pO2 ABG HCO3 ABG O2 Saturation ABG Base Excess VBG pH 7.40 VBG pCO2 33 L VBG pO2 27 VBG O2 Sat (Nicolasa) 47 L VBG Base Excess -4 L Oxygen Liter Flow Sodium 139 140 Potassium 5.4 H D 4.1 D Chloride 107 109 H Carbon Dioxide 19.5 L 20.3 Anion Gap 13 11 BUN 29 H 22 Creatinine 1.0 0.9 Estim Creat Clear Calc 40.3 L 44.8 L eGFR > 60 > 60 BUN/Creatinine Ratio 29 H 24 H Glucose [address] H [address] Glu mg/dL Hemoglobin A1c Calculated Osmolality 293 287 Lactic Acid 2.2 H Calcium 8.6 8.7 Corrected Calcium 8.8 8.9 Phosphorus 5.4 H 3.5 Magnesium 3.7 H Total Bilirubin AST ALT Alkaline Phosphatase Troponin I 72.166 H* D Total Protein Albumin 3.7 3.8 Globulin Albumin/Globulin Ratio Beta-Hydroxybutyrate/Acetoacetate Ur Collection Type Urine Color Urine Clarity Urine pH Ur Specific [place] Urine Protein Urine Glucose (UA) Urine Ketones Urine Blood Urine Nitrite Urine Bilirubin Urine Urobilinogen (Auto) Ur Leukocyte Esterase Urine RBC Urine WBC Ur Squamous Epith Cells Urine Bacteria Hyaline Casts Ur Culture Indicated? 09/12/25 09/12/25 09/12/25 04:30 04:45 04:48 WBC 16.1 H RBC 3.57 L Hgb 10.7 L Hct 32.1 L MCV 90 MCH 30.0 MCHC 33.3 RDW Std Deviation 44.1 Plt Count 306 D Neut % (Auto) 78 Lymph % (Auto) 14 Butts % (Auto) 8 Eos % (Auto) 0 Baso % (Auto) 0 Neut # (Auto) 12.5 H Lymph # (Auto) 2.3 Butts # (Auto) 1.2 H Eos # (Auto) 0.0 Baso # (Auto) 0.0 Immature Gran # (Auto) 0.06 H Absolute Nucleated RBC 0.00 Immature Gran % 0 Nucleated RBC % 0 PT INR APTT 43.1 H Puncture Site ABG pH ABG pCO2 ABG pO2 ABG HCO3 ABG O2 Saturation ABG Base Excess VBG pH 7.41 VBG pCO2 28 L VBG pO2 31 VBG O2 Sat (Nicolasa) 56 L VBG Base Excess -6 L Oxygen Liter Flow Sodium 139 Potassium 3.6 D Chloride 109 H Carbon Dioxide 17.7 L Anion Gap 12 BUN 23 Creatinine 0.9 Estim Creat Clear Calc 44.8 L eGFR > 60 BUN/Creatinine Ratio 26 H Glucose [address] Glu mg/dL Hemoglobin A1c Calculated Osmolality 292 Lactic Acid 3.0 H Calcium 8.5 Corrected Calcium 8.7 Phosphorus 3.1 Magnesium 2.5 Total Bilirubin 0.6 AST 114 H ALT 54 H Alkaline Phosphatase 98 Troponin I 47.874 H* D Total Protein 5.7 Albumin 3.7 Globulin 2.0 L Albumin/Globulin Ratio 1.9 Beta-Hydroxybutyrate/Acetoacetate Ur Collection Type Clean Catch Urine Color Yellow Urine Clarity Clear Urine pH 6.0 Ur Specific Whigham 1.027 Urine Protein 1+ A Urine Glucose (UA) 3+ A Urine Ketones 2+ A Urine Blood Negative Urine Nitrite Negative Urine Bilirubin Negative Urine Urobilinogen (Auto) Negative Ur Leukocyte Esterase Positive Urine RBC 3 Urine WBC 24 H Ur Squamous Epith Cells 22 H Urine Bacteria Rare Hyaline Casts 1 Ur Culture Indicated? 09/12/25 09:22 WBC RBC Hgb Hct MCV MCH MCHC RDW Std Deviation Plt Count Neut % (Auto) Lymph % (Auto) Butts % (Auto) Eos % (Auto) Baso % (Auto) Neut # (Auto) Lymph # (Auto) Butts # (Auto) Eos # (Auto) Baso # (Auto) Immature Gran # (Auto) Absolute Nucleated RBC Immature Gran % Nucleated RBC % PT INR APTT Puncture Site ABG pH ABG pCO2 ABG pO2 ABG HCO3 ABG O2 Saturation ABG Base Excess VBG pH VBG pCO2 VBG pO2 VBG O2 Sat (Nicolasa) VBG Base Excess Oxygen Liter Flow Sodium Potassium Chloride Carbon Dioxide Anion Gap BUN Creatinine Estim Creat Clear Calc eGFR BUN/Creatinine Ratio Glucose Estimated Ave Glu mg/dL Hemoglobin A1c Calculated Osmolality Lactic Acid 5.0 H* Calcium Corrected Calcium Phosphorus Magnesium Total Bilirubin AST ALT Alkaline Phosphatase Troponin I Total Protein Albumin Globulin Albumin/Globulin Ratio Beta-Hydroxybutyrate/Acetoacetate 1.0 H Ur Collection Type Urine Color Urine Clarity Urine pH Ur Specific [place] Urine Protein Urine Glucose (UA) Urine Ketones Urine Blood Urine Nitrite Urine Bilirubin Urine Urobilinogen (Auto) Ur Leukocyte Esterase Urine RBC Urine WBC Ur Squamous Epith Cells Urine Bacteria Hyaline Casts Ur Culture Indicated? 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 ST elevations noted in V1-V4 and pt went for cath this morning. She is s/p thrombectomy and angioplasty with stent placement. EF of 20% reported. on IABP for CO support and afterload reduction, on levophed, LA trended up to 5 this AM, will give lasix for overload, holding on dobutamine at this time, pt with good hemodynamics currently. formal echo still pending. HFrEF- prelim notes EF of 20%, will need BB and poss entresto once her acute shock has resolved - cardiology following - started on lasix today - may need spirinolactone later as well 3rd Degree AV block- s/p transvenous pacer placement - cards to eval need for PPM Resp Pulmonary edema- pt to receive lasix, goal UOP >1.5lt today. doing well on NC at this time - if develops WOB will start bipap Renal Acidosis- pt has an ongoing drop in HCO3 , check an ABG - LA is 5 and slight elevation in beta hydroxy GI NPO for now Transaminitis- likely due to heart failure - wnl on arrival Endo DKA- mild, on FS q3hr with SSI and lantus, avoid additional fluids at this time given her current pulmonary edema Heme Leukocytosis- likely reactive in nature Anemia- POA and near baseline - monitor as pt is on Anti PLT and AC ID stable case d/w ICU team, cards labs, imaging, records reviewed ~65ccmin required for eval, exam, review, intervention, discussion and formulation of POC for this critically ill pt with cardiogenic shock Provider Notation Provider Notation: Although this document has been carefully reviewed, there may still be some phonetic and other typographical errors. These errors are purely grammatical due to imperfections in the software program and should not be construed in any way to compromise the substance of the patient's medical care during this visit. Thank you for the opportunity and privilege in assisting you with this patient's care and management.
[2025-09-12 11:00] LABS: Alanine Aminotransferase 218 U/L (10-49); Albumin, Serum 3.7 gm/dL (3.4-4.8); Albumin/Globulin Ratio 1.8 (1.2-2.2); Alkaline Phosphatase 123 U/L (46-116); Anion Gap 15 (7-16); Aspartate Amino Transferase 302 U/L (0-34); BUN/Creatinine Ratio 26 Ratio (12-20); Bilirubin,Total 0.6 mg/dL (0.3-1.2); Blood Urea Nitrogen 26 mg/dL (9-23); Calcium 8.5 mg/dL (8.3-10.6); Calcium (Corrected) 8.7 mg/dL (8.5-10.1); Chloride 107 mMol/L (98-107); Creatinine (Component) 1.0 mg/dL (0.6-1.3); Estimated Creatinine Clearance 40.3 mL/min (>60); Globulin 2.1 gm/dL (2.3-3.5); Glucose 278 mg/dL (74-106); Osmolality,Calculated 288 (275-295); Potassium 4.3 mMol/L (3.4-5.1); Sodium 137 mMol/L (136-145); Total Protein 5.8 gm/dL (5.7-8.2); eGFR > 60 See Note
[2025-09-12 11:04] LABS: Carbon Dioxide 14.7 mMol/L (20.0-31.0)
[2025-09-12] MEDS: FUROSEMIDE INJ 10 MG/ML 4ML VIAL 40 MG IVP ×2 (11:13→16:19)
[2025-09-12] MEDS: INSULIN DEGLUDEC 5 UNIT/0.05 ML (PER 5 UNITS) SC (11:14)
[2025-09-12 11:26] LABS: Base Excess, Venous -9 (-3-3); Lactate (Lactic Acid) 3.7 mMol/L (0.4-2.0); O2 Saturation, Venous 86 % (96-97); PCO2, Venous 32 mmHg (36-56); PO2, Venous 57 mmHg (15-58); pH, Venous 7.32 (7.33-7.66)
--- NOTE | 2025-09-12 11:29 | EKG_ITS ---
[facility] Test Date: 2025-09-12 Pat Name: DONALD HENDERSON [facility] [employer]: COTY : [id number] Requested By: Ophelia Hansen Order Number: [id number] Reading MD: Ophelia Hansen Measurements Intervals [place] Rate: 100 P: MS: QRS: 217 QRSD: 149 T: 61 QT: 408 QTc: 526 Interpretive Statements ELECTRONIC VENTRICULAR PACEMAKER MARKED ST ELEVATION, CONSIDER ANTERIOR INJURY ACUTE FL Compared to ECG 09/11/2025 15:20:16 Sinus rhythm no longer present Left-axis deviation no longer present ST (T wave) deviation still present Myocardial infarct finding still present /[id number]/[id number]
[2025-09-12 11:33] LABS: Basophils # (Auto) 0.0 Thou/mm3 (0.0-0.2); Basophils % (Auto) 0 % (0-2.5); Eosinophils # (Auto) 0.0 Thou/mm3 (0.0-0.5); Eosinophils % (Auto) 0 % (0-10); Hematocrit 33.8 % (36.0-46.0); Hemoglobin 11.2 g/dL (12.0-16.0); Immature Granulocytes Auto 0.08 Thou/mm3 (0.00-0.00); Lymphocytes # (Auto) 1.5 Thou/mm3 (1.0-4.8); Lymphocytes % (Auto) 10 % (10-50); Mean Corpuscular HGB Conc 33.1 g/dl (31.0-37.0); Mean Corpuscular Hemoglobin 30.0 pg (25.0-35.0); Mean Corpuscular Volume 91 fL (80-100); Monocytes # (Auto) 1.2 Thou/mm3 (0.0-0.8); Monocytes % (Auto) 8 % (0-12); Neutrophils # (Auto) 12.4 Thou/mm3 (1.8-7.7); Neutrophils % (Auto) 82 % (37-80); Nucleated Red Blood Cell # 0.00 Thou/mm3 (0.00-0.00); Nucleated Red Blood Cell % 0 /100 WBC (0); Platelet Count 281 Thou/mm3 (140-440); RDW Standard Deviation 45.3 fL (36.4-46.3); Red Blood Count 3.73 Miln/mm3 (4.00-5.20); White Blood Count 15.2 Thou/mm3 (3.6-11.0)
[2025-09-12] MEDS: POTASSIUM CHL 10 mEq IVPB 10 MEQ/100 ML BAG 100 MEQ IV ×2 (11:33→12:36)
[2025-09-12 11:45] LABS: Base Excess -6 (-3-3); HCO3 17 mEq/L (20-26); Inspired O2, VO2 Liters 4 L/min; O2 Saturation 95 % (91-98); PCO2 25 mmHg (32.0-48.0); PO2 71 mmHg (83-108); pH, Arterial 7.44 (7.35-7.45)
[2025-09-12 11:48] LABS: Allen Test Performed/OK; Puncture Site Left Radial
[2025-09-12 12:12] LABS: Alanine Aminotransferase 219 U/L (10-49); Albumin, Serum 3.7 gm/dL (3.4-4.8); Albumin/Globulin Ratio 1.8 (1.2-2.2); Alkaline Phosphatase 121 U/L (46-116); Anion Gap 13 (7-16); Aspartate Amino Transferase 313 U/L (0-34); BUN/Creatinine Ratio 22 Ratio (12-20); Bilirubin,Total 0.5 mg/dL (0.3-1.2); Blood Urea Nitrogen 22 mg/dL (9-23); Calcium 8.2 mg/dL (8.3-10.6); Calcium (Corrected) 8.4 mg/dL (8.5-10.1); Carbon Dioxide 15.1 mMol/L (20.0-31.0); Chloride 107 mMol/L (98-107); Creatinine (Component) 1.0 mg/dL (0.6-1.3); Estimated Creatinine Clearance 40.3 mL/min (>60); Globulin 2.1 gm/dL (2.3-3.5); Glucose 266 mg/dL (74-106); Osmolality,Calculated 282 (275-295); Potassium 4.3 mMol/L (3.4-5.1); Sodium 135 mMol/L (136-145); Total Protein 5.8 gm/dL (5.7-8.2); eGFR > 60 See Note
[2025-09-12 12:37] LABS: Creatine Kinase 1001 U/L (34-171)
[2025-09-12 12:53] LABS: Reflex Lactate? Y
--- NOTE | 2025-09-12 12:55 | PD.RESPRO ---
Documentation for date of: 09/12/25 Subjective Subjective Interval history: 09/12/2025, patient underwent, angioplasty and stent placement to the LAD was placed, she was also placed on intra-aortic balloon pump and norepinephrine as the patient was noticed to have cardiogenic shock. Her ejection fraction was 20% on angiography. Questioning after the procedure patient reported that she used to have mild epigastric discomfort and back pain started on Tuesday but she thought it was because of her doing chores on that day. On auscultation patient was found to have wheezing bilaterally more on the left side, and she was also tachypneic. Chest x-ray before angiograph showed reticular infiltrate most likely pulmonary edema. Repeat chest x-ray after the procedure showed worsening pulmonary edema more on the right side. Her labs showed uptrending WBC to 16.1 from 11.7 most likely stress related, hemoglobin stable at 10.7, her APTT within normal range 38.9, repeat ABG after she came from the [employer] [facility] showed pH of 744, CO2 was low for 25, pO2 71, HCO 3 was 17, O2 saturation was 95. Her chemistry showed potassium level was 3.6, carbon oxide of 70.7, serum creatinine 0.9, BUN 23, blood glucose was 291, lactic acid increased from 3.0-5.0 after the cath. Her troponin initially down trended from 74-47.874 however it up trended after the procedure to 118.724. No new chest pain. Creatinine kinase 1001, beta-hydroxybutyrate repeat was 1.0. Repeat EKG showed paced rhythm with heart rate of 100 that was present by the coke crusher operator Dr. Lyles, ST segment elevation still present with no arrhythmia. Exam Vital Signs Temp Pulse Resp BP Pulse Ox O2 Del Method O2 Flow Rate 98.1 F 100 35 H 113/69 97 Nasal Cannula 3 09/12/25 09:00 09/12/25 11:30 09/12/25 11:30 09/12/25 11:30 09/12/25 11:30 09/12/25 08:25 09/12/25 08:25 FiO2 2 09/12/25 04:16 Narrative Exam GEN: AOx3, Armenian speaker, looks uncomfortable, tachypneic able to speak full sentences HEENT: NC/AC, PERRLA, oral mucosa moist, neck supple CVS: RRR, S1-S2 present, no murmurs appreciated, No JVD, peripheral pulse detected by Doppler, however no cyanosis RESP: Wheezing bilaterally more on the left side GI: soft,non distended, non tender, NBS MSK: able to move all 4 limbs, no lower extremity edema SKIN: warm and dry RECREATIONAL AIDE: CN II-XII and Sensation grossly intact. Objective Labs 09/12/25 11:10 09/12/25 14:14 Labs: Laboratory Results - last 24 hr 09/11/25 09/11/25 09/11/25 13:20 13:30 14:50 WBC RBC Hgb Hct MCV MCH MCHC RDW Std Deviation Plt Count Neut % (Auto) Lymph % (Auto) [place] % (Auto) Eos % (Auto) Baso % (Auto) Neut # (Auto) Lymph # (Auto) [place] # (Auto) Eos # (Auto) Baso # (Auto) Immature Gran # (Auto) Absolute Nucleated RBC Immature Gran % Nucleated RBC % PT 11.1 INR 1.0 APTT 23.6 Puncture Site ABG pH ABG pCO2 ABG pO2 ABG HCO3 ABG O2 Saturation ABG Base Excess VBG pH 7.50 VBG pCO2 21 L D VBG pO2 55 D VBG O2 Sat (Nicolasa) 94 L VBG Base Excess -5 L Oxygen Liter Flow Sodium 140 140 Potassium 3.5 D 3.9 Chloride 108 H 107 Carbon Dioxide 16.6 L 18.3 L Anion Gap 15 15 BUN 21 23 Creatinine 1.1 1.0 Estim Creat Clear Calc Not Performed. Not Performed. eGFR 56 L > 60 BUN/Creatinine Ratio 19 23 H Glucose 249 H D 267 H Calculated Osmolality 290 292 Lactic Acid 3.5 H Calcium 9.4 9.1 Corrected Calcium 9.4 9.2 Phosphorus 2.5 2.3 L Magnesium 1.8 Total Bilirubin AST ALT Alkaline Phosphatase Total Creatine Kinase Troponin I 74.180 H* Total Protein Albumin 4.1 3.9 Globulin Albumin/Globulin Ratio Beta-Hydroxybutyrate/Acetoacetate Ur Collection Type Clean Catch Urine Color Lt-Yellow Urine Clarity Clear Urine pH 6.0 Ur Specific Gamaliel 1.029 Urine Protein Trace Urine Glucose (UA) 4+ A Urine Ketones 4+ A Urine Blood Negative Urine Nitrite Negative Urine Bilirubin Negative Urine Urobilinogen (Auto) Negative Ur Leukocyte Esterase Positive Urine RBC 1 Urine WBC 6 H Ur Squamous Epith Cells 2 Urine Bacteria None Hyaline Casts < 1 Ur Culture Indicated? Not Indicated 09/11/25 09/11/25 09/11/25 16:18 18:09 18:21 WBC RBC Hgb Hct MCV MCH MCHC RDW Std Deviation Plt Count Neut % (Auto) Lymph % (Auto) [place] % (Auto) Eos % (Auto) Baso % (Auto) Neut # (Auto) Lymph # (Auto) [place] # (Auto) Eos # (Auto) Baso # (Auto) Immature Gran # (Auto) Absolute Nucleated RBC Immature Gran % Nucleated RBC % PT INR APTT Puncture Site ABG pH ABG pCO2 ABG pO2 ABG HCO3 ABG O2 Saturation ABG Base Excess VBG pH 7.45 VBG pCO2 26 L VBG pO2 35 D VBG O2 Sat (Nicolasa) 70 L VBG Base Excess -5 L Oxygen Liter Flow Sodium 138 Potassium 4.0 Chloride 107 Carbon Dioxide 18.3 L Anion Gap 13 BUN 24 H Creatinine 1.1 Estim Creat Clear Calc 36.6 L eGFR 56 L BUN/Creatinine Ratio 22 H Glucose 266 H Calculated Osmolality 288 Lactic Acid 4.4 H* 3.9 H Calcium 9.5 Corrected Calcium 9.7 Phosphorus 2.1 L Magnesium 1.7 Total Bilirubin AST ALT Alkaline Phosphatase Total Creatine Kinase Troponin I 68.246 H* D Total Protein Albumin 3.8 Globulin Albumin/Globulin Ratio Beta-Hydroxybutyrate/Acetoacetate Ur Collection Type Urine Color Urine Clarity Urine pH Ur Specific Gamaliel Urine Protein Urine Glucose (UA) Urine Ketones Urine Blood Urine Nitrite Urine Bilirubin Urine Urobilinogen (Auto) Ur Leukocyte Esterase Urine RBC Urine WBC Ur Squamous Epith Cells Urine Bacteria Hyaline Casts Ur Culture Indicated? 09/11/25 09/11/25 09/11/25 19:56 20:46 22:29 WBC RBC Hgb Hct MCV MCH MCHC RDW Std Deviation Plt Count Neut % (Auto) Lymph % (Auto) [place] % (Auto) Eos % (Auto) Baso % (Auto) Neut # (Auto) Lymph # (Auto) [place] # (Auto) Eos # (Auto) Baso # (Auto) Immature Gran # (Auto) Absolute Nucleated RBC Immature Gran % Nucleated RBC % PT INR APTT 38.9 H D Puncture Site Right Radial ABG pH 7.52 H ABG pCO2 22 L ABG pO2 60 L ABG HCO3 18 L ABG O2 Saturation 94 ABG Base Excess -4 L VBG pH 7.40 VBG pCO2 33 L VBG pO2 27 VBG O2 Sat (Nicolasa) 47 L VBG Base Excess -4 L Oxygen Liter Flow 2 Sodium 139 Potassium 5.4 H D Chloride 107 Carbon Dioxide 19.5 L Anion Gap 13 BUN 29 H Creatinine 1.0 Estim Creat Clear Calc 40.3 L eGFR > 60 BUN/Creatinine Ratio 29 H Glucose 287 H Calculated Osmolality 293 Lactic Acid 2.2 H Calcium 8.6 Corrected Calcium 8.8 Phosphorus 5.4 H Magnesium 3.7 H Total Bilirubin AST ALT Alkaline Phosphatase Total Creatine Kinase Troponin I 72.166 H* D Total Protein Albumin 3.7 Globulin Albumin/Globulin Ratio Beta-Hydroxybutyrate/Acetoacetate Ur Collection Type Urine Color Urine Clarity Urine pH Ur Specific Gamaliel Urine Protein Urine Glucose (UA) Urine Ketones Urine Blood Urine Nitrite Urine Bilirubin Urine Urobilinogen (Auto) Ur Leukocyte Esterase Urine RBC Urine WBC Ur Squamous Epith Cells Urine Bacteria Hyaline Casts Ur Culture Indicated? 09/12/25 09/12/25 09/12/25 00:16 04:30 04:45 WBC 16.1 H RBC 3.57 L Hgb 10.7 L Hct 32.1 L MCV 90 MCH 30.0 MCHC 33.3 RDW Std Deviation 44.1 Plt Count 306 D Neut % (Auto) 78 Lymph % (Auto) 14 [place] % (Auto) 8 Eos % (Auto) 0 Baso % (Auto) 0 Neut # (Auto) 12.5 H Lymph # (Auto) 2.3 [place] # (Auto) 1.2 H Eos # (Auto) 0.0 Baso # (Auto) 0.0 Immature Gran # (Auto) 0.06 H Absolute Nucleated RBC 0.00 Immature Gran % 0 Nucleated RBC % 0 PT INR APTT 43.1 H Puncture Site ABG pH ABG pCO2 ABG pO2 ABG HCO3 ABG O2 Saturation ABG Base Excess VBG pH 7.41 VBG pCO2 28 L VBG pO2 31 VBG O2 Sat (Nicolasa) 56 L VBG Base Excess -6 L Oxygen Liter Flow Sodium 140 Potassium 4.1 D Chloride 109 H Carbon Dioxide 20.3 Anion Gap 11 BUN 22 Creatinine 0.9 Estim Creat Clear Calc 44.8 L eGFR > 60 BUN/Creatinine Ratio 24 H Glucose 195 H D Calculated Osmolality 287 Lactic Acid 3.0 H Calcium 8.7 Corrected Calcium 8.9 Phosphorus 3.5 Magnesium Total Bilirubin AST ALT Alkaline Phosphatase Total Creatine Kinase Troponin I Total Protein Albumin 3.8 Globulin Albumin/Globulin Ratio Beta-Hydroxybutyrate/Acetoacetate Ur Collection Type Clean Catch Urine Color Yellow Urine Clarity Clear Urine pH 6.0 Ur Specific Gamaliel 1.027 Urine Protein 1+ A Urine Glucose (UA) 3+ A Urine Ketones 2+ A Urine Blood Negative Urine Nitrite Negative Urine Bilirubin Negative Urine Urobilinogen (Auto) Negative Ur Leukocyte Esterase Positive Urine RBC 3 Urine WBC 24 H Ur Squamous Epith Cells 22 H Urine Bacteria Rare Hyaline Casts 1 Ur Culture Indicated? 09/12/25 09/12/25 09/12/25 04:48 09:22 11:10 WBC 15.2 H RBC 3.73 L Hgb 11.2 L Hct 33.8 L MCV 91 MCH 30.0 MCHC 33.1 RDW Std Deviation 45.3 Plt Count 281 Neut % (Auto) 82 H Lymph % (Auto) 10 [place] % (Auto) 8 Eos % (Auto) 0 Baso % (Auto) 0 Neut # (Auto) 12.4 H Lymph # (Auto) 1.5 [place] # (Auto) 1.2 H Eos # (Auto) 0.0 Baso # (Auto) 0.0 Immature Gran # (Auto) 0.08 H Absolute Nucleated RBC 0.00 Immature Gran % 1 H Nucleated RBC % 0 PT INR APTT Puncture Site ABG pH ABG pCO2 ABG pO2 ABG HCO3 ABG O2 Saturation ABG Base Excess VBG pH 7.32 L VBG pCO2 32 L VBG pO2 57 D VBG O2 Sat (Nicolasa) 86 L VBG Base Excess -9 L Oxygen Liter Flow Sodium 139 137 135 L Potassium 3.6 D 4.3 D 4.3 Chloride 109 H 107 107 Carbon Dioxide 17.7 L 14.7 L* 15.1 L Anion Gap 12 15 13 BUN 23 26 H 22 Creatinine 0.9 1.0 1.0 Estim Creat Clear Calc 44.8 L 40.3 L 40.3 L eGFR > 60 > 60 > 60 BUN/Creatinine Ratio 26 H 26 H 22 H Glucose 291 H D 278 H 266 H Calculated Osmolality 292 288 282 Lactic Acid 5.0 H* 3.7 H Calcium 8.5 8.5 8.2 L Corrected Calcium 8.7 8.7 8.4 L Phosphorus 3.1 Magnesium 2.5 Total Bilirubin 0.6 0.6 0.5 AST 114 H 302 H 313 H ALT 54 H 218 H 219 H Alkaline Phosphatase 98 123 H D 121 H Total Creatine Kinase 1001 H Troponin I 47.874 H* D 118.724 H* D Total Protein 5.7 5.8 5.8 Albumin 3.7 3.7 3.7 Globulin 2.0 L 2.1 L 2.1 L Albumin/Globulin Ratio 1.9 1.8 1.8 Beta-Hydroxybutyrate/Acetoacetate 1.0 H Ur Collection Type Urine Color Urine Clarity Urine pH Ur Specific Gamaliel Urine Protein Urine Glucose (UA) Urine Ketones Urine Blood Urine Nitrite Urine Bilirubin Urine Urobilinogen (Auto) Ur Leukocyte Esterase Urine RBC Urine WBC Ur Squamous Epith Cells Urine Bacteria Hyaline Casts Ur Culture Indicated? 09/12/25 11:27 WBC RBC Hgb Hct MCV MCH MCHC RDW Std Deviation Plt Count Neut % (Auto) Lymph % (Auto) [place] % (Auto) Eos % (Auto) Baso % (Auto) Neut # (Auto) Lymph # (Auto) [place] # (Auto) Eos # (Auto) Baso # (Auto) Immature Gran # (Auto) Absolute Nucleated RBC Immature Gran % Nucleated RBC % PT INR APTT Puncture Site Left Radial ABG pH 7.44 ABG pCO2 25 L ABG pO2 71 L ABG HCO3 17 L ABG O2 Saturation 95 ABG Base Excess -6 L VBG pH VBG pCO2 VBG pO2 VBG O2 Sat (Nicolasa) VBG Base Excess Oxygen Liter Flow 4 Sodium Potassium Chloride Carbon Dioxide Anion Gap BUN Creatinine Estim Creat Clear Calc eGFR BUN/Creatinine Ratio Glucose Calculated Osmolality Lactic Acid Calcium Corrected Calcium Phosphorus Magnesium Total Bilirubin AST ALT Alkaline Phosphatase Total Creatine Kinase Troponin I Total Protein Albumin Globulin Albumin/Globulin Ratio Beta-Hydroxybutyrate/Acetoacetate Ur Collection Type Urine Color Urine Clarity Urine pH Ur Specific Gamaliel Urine Protein Urine Glucose (UA) Urine Ketones Urine Blood Urine Nitrite Urine Bilirubin Urine Urobilinogen (Auto) Ur Leukocyte Esterase Urine RBC Urine WBC Ur Squamous Epith Cells Urine Bacteria Hyaline Casts Ur Culture Indicated? ABG Interpretation ABG results: 09/11/25 09/11/25 09/11/25 11:35 14:50 18:21 ABG pH ABG pCO2 ABG pO2 ABG HCO3 ABG O2 Saturation ABG Base Excess VBG pH 7.39 7.50 7.45 VBG pCO2 31 L 21 L D 26 L VBG pO2 25 55 D 35 D VBG Base Excess -5 L -5 L -5 L 09/11/25 09/11/25 09/12/25 19:56 22:29 04:45 ABG pH 7.52 H ABG pCO2 22 L ABG pO2 60 L ABG HCO3 18 L ABG O2 Saturation 94 ABG Base Excess -4 L VBG pH 7.40 7.41 VBG pCO2 33 L 28 L VBG pO2 27 31 VBG Base Excess -4 L -6 L 09/12/25 09/12/25 11:10 11:27 ABG pH 7.44 ABG pCO2 25 L ABG pO2 71 L ABG HCO3 17 L ABG O2 Saturation 95 ABG Base Excess -6 L VBG pH 7.32 L VBG pCO2 32 L VBG pO2 57 D VBG Base Excess -9 L Quality Measures Quality Measures none Advance care planning discussed with:: patient Assessment & Plan Assessment Current Active Medications: Generic Name Dose Route Start Last Admin Trade Name Freq PRN Reason Stop Dose Admin Acetaminophen 650 mg 09/11/25 14:15 Acetaminophen 325 Mg Tablet PO 10/11/25 14:14 Q6H PRN fever >100 or pain 1-3/10 Hydrocodone Bitart/Acetaminophen 1 tab 09/11/25 14:39 Hydrocodone/Apap 5/325 Tablet PO 09/16/25 14:19 Q4HR PRN PAIN SCALE 4-10(Mod-Sev Atorvastatin Calcium 80 mg 09/11/25 21:00 09/11/25 21:57 Atorvastatin Calcium 20 Mg Tablet PO 10/11/25 20:59 80 mg HS NATALIE Administration Dextrose 25 ml 09/11/25 14:39 Dextrose 50%-Water Inj 50 Ml Syringe IV 10/11/25 14:38 Q15MIN PRN BG 50-70 responsive npo pt Dextrose 50 ml 09/11/25 14:39 Dextrose 50%-Water Inj 50 Ml Syringe IV 10/11/25 14:38 Q15MIN PRN BG <50 OR BG <70 & pt unresponsive Glucagon 1 mg 09/11/25 14:39 Glucagon Inj 1 Mg Vial IM Q15MIN PRN BG <70, and no IV access Dopamine HCl/Dextrose 400 mg in 250 mls @ 8.675 mls/hr 09/11/25 20:50 09/11/25 22:00 Intropin In D5w Ivpb IV 10/11/25 20:49 Not Given .Q24H NATALIE Protocol 5 MCG/KG/MIN Heparin Sodium/Dextrose 25,000 unit in 250 mls @ 2.754 mls/hr 09/12/25 08:16 09/12/25 08:16 Heparin In D5w Ivpb IV 09/26/25 08:15 6 units/kg/hr .Q24H NATALIE 2.754 mls/hr Protocol Administration 6 UNITS/KG/HR Norepinephrine/Dextrose 8 mg in 250 mls @ 12.909 mls/hr 09/12/25 08:15 09/12/25 08:16 Levophed In D5w 8mg/250ml IV 10/12/25 08:14 0.15 mcg/kg/min .[id number] PRN 12.909 mls/hr PER PROTOCOL Administration Protocol 0.15 MCG/KG/MIN Potassium Chloride 10 meq in 100 mls @ 100 mls/hr 09/12/25 11:18 09/12/25 11:33 Kcl Ivpb IV 09/12/25 13:17 100 mls/hr Q1H NATALIE Administration Eptifibatide 75 mg in 100 mls @ 7.344 mls/hr 09/12/25 11:45 09/12/25 08:16 Integrilin Ivpb IV 09/13/25 01:21 2 mcg/kg/min X1 ONE 7.344 mls/hr Protocol Administration 2 MCG/KG/MIN Insulin Degludec 15 unit 09/13/25 09:00 Insulin Degludec 5 Unit/0.05 Ml (Per 5 Units) SC 10/13/25 08:59 QDAY NATALIE Insulin Human Lispro 0 unit 09/11/25 14:45 09/12/25 10:07 Insulin Lispro (Admelog) 1 Unit/0.01 Ml Unit SC 10/11/25 14:44 5 unit Q4HR NATALIE Administration Protocol Ondansetron HCl 4 mg 09/11/25 14:20 Ondansetron Inj 2 Mg/Ml Inj 2 Ml IVP 10/11/25 14:19 Q6H PRN NAUSEA OR VOMITING Protocol Pantoprazole Sodium 40 mg 09/12/25 09:00 09/12/25 10:07 Pantoprazole Inj 40 Mg Vial IVP 10/12/25 08:59 40 mg QDAY NATALIE Administration Plan 65-year-old female with past medical history of diabetes and left lower extremity DVT December 2024 who was previously on Eliquis, but was on hold since the of this month due to schedule right knee arthroplasty on 09/11/2025 was upgraded to the ICU on 09/11/2025 due to STEMI complicated by third-degree AV block along with mild DKA. Neurology: No active disease Cardiovascular: #STEMI day 0 status post cardiac catheterization Patient reported mild discomfort at the epigastric area on Tuesday after she did chores around the house. Patient found to have ST elevations on EKG on leads V1 through V along with some T wave inversions in lead I, Bedside ultrasound showed wall motion abnormalities , Troponin levels were 74.18 GEORGI score 9 points 35.9% risk of all-cause mortality at 30 days Treatment plan: Patient currently on heparin drip, Integrilin, was given another loading dose of aspirin 325, and Plavix 300 mg p.o. and will continue with the maintenance dose 81 mg and 75 mg respectively Close monitoring for post GA complications or bleeding #Shock: most likely cardiogenic shock Patient was found to have presistant hypotension, P. edema, cold extremeties, delaied capillary refill, unresponsive to IVF. EF on Cardiac cath was 20%, We belive that it is cardiogenic shock as a sequale of the STEMI. No source of infection was noticed. Plan: Patient was placed on IABP, in good position placed by coke crusher operator Dr Lyles, q1h preipheral pulse check Stop IVF, Keep patient on Levo, Cosider starting the patient on Dobutamine if worsening, F/U with the coke crusher operator recommendations consider starting the patient on BIPAP to help unload LFV and P. congestion Consider repeating lasix if K is normal and if patient still has pulmonary edema. Strict in/out #Third-degree AV block Repeat EKG showed third-degree AV block, reported by the emergency physician that the patient was on and off of third-degree heart block. During catheterization patient was placed on temp pacemaker, with target rate of 100BPM Follow-up: Telemonitring, continue pacing and follow up with the coke crusher operator recommendations Respiratory No active disease GI #Elevated liver enzymes most likely 2/2 to congestion vs ischemic hepatic injury Continue to monitor daily Renal #Anion gap metabolic acidosis ( Resolved ) #MIXED Metabolic acidosis and Respiratory alkalosis # Lactic acidosis PH this morning 09/12 was found to 7.44, with low Bicarbs: 15.4 PCO 25 Lactic acid is fluctutating between 5-3, repeat BHB 1.0 blood glucose 297 this morning Patient denied any pain, diarrhea or vomiting, however she recieved multiple boluses of IVF. Plan will try to correct the shock cautiously, will consider BIPAP and/or dobutamine if needed continue to monitor, Tight blood sugar control with q3H ISS #Hypophosphatemia Resolved No active disease Heme #Normocytic normochromic anemia Patient's hemoglobin 10.8 from 11.8 yesterday No active signs of bleeding at this time Treatment plan: Follow-up in a.m. CBC, Iron panel AM, blood film # Leukocytosis Less likely infectious as no fevers nor infectious source. Treatment plan: Will follow-up in morning CBC Endo #Mild DKA Resolved #Hyperglycemia Initial bicarb was 14.7 initial anion gap was 19 Glucose was 492 initial labs and A1c was 8.3. Patient has had 3 L of IV fluids as well as insulin requiring 10 units in the ED Anion gap has improved to 13 and bicarb has improved to 18.3. Treatment plan: Patient will continue to be n.p.o. Tight blood glucose control Change ISS to Q3HR, Increased the dose of Degludic to 15IU per day Treatment follow-up: Repeat renal panel, ABG in the morning ID No active disease MSK No active disease Lines: PIV [place]: YES Vent: none Diet: NPO DVT prophylaxis: Heparin drip CODE STATUS: Full code - Patient's plan and care discussed with my attending, Dr. Phillip Shabazz MD Internal Medicine PGY-3
--- NOTE | 2025-09-12 13:03 | PC.CC ---
Addendum entered by Papi Anderson RN 09/12/25 13:07: Marito called back to inform me Dr. Fisher officially canceled transfer request. Pt's need for transfer was completed here at [facility] geotechnical laboratory technician this morning. Original Note: spoke to ICU CN Marito to verify transfer request is canceled. He stated he will discuss with Dr. Fisher and call me back.
[2025-09-12 14:21] LABS: Reflex Lactate? Y
[2025-09-12 14:31] LABS: Base Excess, Venous -6 (-3-3); Lactate (Lactic Acid) 2.0 mMol/L (0.4-2.0); O2 Saturation, Venous 97 % (96-97); PCO2, Venous 27 mmHg (36-56); PO2, Venous 79 mmHg (15-58); pH, Venous 7.42 (7.33-7.66)
--- NOTE | 2025-09-12 14:42 | PC.SS ---
BURLESQUE DANCER conducted phone contact with the patient?s spouse, Cleve Corbett to conduct initial assessment and to discuss discharge planning on behalf of the patient.? Patient is admitted to ICU.? Patient resides at home with spouse.? Patient utilizes a walker to assist with ambulation.? Patient does not require the use of home oxygen.? Patient is able to complete ADL?s independently.? Patient?s medical surrogate decision maker is spouse, Cleve Santosmanishmarisela.? Patient?s PCP is Willian Hanley.? Patient utilizes [facility].? Discharge plan is for the patient to return home.? Family to provide transportation.? No discharge needs identified at this time. ?No further intervention required at this time, social service coordinator will be available to address any further concerns.? Next of Kin: Cleve Arriazanitish D/C Plan: Home
[2025-09-12 15:09] LABS: Alanine Aminotransferase 196 U/L (10-49); Albumin, Serum 3.5 gm/dL (3.4-4.8); Albumin/Globulin Ratio 1.8 (1.2-2.2); Alkaline Phosphatase 110 U/L (46-116); Anion Gap 11 (7-16); Aspartate Amino Transferase 265 U/L (0-34); BUN/Creatinine Ratio 26 Ratio (12-20); Bilirubin,Total 0.4 mg/dL (0.3-1.2); Blood Urea Nitrogen 23 mg/dL (9-23); Calcium 8.1 mg/dL (8.3-10.6); Calcium (Corrected) 8.5 mg/dL (8.5-10.1); Carbon Dioxide 17.6 mMol/L (20.0-31.0); Chloride 107 mMol/L (98-107); Creatinine (Component) 0.9 mg/dL (0.6-1.3); Estimated Creatinine Clearance 44.8 mL/min (>60); Globulin 2.0 gm/dL (2.3-3.5); Glucose 188 mg/dL (74-106); Magnesium 2.1 mg/dL (1.6-2.6); Osmolality,Calculated 280 (275-295); Phosphorous 3.2 mg/dL (2.4-5.1); Potassium 4.4 mMol/L (3.4-5.1); Sodium 136 mMol/L (136-145); Total Protein 5.5 gm/dL (5.7-8.2); eGFR > 60 See Note
--- NOTE | 2025-09-12 19:12 | XR_ITS ---
EXAMINATION: AP chest single view TECHNIQUE: AP portable supine chest single view Date and time: September 12, 2025, 1938 hours, comparison September 12, 2025 10:51 a.m. FINDINGS: Difficulty breathing this week, severe pneumonia on chest film this morning FINDINGS: The film is underpenetrated There remains severe pneumonia of both lungs Mild prominence left ventricle Prominent osteopenia IMPRESSION: Extensive bilateral pneumonia
--- NOTE | 2025-09-12 19:19 | PC.NURSE ---
1129 MD Lyles was notified of the patients Ankle Brachial Index running low at the 60 percentile and below, stated that he is okay with the PALAK running low. However he stated to make sure to assess the patient extremities for pedal pulses and any mottling to the extremities q15min for 6 hours then 30 min for the remainder of the time the patient has the IABP. 0350 MD Lyles was notified that the patients augmentation pressures are continuously alarming that they are low. stated to keep an eye on the blood pressures on IABP and as long as the MAP >65 no need to worry about augmentation pressures alarming.
[2025-09-12 19:30] LABS: Lactate (Lactic Acid) 2.1 mMol/L (0.4-2.0)
[2025-09-12 19:59] LABS: Alanine Aminotransferase 192 U/L (10-49); Albumin, Serum 3.7 gm/dL (3.4-4.8); Albumin/Globulin Ratio 1.5 (1.2-2.2); Alkaline Phosphatase 118 U/L (46-116); Anion Gap 13 (7-16); Aspartate Amino Transferase 199 U/L (0-34); BUN/Creatinine Ratio 24 Ratio (12-20); Bilirubin,Total 0.5 mg/dL (0.3-1.2); Blood Urea Nitrogen 22 mg/dL (9-23); Calcium 8.7 mg/dL (8.3-10.6); Calcium (Corrected) 8.9 mg/dL (8.5-10.1); Carbon Dioxide 18.3 mMol/L (20.0-31.0); Chloride 107 mMol/L (98-107); Creatinine (Component) 0.9 mg/dL (0.6-1.3); Estimated Creatinine Clearance 44.8 mL/min (>60); Globulin 2.4 gm/dL (2.3-3.5); Glucose 136 mg/dL (74-106); Osmolality,Calculated 280 (275-295); Potassium 4.0 mMol/L (3.4-5.1); Sodium 138 mMol/L (136-145); Total Protein 6.1 gm/dL (5.7-8.2); eGFR > 60 See Note
[2025-09-12] MEDS: cefTRIAXone/D5w 1gm IV premix 1 GM/50 ML BAG IV (20:45)
[2025-09-12] MEDS: ATORVASTATIN CALCIUM 20 MG TABLET 80 MG PO (20:50)
[2025-09-12] MEDS: CITRIC ACID/SODIUM CITR 15 ML UDC (BICITRA) 30 ML PO (20:50)
[2025-09-12 21:11] LABS: Troponin I 46.514 ng/mL (0.0-0.045)
[2025-09-12 22:25] LABS: Reflex Lactate? Y
[2025-09-12 23:49] LABS: Lactate (Lactic Acid) 1.4 mMol/L (0.4-2.0)
[2025-09-13] VITALS (172 sets, daily range): BP systolic 73–148; BP diastolic 41–92; PULSE 0–151; RESP 16–42; TEMP 36–36.8; O2SAT 91–100; BMI 22.1
[2025-09-13] MEDS: FUROSEMIDE INJ 10 MG/ML 4ML VIAL 40 MG IVP ×2 (02:26→10:45)
[2025-09-13 03:18] LABS: Lactate (Lactic Acid) 1.2 mMol/L (0.4-2.0)
[2025-09-13] MEDS: DEXTROSE 50%-WATER INJ 50 ML SYRINGE 25 ML IVP (05:50)
--- NOTE | 2025-09-13 06:09 | XR_ITS ---
EXAMINATION: AP chest single view TECHNIQUE: AP portable supine chest single view Date and time: September 13, 2025, 0626 hours, comparison September 12, 2025 INDICATIONS: Chest pain shortness of breath this week. FINDINGS: Extensive bilateral pneumonia ARDS There is mild enlargement of the cardiac contour with vascular congestion Prominent osteopenia Left mediastinal surgical clip Small left pleural effusion small right pleural effusion IMPRESSION: Extensive bilateral pneumonia / ARDS again noted There appears to be mild associated heart failure
[2025-09-13] MEDS: Magnesium Sulfate 2 GM Ivpb 2 GM/50 ML BAG IV ×2 (06:10→07:23)
[2025-09-13 06:16] LABS: Basophils # (Auto) 0.0 Thou/mm3 (0.0-0.2); Basophils % (Auto) 0 % (0-2.5); Eosinophils # (Auto) 0.0 Thou/mm3 (0.0-0.5); Eosinophils % (Auto) 0 % (0-10); Hematocrit 30.6 % (36.0-46.0); Hemoglobin 10.5 g/dL (12.0-16.0); Immature Granulocytes Auto 0.10 Thou/mm3 (0.00-0.00); Lymphocytes # (Auto) 2.0 Thou/mm3 (1.0-4.8); Lymphocytes % (Auto) 15 % (10-50); Mean Corpuscular HGB Conc 34.3 g/dl (31.0-37.0); Mean Corpuscular Hemoglobin 30.5 pg (25.0-35.0); Mean Corpuscular Volume 89 fL (80-100); Monocytes # (Auto) 1.0 Thou/mm3 (0.0-0.8); Monocytes % (Auto) 8 % (0-12); Neutrophils # (Auto) 10.2 Thou/mm3 (1.8-7.7); Neutrophils % (Auto) 76 % (37-80); Nucleated Red Blood Cell # 0.00 Thou/mm3 (0.00-0.00); Nucleated Red Blood Cell % 0 /100 WBC (0); Platelet Count 282 Thou/mm3 (140-440); RDW Standard Deviation 44.2 fL (36.4-46.3); Red Blood Count 3.44 Miln/mm3 (4.00-5.20); White Blood Count 13.4 Thou/mm3 (3.6-11.0)
[2025-09-13 06:25] LABS: INR 1.1 (0.9-1.3); Partial Thromboplastin Time 28.5 Seconds (22.0-36.0); Prothrombin Time 11.4 Seconds (9.0-12.2)
[2025-09-13 06:35] LABS: Alanine Aminotransferase 159 U/L (10-49); Albumin, Serum 3.5 gm/dL (3.4-4.8); Albumin/Globulin Ratio 1.6 (1.2-2.2); Alkaline Phosphatase 112 U/L (46-116); Anion Gap 13 (7-16); Aspartate Amino Transferase 129 U/L (0-34); BUN/Creatinine Ratio 24 Ratio (12-20); Bilirubin,Total 0.4 mg/dL (0.3-1.2); Blood Urea Nitrogen 19 mg/dL (9-23); Calcium 7.9 mg/dL (8.3-10.6); Calcium (Corrected) 8.3 mg/dL (8.5-10.1); Carbon Dioxide 21.1 mMol/L (20.0-31.0); Chloride 107 mMol/L (98-107); Creatinine (Component) 0.8 mg/dL (0.6-1.3); Estimated Creatinine Clearance 50.4 mL/min (>60); Globulin 2.2 gm/dL (2.3-3.5); Glucose 72 mg/dL (74-106); Magnesium 1.8 mg/dL (1.6-2.6); Osmolality,Calculated 282 (275-295); Phosphorous 2.9 mg/dL (2.4-5.1); Potassium 3.1 mMol/L (3.4-5.1); Sodium 141 mMol/L (136-145); Total Protein 5.7 gm/dL (5.7-8.2); eGFR > 60 See Note
[2025-09-13] MEDS: POTASSIUM CHL 10 mEq IVPB 10 MEQ/100 ML BAG 100 MEQ IV ×4 (06:49→10:50)
[2025-09-13] MEDS: CALCIUM CARBONATE 600 MG TABLET PO (07:45)
[2025-09-13 08:10] LABS: Procalcitonin 1.31 ng/ml (0.0-0.49)
--- NOTE | 2025-09-13 08:38 | ESPR_ITS ---
Documentation for date of: 09/13/25 Subjective Subjective Interval history: This is a 65yo F who presented yesterday for arthroplasty and a rapid was called for hyperlgycemia. Pt was admitted for mild DKA and then found to have a STEMI. Cardiology was consulted and felt to have a STEMI that was >12hrs old. She was noted to have bradycardia with initially intermittent 3rd degree block and then progressed to complete 3rd degree block. Overnight she was briefly transcutaneously paced and then went to [facility] at 6am. There she underwent thrombectomy and transvenous pacemaker placement along with an IABP and was returned to the ICU. She is currently on heparin gtt and an integrilin gtt. She is awake and alert and admits to experiencing some chest pain yesterday and the day before that radiated to her back however she thought it was due to housework. She notes some SOB currently though for the most part states she feels well. 09/13- overnight remained on IABP, brief episode where transvenous pacer was accidentally disconnected and total 3rd degree block noted -> pacer was reconnected and pt cont to be completely paced, levo has been weened down and is now off, has had good UOP and is net neg 3lt over last 24hrs, denies chest pain or SOB, states she feels well Critical Care Note Critical care time (min.): 55 Exam Vital Signs Temp Pulse Resp BP Pulse Ox O2 Del Method O2 Flow Rate 98.1 F 102 H 25 H 89/43 L 99 Nasal Cannula 3.5 09/13/25 04:00 09/13/25 06:55 09/13/25 06:55 09/13/25 06:55 09/13/25 06:55 09/12/25 08:25 09/12/25 23:00 FiO2 2 09/12/25 04:16 Narrative Exam Gen- NAD, AAOx4, nl body habitus HEENT- NC/AT, mucosa dry, sclera anicteric, EOMI, Chest- LCTAB, wheeze has resolved, no crackles, HRRR, murmur with IABP Abd- s/nt/bs+ Ext- no edema, pulses dopplerable, no focal deficits, R groin with IABP and transvenous pacer in place, no mottling, no clubbing Drips heparin Lines IABP 1:2 transvenous pacer Physical Exam Completion Physical Exam Complete?: Yes Objective - [employer] Labs 09/14/25 04:59 09/14/25 04:59 Labs: Laboratory Results - last 24 hr 09/12/25 09/12/25 09/12/25 09:22 11:10 11:27 WBC 15.2 H RBC 3.73 L Hgb 11.2 L Hct 33.8 L MCV 91 MCH 30.0 MCHC 33.1 RDW Std Deviation 45.3 Plt Count 281 Neut % (Auto) 82 H Lymph % (Auto) 10 Lares % (Auto) 8 Eos % (Auto) 0 Baso % (Auto) 0 Neut # (Auto) 12.4 H Lymph # (Auto) 1.5 Lares # (Auto) 1.2 H Eos # (Auto) 0.0 Baso # (Auto) 0.0 Immature Gran # (Auto) 0.08 H Absolute Nucleated RBC 0.00 Immature Gran % 1 H Nucleated RBC % 0 PT INR APTT Puncture Site Left Radial ABG pH 7.44 ABG pCO2 25 L ABG pO2 71 L ABG HCO3 17 L ABG O2 Saturation 95 ABG Base Excess -6 L VBG pH 7.32 L VBG pCO2 32 L VBG pO2 57 D VBG O2 Sat (Nicolasa) 86 L VBG Base Excess -9 L Oxygen Liter Flow 4 Sodium 137 135 L Potassium 4.3 D 4.3 Chloride 107 107 Carbon Dioxide 14.7 L* 15.1 L Anion Gap 15 13 BUN 26 H 22 Creatinine 1.0 1.0 Estim Creat Clear Calc 40.3 L 40.3 L eGFR > 60 > 60 BUN/Creatinine Ratio 26 H 22 H Glucose 278 H 266 H Calculated Osmolality 288 282 Lactic Acid 5.0 H* 3.7 H Calcium 8.5 8.2 L Corrected Calcium 8.7 8.4 L Phosphorus Magnesium Total Bilirubin 0.6 0.5 AST 302 H 313 H ALT 218 H 219 H Alkaline Phosphatase 123 H D 121 H Total Creatine Kinase 1001 H Troponin I 118.724 H* D Total Protein 5.8 5.8 Albumin 3.7 3.7 Globulin 2.1 L 2.1 L Albumin/Globulin Ratio 1.8 1.8 Beta-Hydroxybutyrate/Acetoacetate 1.0 H Procalcitonin 09/12/25 09/12/25 09/12/25 14:14 18:58 18:58 WBC RBC Hgb Hct MCV MCH MCHC RDW Std Deviation Plt Count Neut % (Auto) Lymph % (Auto) Lares % (Auto) Eos % (Auto) Baso % (Auto) Neut # (Auto) Lymph # (Auto) Lares # (Auto) Eos # (Auto) Baso # (Auto) Immature Gran # (Auto) Absolute Nucleated RBC Immature Gran % Nucleated RBC % PT INR APTT Puncture Site ABG pH ABG pCO2 ABG pO2 ABG HCO3 ABG O2 Saturation ABG Base Excess VBG pH 7.42 Cancelled VBG pCO2 27 L Cancelled VBG pO2 79 H D Cancelled VBG O2 Sat (Nicolasa) 97 Cancelled VBG Base Excess -6 L Cancelled Oxygen Liter Flow Sodium 136 Cancelled 138 Potassium 4.4 Cancelled Chloride 107 Carbon Dioxide 17.6 L Anion Gap 11 BUN 23 Creatinine 0.9 Estim Creat Clear Calc 44.8 L eGFR > 60 BUN/Creatinine Ratio 26 H Glucose 188 H D Calculated Osmolality 280 Lactic Acid 2.0 Calcium 8.1 L Corrected Calcium 8.5 Phosphorus 3.2 Magnesium 2.1 Total Bilirubin 0.4 AST 265 H ALT 196 H Alkaline Phosphatase 110 Total Creatine Kinase Troponin I 73.958 H* D Total Protein 5.5 L Albumin 3.5 Globulin 2.0 L Albumin/Globulin Ratio 1.8 Beta-Hydroxybutyrate/Acetoacetate Procalcitonin 09/12/25 09/12/25 09/12/25 18:58 18:58 18:58 WBC RBC Hgb Hct MCV MCH MCHC RDW Std Deviation Plt Count Neut % (Auto) Lymph % (Auto) Lares % (Auto) Eos % (Auto) Baso % (Auto) Neut # (Auto) Lymph # (Auto) Lares # (Auto) Eos # (Auto) Baso # (Auto) Immature Gran # (Auto) Absolute Nucleated RBC Immature Gran % Nucleated RBC % PT INR APTT Puncture Site ABG pH ABG pCO2 ABG pO2 ABG HCO3 ABG O2 Saturation ABG Base Excess VBG pH VBG pCO2 VBG pO2 VBG O2 Sat (Nicolasa) VBG Base Excess Oxygen Liter Flow Sodium Potassium 4.0 Chloride Cancelled 107 Carbon Dioxide Cancelled 18.3 L Anion Gap Cancelled BUN Creatinine Estim Creat Clear Calc eGFR BUN/Creatinine Ratio Glucose Calculated Osmolality Lactic Acid Calcium Corrected Calcium Phosphorus Magnesium Total Bilirubin AST ALT Alkaline Phosphatase Total Creatine Kinase Troponin I Total Protein Albumin Globulin Albumin/Globulin Ratio Beta-Hydroxybutyrate/Acetoacetate Procalcitonin 09/12/25 09/12/25 09/12/25 18:58 18:58 18:58 WBC RBC Hgb Hct MCV MCH MCHC RDW Std Deviation Plt Count Neut % (Auto) Lymph % (Auto) Lares % (Auto) Eos % (Auto) Baso % (Auto) Neut # (Auto) Lymph # (Auto) Lares # (Auto) Eos # (Auto) Baso # (Auto) Immature Gran # (Auto) Absolute Nucleated RBC Immature Gran % Nucleated RBC % PT INR APTT Puncture Site ABG pH ABG pCO2 ABG pO2 ABG HCO3 ABG O2 Saturation ABG Base Excess VBG pH VBG pCO2 VBG pO2 VBG O2 Sat (Nicolasa) VBG Base Excess Oxygen Liter Flow Sodium Potassium Chloride Carbon Dioxide Anion Gap 13 BUN Cancelled 22 Creatinine Cancelled 0.9 Estim Creat Clear Calc Cancelled eGFR BUN/Creatinine Ratio Glucose Calculated Osmolality Lactic Acid Calcium Corrected Calcium Phosphorus Magnesium Total Bilirubin AST ALT Alkaline Phosphatase Total Creatine Kinase Troponin I Total Protein Albumin Globulin Albumin/Globulin Ratio Beta-Hydroxybutyrate/Acetoacetate Procalcitonin 09/12/25 09/12/25 09/12/25 18:58 18:58 18:58 WBC RBC Hgb Hct MCV MCH MCHC RDW Std Deviation Plt Count Neut % (Auto) Lymph % (Auto) Lares % (Auto) Eos % (Auto) Baso % (Auto) Neut # (Auto) Lymph # (Auto) Lares # (Auto) Eos # (Auto) Baso # (Auto) Immature Gran # (Auto) Absolute Nucleated RBC Immature Gran % Nucleated RBC % PT INR APTT Puncture Site ABG pH ABG pCO2 ABG pO2 ABG HCO3 ABG O2 Saturation ABG Base Excess VBG pH VBG pCO2 VBG pO2 VBG O2 Sat (Nicolasa) VBG Base Excess Oxygen Liter Flow Sodium Potassium Chloride Carbon Dioxide Anion Gap BUN Creatinine Estim Creat Clear Calc 44.8 L eGFR Cancelled > 60 BUN/Creatinine Ratio Cancelled 24 H Glucose Cancelled Calculated Osmolality Lactic Acid Calcium Corrected Calcium Phosphorus Magnesium Total Bilirubin AST ALT Alkaline Phosphatase Total Creatine Kinase Troponin I Total Protein Albumin Globulin Albumin/Globulin Ratio Beta-Hydroxybutyrate/Acetoacetate Procalcitonin 09/12/25 09/12/25 09/12/25 18:58 18:58 18:58 WBC RBC Hgb Hct MCV MCH MCHC RDW Std Deviation Plt Count Neut % (Auto) Lymph % (Auto) Lares % (Auto) Eos % (Auto) Baso % (Auto) Neut # (Auto) Lymph # (Auto) Lares # (Auto) Eos # (Auto) Baso # (Auto) Immature Gran # (Auto) Absolute Nucleated RBC Immature Gran % Nucleated RBC % PT INR APTT Puncture Site ABG pH ABG pCO2 ABG pO2 ABG HCO3 ABG O2 Saturation ABG Base Excess VBG pH VBG pCO2 VBG pO2 VBG O2 Sat (Nicolasa) VBG Base Excess Oxygen Liter Flow Sodium Potassium Chloride Carbon Dioxide Anion Gap BUN Creatinine Estim Creat Clear Calc eGFR BUN/Creatinine Ratio Glucose 136 H D Calculated Osmolality Cancelled 280 Lactic Acid 2.1 H Calcium Cancelled 8.7 Corrected Calcium Cancelled Phosphorus Magnesium Total Bilirubin AST ALT Alkaline Phosphatase Total Creatine Kinase Troponin I Total Protein Albumin Globulin Albumin/Globulin Ratio Beta-Hydroxybutyrate/Acetoacetate Procalcitonin 09/12/25 09/12/25 09/12/25 18:58 18:58 20:21 WBC RBC Hgb Hct MCV MCH MCHC RDW Std Deviation Plt Count Neut % (Auto) Lymph % (Auto) Lares % (Auto) Eos % (Auto) Baso % (Auto) Neut # (Auto) Lymph # (Auto) Lares # (Auto) Eos # (Auto) Baso # (Auto) Immature Gran # (Auto) Absolute Nucleated RBC Immature Gran % Nucleated RBC % PT INR APTT Puncture Site ABG pH ABG pCO2 ABG pO2 ABG HCO3 ABG O2 Saturation ABG Base Excess VBG pH VBG pCO2 VBG pO2 VBG O2 Sat (Nicolasa) VBG Base Excess Oxygen Liter Flow Sodium Potassium Chloride Carbon Dioxide Anion Gap BUN Creatinine Estim Creat Clear Calc eGFR BUN/Creatinine Ratio Glucose Calculated Osmolality Lactic Acid Calcium Corrected Calcium 8.9 Phosphorus Cancelled Magnesium Cancelled Total Bilirubin 0.5 AST 199 H ALT 192 H Alkaline Phosphatase 118 H Total Creatine Kinase Troponin I 46.514 H* D Total Protein 6.1 Albumin Cancelled 3.7 Globulin 2.4 Albumin/Globulin Ratio 1.5 Beta-Hydroxybutyrate/Acetoacetate Procalcitonin 09/12/25 09/13/25 09/13/25 23:30 03:01 05:35 WBC 13.4 H RBC 3.44 L Hgb 10.5 L Hct 30.6 L MCV 89 MCH 30.5 MCHC 34.3 RDW Std Deviation 44.2 Plt Count 282 Neut % (Auto) 76 Lymph % (Auto) 15 Lares % (Auto) 8 Eos % (Auto) 0 Baso % (Auto) 0 Neut # (Auto) 10.2 H Lymph # (Auto) 2.0 Lares # (Auto) 1.0 H Eos # (Auto) 0.0 Baso # (Auto) 0.0 Immature Gran # (Auto) 0.10 H Absolute Nucleated RBC 0.00 Immature Gran % 1 H Nucleated RBC % 0 PT 11.4 INR 1.1 APTT 28.5 D Puncture Site ABG pH ABG pCO2 ABG pO2 ABG HCO3 ABG O2 Saturation ABG Base Excess VBG pH VBG pCO2 VBG pO2 VBG O2 Sat (Nicolasa) VBG Base Excess Oxygen Liter Flow Sodium 141 Potassium 3.1 L D Chloride 107 Carbon Dioxide 21.1 Anion Gap 13 BUN 19 Creatinine 0.8 Estim Creat Clear Calc 50.4 L eGFR > 60 BUN/Creatinine Ratio 24 H Glucose 72 L D Calculated Osmolality 282 Lactic Acid 1.4 1.2 Calcium 7.9 L Corrected Calcium 8.3 L Phosphorus 2.9 Magnesium 1.8 Total Bilirubin 0.4 AST 129 H ALT 159 H Alkaline Phosphatase 112 Total Creatine Kinase Troponin I Total Protein 5.7 Albumin 3.5 Globulin 2.2 L Albumin/Globulin Ratio 1.6 Beta-Hydroxybutyrate/Acetoacetate Procalcitonin 1.31 H Assessment & Plan Problem List (1) Hyperosmolar hyperglycemic state (HHS): Status: Acute (2) Acute hyperglycemia: Status: Acute (3) Non-STEMI (non-ST elevated myocardial infarction): Status: Acute (4) Coronary artery disease: Status: Acute Additional Assessment Additional Assessment: In summary this is a 65yo F admitted to the ICU with STEMI and cardiogenic shock 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 ST elevations noted in V1-V4 and pt went for cath this morning. She is s/p thrombectomy and angioplasty with stent placement. EF of 20% reported. on IABP for CO support and afterload reduction - IABP support weened down to 1:2 and pt tolerating well - levo is now off - given lasix with good UOP and net neg - cardiology recs appreciated STEMI- pt is s/p cath with angioplasty, thrombectomy and stent placement - on heparin - on ASA/plavix - on statin - echo noted HFrEF- prelim notes EF of 20%, will need BB and poss entresto once her acute shock has resolved - cardiology following - cont lasix - may need spirinolactone later as well 3rd Degree AV block- s/p transvenous pacer placement - cards to eval need for PPM Resp Pulmonary edema- improved - good UOP with diuresis - daily lasix Acute hypoxic resp failure- 2/2 pulmonary edema - sats good, improved after diuresis - ween NC down Renal Acidosis- compensated on ABG - LA and beta hydroxy improved HypoK- replete IV today GI NPO for now Transaminitis- likely due to heart failure - wnl on arrival - improved after diuresis Endo DKA- mild, on FS q3hr with SSI and lantus, avoid additional fluids at this time given her current pulmonary edema - improved from yesterday - resume diet Heme Leukocytosis- likely reactive in nature - trending down Anemia- POA and near baseline - monitor as pt is on Anti PLT and AC - stable ID stable case d/w ICU team, cards labs, imaging, records reviewed ~55ccmin required for eval, exam, review, intervention, discussion and formulation of POC for this critically ill pt with cardiogenic shock Provider Notation Provider Notation: Although this document has been carefully reviewed, there may still be some phonetic and other typographical errors. These errors are purely grammatical due to imperfections in the software program and should not be construed in any way to compromise the substance of the patient's medical care during this visit. Thank you for the opportunity and privilege in assisting you with this patient's care and management.
[2025-09-13] MEDS: fentaNYL CIT INJ 50 mCg/ML AMP 2ML 25 MCG IVP ×2 (09:02→10:10)
[2025-09-13] MEDS: MIDAZOLAM INJ 1 MG/ML VIAL 2 ML IVP (09:02)
[2025-09-13] MEDS: cefTRIAXone/D5w 1gm IV premix 1 GM/50 ML BAG IV (09:23)
[2025-09-13] MEDS: CLOPIDOGREL BISULFATE 75 MG TABLET PO (09:25)
[2025-09-13] MEDS: ASPIRIN EC 81 MG TABEC PO (09:25)
[2025-09-13] MEDS: INSULIN LISPRO (AdmeLOG) 1 UNIT/0.01 ML UNIT SC (09:49)
[2025-09-13] MEDS: INSULIN DEGLUDEC 5 UNIT/0.05 ML (PER 5 UNITS) 15 UNIT SC (10:01)
--- NOTE | 2025-09-13 10:35 | PD.RESPRO ---
Documentation for date of: 09/13/25 Subjective Subjective Interval history: ICU team was asked to see a 65-year-old female with past medical history of diabetes and left lower extremity DVT December 2024 who was previously on Eliquis, but was on hold since the of this month due to schedule right knee arthroplasty on 09/11/2025 after patient had a medical response called in the preop room due to blood sugars in the 500s. Patient stated that yesterday she did have some nausea, but she did not have any vomiting and has not had any chest pain or shortness of breath and has otherwise been feeling her usual health, but that today they told her that she had high blood sugars. In the ED patient was found to have DKA of beta-hydroxybutyrate of 2.8 and anion gap of 19 with bicarb of 14.7 and a lactic acidosis with a lactic acid of 4.4. Patient was initially then admitted to the telemetry floor and hospitalist team did order an EKG which revealed ST elevations in V1-V4 with some T wave inversions in lead I. Given findings and EKG hospitalist team decided to get a troponin levels which showed troponins of 74.180 and given this findings cardiology was consulted at this time. Cardiology recommended to load the patient on aspirin, Plavix, and start the patient also on heparin drip. On my assessment patient stated that she had not had any heart problems in the past and that she had not been having any chest pains or shortness of breath and that her only symptom was that she was complaining some nausea that started yesterday and epigastric pain. She did not have any numbness or tingling in the face or left extremity. She also mentioned that she did not have any family history of heart disease and that she had never had any cardiac events in the past. While in the ED patient also became bradycardic therefore repeat EKGs were ordered patient appeared to be in third-degree heart block and was bradycardic in the 40s to 50s with resolution of the heart block and going to the 70s. Patient would remain totally asymptomatic through these episodes, but blood pressure was in the 65-68 MAP at this time. 09/12/2025: patient underwent, angioplasty and stent placement to the LAD was placed, she was also placed on intra-aortic balloon pump and norepinephrine as the patient was noticed to have cardiogenic shock. Her ejection fraction was 20% on angiography. Questioning after the procedure patient reported that she used to have mild epigastric discomfort and back pain started on Tuesday but she thought it was because of her doing chores on that day. On auscultation patient was found to have wheezing bilaterally more on the left side, and she was also tachypneic. Chest x-ray before angiograph showed reticular infiltrate most likely pulmonary edema. Repeat chest x-ray after the procedure showed worsening pulmonary edema more on the right side. Her labs showed uptrending WBC to 16.1 from 11.7 most likely stress related, hemoglobin stable at 10.7, her APTT within normal range 38.9, repeat ABG after she came from the Technical Service Representative showed pH of 744, CO2 was low for 25, pO2 71, HCO 3 was 17, O2 saturation was 95. Her chemistry showed potassium level was 3.6, carbon oxide of 70.7, serum creatinine 0.9, BUN 23, blood glucose was 291, lactic acid increased from 3.0-5.0 after the cath. Her troponin initially down trended from 74-47.874 however it up trended after the procedure to 118.724. No new chest pain. Creatinine kinase 1001, beta-hydroxybutyrate repeat was 1.0. Repeat EKG showed paced rhythm with heart rate of 100 that was present by the client technical support associate Dr. Lyles, ST segment elevation still present with no arrhythmia. 09/13/2025: Patient was seen examined at bedside this morning. No acute overnight events. Patient overnight was given Lasix 40 and had a urine output of 1.4 L and repeat chest x-ray this morning that show improvement in pulmonary edema. Patient's CBC is downtrending and hemoglobin remained stable for now. No bleeding from right groin area were patient had her heart cath done. Patient did have low potassium at 3.1 therefore was given 80 mg of potassium. Spoke with cardiology this morning who stated to take patient off heparin drip and continue with DAPT. Cardiology also decrease patient's anterior pacing to 70 and took out the intra-aortic balloon. Patient does not have any chest pain or shortness of breath, was started on Rocephin for UTI and possible pneumonia. Otherwise transvenous pacing will likely be taken off tomorrow and is currently off vasopressors at this time therefore we will possibly downgrade to medical floor send 24 to 48 hours. Continue Lasix 40 daily. Exam Vital Signs Temp Pulse Resp BP Pulse Ox O2 Del Method O2 Flow Rate 96.8 F 69 29 H 99/60 93 L Nasal Cannula 3.5 09/13/25 08:02 09/13/25 10:30 09/13/25 10:30 09/13/25 10:30 09/13/25 10:30 09/12/25 08:25 09/12/25 23:00 FiO2 2 09/12/25 04:16 Narrative Exam Gen: A&O X 3, NAD HEENT: NCAT, EOMI, Pupils reactive PATTY, not icteric. External ears normal. No rhinorrhea. Moist mucous membranes. Neck: Supple, full range of motion, no observable masses, No meningeal sign. Lungs: No Respiratory distress, clear bilateral. CV: heart sounds distant, but no murmurs appreciated. Abdomen: Soft, nondistended, No rebound tenderness. R groin area without hematoma, interior pacing catheter in place w/o bleeding MSK: No joint swelling, no redness, peripheral pulses presents, No peripheral edema. Skin: No rashes, petechiae, lesions. Neuro: No focal neurological deficits appreciated, sensory and motor intact. Psych: Cooperative, appropriate mood and effect. Objective Labs 09/13/25 05:35 09/13/25 05:35 Labs: Laboratory Results - last 24 hr 09/12/25 09/12/25 09/12/25 09:22 11:10 11:27 WBC 15.2 H RBC 3.73 L Hgb 11.2 L Hct 33.8 L MCV 91 MCH 30.0 MCHC 33.1 RDW Std Deviation 45.3 Plt Count 281 Neut % (Auto) 82 H Lymph % (Auto) 10 Major % (Auto) 8 Eos % (Auto) 0 Baso % (Auto) 0 Neut # (Auto) 12.4 H Lymph # (Auto) 1.5 Major # (Auto) 1.2 H Eos # (Auto) 0.0 Baso # (Auto) 0.0 Immature Gran # (Auto) 0.08 H Absolute Nucleated RBC 0.00 Immature Gran % 1 H Nucleated RBC % 0 PT INR APTT Puncture Site Left Radial ABG pH 7.44 ABG pCO2 25 L ABG pO2 71 L ABG HCO3 17 L ABG O2 Saturation 95 ABG Base Excess -6 L VBG pH 7.32 L VBG pCO2 32 L VBG pO2 57 D VBG O2 Sat (Nicolasa) 86 L VBG Base Excess -9 L Oxygen Liter Flow 4 Sodium 137 135 L Potassium 4.3 D 4.3 Chloride 107 107 Carbon Dioxide 14.7 L* 15.1 L Anion Gap 15 13 BUN 26 H 22 Creatinine 1.0 1.0 Estim Creat Clear Calc 40.3 L 40.3 L eGFR > 60 > 60 BUN/Creatinine Ratio 26 H 22 H Glucose 278 H 266 H Calculated Osmolality 288 282 Lactic Acid 3.7 H Calcium 8.5 8.2 L Corrected Calcium 8.7 8.4 L Phosphorus Magnesium Total Bilirubin 0.6 0.5 AST 302 H 313 H ALT 218 H 219 H Alkaline Phosphatase 123 H D 121 H Total Creatine Kinase 1001 H Troponin I 118.724 H* D Total Protein 5.8 5.8 Albumin 3.7 3.7 Globulin 2.1 L 2.1 L Albumin/Globulin Ratio 1.8 1.8 Procalcitonin 09/12/25 09/12/25 09/12/25 14:14 18:58 18:58 WBC RBC Hgb Hct MCV MCH MCHC RDW Std Deviation Plt Count Neut % (Auto) Lymph % (Auto) Major % (Auto) Eos % (Auto) Baso % (Auto) Neut # (Auto) Lymph # (Auto) Major # (Auto) Eos # (Auto) Baso # (Auto) Immature Gran # (Auto) Absolute Nucleated RBC Immature Gran % Nucleated RBC % PT INR APTT Puncture Site ABG pH ABG pCO2 ABG pO2 ABG HCO3 ABG O2 Saturation ABG Base Excess VBG pH 7.42 Cancelled VBG pCO2 27 L Cancelled VBG pO2 79 H D Cancelled VBG O2 Sat (Nicolasa) 97 Cancelled VBG Base Excess -6 L Cancelled Oxygen Liter Flow Sodium 136 Cancelled 138 Potassium 4.4 Cancelled Chloride 107 Carbon Dioxide 17.6 L Anion Gap 11 BUN 23 Creatinine 0.9 Estim Creat Clear Calc 44.8 L eGFR > 60 BUN/Creatinine Ratio 26 H Glucose 188 H D Calculated Osmolality 280 Lactic Acid 2.0 Calcium 8.1 L Corrected Calcium 8.5 Phosphorus 3.2 Magnesium 2.1 Total Bilirubin 0.4 AST 265 H ALT 196 H Alkaline Phosphatase 110 Total Creatine Kinase Troponin I 73.958 H* D Total Protein 5.5 L Albumin 3.5 Globulin 2.0 L Albumin/Globulin Ratio 1.8 Procalcitonin 09/12/25 09/12/25 09/12/25 18:58 18:58 18:58 WBC RBC Hgb Hct MCV MCH MCHC RDW Std Deviation Plt Count Neut % (Auto) Lymph % (Auto) Major % (Auto) Eos % (Auto) Baso % (Auto) Neut # (Auto) Lymph # (Auto) Major # (Auto) Eos # (Auto) Baso # (Auto) Immature Gran # (Auto) Absolute Nucleated RBC Immature Gran % Nucleated RBC % PT INR APTT Puncture Site ABG pH ABG pCO2 ABG pO2 ABG HCO3 ABG O2 Saturation ABG Base Excess VBG pH VBG pCO2 VBG pO2 VBG O2 Sat (Nicolasa) VBG Base Excess Oxygen Liter Flow Sodium Potassium 4.0 Chloride Cancelled 107 Carbon Dioxide Cancelled 18.3 L Anion Gap Cancelled BUN Creatinine Estim Creat Clear Calc eGFR BUN/Creatinine Ratio Glucose Calculated Osmolality Lactic Acid Calcium Corrected Calcium Phosphorus Magnesium Total Bilirubin AST ALT Alkaline Phosphatase Total Creatine Kinase Troponin I Total Protein Albumin Globulin Albumin/Globulin Ratio Procalcitonin 09/12/25 09/12/25 09/12/25 18:58 18:58 18:58 WBC RBC Hgb Hct MCV MCH MCHC RDW Std Deviation Plt Count Neut % (Auto) Lymph % (Auto) Major % (Auto) Eos % (Auto) Baso % (Auto) Neut # (Auto) Lymph # (Auto) Major # (Auto) Eos # (Auto) Baso # (Auto) Immature Gran # (Auto) Absolute Nucleated RBC Immature Gran % Nucleated RBC % PT INR APTT Puncture Site ABG pH ABG pCO2 ABG pO2 ABG HCO3 ABG O2 Saturation ABG Base Excess VBG pH VBG pCO2 VBG pO2 VBG O2 Sat (Nicolasa) VBG Base Excess Oxygen Liter Flow Sodium Potassium Chloride Carbon Dioxide Anion Gap 13 BUN Cancelled 22 Creatinine Cancelled 0.9 Estim Creat Clear Calc Cancelled eGFR BUN/Creatinine Ratio Glucose Calculated Osmolality Lactic Acid Calcium Corrected Calcium Phosphorus Magnesium Total Bilirubin AST ALT Alkaline Phosphatase Total Creatine Kinase Troponin I Total Protein Albumin Globulin Albumin/Globulin Ratio Procalcitonin 09/12/25 09/12/25 09/12/25 18:58 18:58 18:58 WBC RBC Hgb Hct MCV MCH MCHC RDW Std Deviation Plt Count Neut % (Auto) Lymph % (Auto) Major % (Auto) Eos % (Auto) Baso % (Auto) Neut # (Auto) Lymph # (Auto) Major # (Auto) Eos # (Auto) Baso # (Auto) Immature Gran # (Auto) Absolute Nucleated RBC Immature Gran % Nucleated RBC % PT INR APTT Puncture Site ABG pH ABG pCO2 ABG pO2 ABG HCO3 ABG O2 Saturation ABG Base Excess VBG pH VBG pCO2 VBG pO2 VBG O2 Sat (Nicolasa) VBG Base Excess Oxygen Liter Flow Sodium Potassium Chloride Carbon Dioxide Anion Gap BUN Creatinine Estim Creat Clear Calc 44.8 L eGFR Cancelled > 60 BUN/Creatinine Ratio Cancelled 24 H Glucose Cancelled Calculated Osmolality Lactic Acid Calcium Corrected Calcium Phosphorus Magnesium Total Bilirubin AST ALT Alkaline Phosphatase Total Creatine Kinase Troponin I Total Protein Albumin Globulin Albumin/Globulin Ratio Procalcitonin 09/12/25 09/12/25 09/12/25 18:58 18:58 18:58 WBC RBC Hgb Hct MCV MCH MCHC RDW Std Deviation Plt Count Neut % (Auto) Lymph % (Auto) Major % (Auto) Eos % (Auto) Baso % (Auto) Neut # (Auto) Lymph # (Auto) Major # (Auto) Eos # (Auto) Baso # (Auto) Immature Gran # (Auto) Absolute Nucleated RBC Immature Gran % Nucleated RBC % PT INR APTT Puncture Site ABG pH ABG pCO2 ABG pO2 ABG HCO3 ABG O2 Saturation ABG Base Excess VBG pH VBG pCO2 VBG pO2 VBG O2 Sat (Nicolasa) VBG Base Excess Oxygen Liter Flow Sodium Potassium Chloride Carbon Dioxide Anion Gap BUN Creatinine Estim Creat Clear Calc eGFR BUN/Creatinine Ratio Glucose 136 H D Calculated Osmolality Cancelled 280 Lactic Acid 2.1 H Calcium Cancelled 8.7 Corrected Calcium Cancelled Phosphorus Magnesium Total Bilirubin AST ALT Alkaline Phosphatase Total Creatine Kinase Troponin I Total Protein Albumin Globulin Albumin/Globulin Ratio Procalcitonin 09/12/25 09/12/25 09/12/25 18:58 18:58 20:21 WBC RBC Hgb Hct MCV MCH MCHC RDW Std Deviation Plt Count Neut % (Auto) Lymph % (Auto) Major % (Auto) Eos % (Auto) Baso % (Auto) Neut # (Auto) Lymph # (Auto) Major # (Auto) Eos # (Auto) Baso # (Auto) Immature Gran # (Auto) Absolute Nucleated RBC Immature Gran % Nucleated RBC % PT INR APTT Puncture Site ABG pH ABG pCO2 ABG pO2 ABG HCO3 ABG O2 Saturation ABG Base Excess VBG pH VBG pCO2 VBG pO2 VBG O2 Sat (Nicolasa) VBG Base Excess Oxygen Liter Flow Sodium Potassium Chloride Carbon Dioxide Anion Gap BUN Creatinine Estim Creat Clear Calc eGFR BUN/Creatinine Ratio Glucose Calculated Osmolality Lactic Acid Calcium Corrected Calcium 8.9 Phosphorus Cancelled Magnesium Cancelled Total Bilirubin 0.5 AST 199 H ALT 192 H Alkaline Phosphatase 118 H Total Creatine Kinase Troponin I 46.514 H* D Total Protein 6.1 Albumin Cancelled 3.7 Globulin 2.4 Albumin/Globulin Ratio 1.5 Procalcitonin 09/12/25 09/13/25 09/13/25 23:30 03:01 05:35 WBC 13.4 H RBC 3.44 L Hgb 10.5 L Hct 30.6 L MCV 89 MCH 30.5 MCHC 34.3 RDW Std Deviation 44.2 Plt Count 282 Neut % (Auto) 76 Lymph % (Auto) 15 Major % (Auto) 8 Eos % (Auto) 0 Baso % (Auto) 0 Neut # (Auto) 10.2 H Lymph # (Auto) 2.0 Major # (Auto) 1.0 H Eos # (Auto) 0.0 Baso # (Auto) 0.0 Immature Gran # (Auto) 0.10 H Absolute Nucleated RBC 0.00 Immature Gran % 1 H Nucleated RBC % 0 PT 11.4 INR 1.1 APTT 28.5 D Puncture Site ABG pH ABG pCO2 ABG pO2 ABG HCO3 ABG O2 Saturation ABG Base Excess VBG pH VBG pCO2 VBG pO2 VBG O2 Sat (Nicolasa) VBG Base Excess Oxygen Liter Flow Sodium 141 Potassium 3.1 L D Chloride 107 Carbon Dioxide 21.1 Anion Gap 13 BUN 19 Creatinine 0.8 Estim Creat Clear Calc 50.4 L eGFR > 60 BUN/Creatinine Ratio 24 H Glucose 72 L D Calculated Osmolality 282 Lactic Acid 1.4 1.2 Calcium 7.9 L Corrected Calcium 8.3 L Phosphorus 2.9 Magnesium 1.8 Total Bilirubin 0.4 AST 129 H ALT 159 H Alkaline Phosphatase 112 Total Creatine Kinase Troponin I Total Protein 5.7 Albumin 3.5 Globulin 2.2 L Albumin/Globulin Ratio 1.6 Procalcitonin 1.31 H ABG Interpretation ABG results: 09/11/25 09/11/25 09/11/25 11:35 14:50 18:21 ABG pH ABG pCO2 ABG pO2 ABG HCO3 ABG O2 Saturation ABG Base Excess VBG pH 7.39 7.50 7.45 VBG pCO2 31 L 21 L D 26 L VBG pO2 25 55 D 35 D VBG Base Excess -5 L -5 L -5 L 09/11/25 09/11/25 09/12/25 19:56 22:29 04:45 ABG pH 7.52 H ABG pCO2 22 L ABG pO2 60 L ABG HCO3 18 L ABG O2 Saturation 94 ABG Base Excess -4 L VBG pH 7.40 7.41 VBG pCO2 33 L 28 L VBG pO2 27 31 VBG Base Excess -4 L -6 L 09/12/25 09/12/25 09/12/25 11:10 11:27 14:14 ABG pH 7.44 ABG pCO2 25 L ABG pO2 71 L ABG HCO3 17 L ABG O2 Saturation 95 ABG Base Excess -6 L VBG pH 7.32 L 7.42 VBG pCO2 32 L 27 L VBG pO2 57 D 79 H D VBG Base Excess -9 L -6 L 09/12/25 18:58 ABG pH ABG pCO2 ABG pO2 ABG HCO3 ABG O2 Saturation ABG Base Excess VBG pH Cancelled VBG pCO2 Cancelled VBG pO2 Cancelled VBG Base Excess Cancelled Quality Measures Quality Measures none Advance care planning discussed with:: patient Assessment & Plan Assessment Current Active Medications: Generic Name Dose Route Start Last Admin Trade Name Adalidq PRN Reason Stop Dose Admin Acetaminophen 650 mg 09/11/25 14:15 Acetaminophen 325 Mg Tablet PO 10/11/25 14:14 Q6H PRN fever >100 or pain 1-310 Hydrocodone Bitart/Acetaminophen 1 tab 09/11/25 14:39 Hydrocodone/Apap 5/325 Tablet PO 09/16/25 14:19 Q4HR PRN PAIN SCALE 4-10(Mod-Sev Aspirin 81 mg 09/13/25 09:00 09/13/25 09:25 Aspirin Ec 81 Mg Tabec PO 10/13/25 08:59 81 mg QDAY NATALIE Administration Atorvastatin Calcium 80 mg 09/11/25 21:00 09/12/25 20:50 Atorvastatin Calcium 20 Mg Tablet PO 10/11/25 20:59 80 mg HS NATALIE Administration Clopidogrel Bisulfate 75 mg 09/13/25 09:00 09/13/25 09:25 Clopidogrel Bisulfate 75 Mg Tablet PO 10/13/25 08:59 75 mg QDAY NATALIE Administration Dextrose 25 ml 09/11/25 14:39 Dextrose 50%-Water Inj 50 Ml Syringe IV 10/11/25 14:38 Q15MIN PRN BG 50-70 responsive npo pt Dextrose 50 ml 09/11/25 14:39 Dextrose 50%-Water Inj 50 Ml Syringe IV 10/11/25 14:38 Q15MIN PRN BG <50 OR BG <70 & pt unresponsive Furosemide 40 mg 09/13/25 10:15 Furosemide Inj 10 Mg/Ml 4ml Vial IVP 10/13/25 10:14 QDAY NATALIE Glucagon 1 mg 09/11/25 14:39 Glucagon Inj 1 Mg Vial IM Q15MIN PRN BG <70, and no IV access Norepinephrine/Dextrose 8 mg in 250 mls @ 12.909 mls/hr 09/12/25 08:15 09/13/25 06:20 Levophed In D5w 8mg/250ml IV 10/12/25 08:14 0 mcg/kg/min .[id number] PRN 0 mls/hr PER PROTOCOL Titration Protocol 0.15 MCG/KG/MIN Ceftriaxone Sodium/Dextrose 1 gm in 50 mls @ 100 mls/hr 09/12/25 20:15 09/13/25 09:23 Rocephin/D5w 1gm Iv Premix IV 09/19/25 20:14 200 mls/hr QDAY NATALIE Administration Potassium Chloride 10 meq in 100 mls @ 100 mls/hr 09/13/25 06:40 09/13/25 09:24 Kcl Ivpb IV 09/13/25 10:39 100 mls/hr Q1H NATALIE Administration Insulin Degludec 15 unit 09/13/25 09:00 09/13/25 10:01 Insulin Degludec 5 Unit/0.05 Ml (Per 5 Units) SC 10/13/25 08:59 15 unit QDAY NATALIE Administration Insulin Human Lispro 0 unit 09/13/25 07:45 09/13/25 09:49 Insulin Lispro (Admelog) 1 Unit/0.01 Ml Unit SC 10/13/25 07:44 1 unit AC NATALIE Administration Protocol Ondansetron HCl 4 mg 09/11/25 14:20 Ondansetron Inj 2 Mg/Ml Inj 2 Ml IVP 10/11/25 14:19 Q6H PRN NAUSEA OR VOMITING Protocol Pantoprazole Sodium 40 mg 09/12/25 09:00 09/13/25 09:24 Pantoprazole Inj 40 Mg Vial IVP 10/12/25 08:59 40 mg QDAY NATALIE Administration Plan 65-year-old female with past medical history of diabetes and left lower extremity DVT December 2024 who was previously on Eliquis, but was on hold since the of this month due to schedule right knee arthroplasty on 09/11/2025 was upgraded to the ICU on 09/11/2025 due to STEMI complicated by third-degree AV block along with mild DKA. Neurology: No active disease Cardiovascular: #STEMI s/p stent #Third-degree AV block Patient denies any chest pain or shortness of breath only complaining of some nausea and epigastric pain. Patient found to have ST elevations on EKG on leads V1 through V along with some T wave inversions in lead I. Bedside ultrasound showed wall motion abnormalities with possible decreased EF, but official echo taken and pending read. Patient was attempted to be transferred for stat heart cath, but no accepting facilities at that time. Repeat EKG showed third-degree AV block on admission Troponin levels were 74.18 and downtrended GEORGI score 9 points 35.9% risk of all-cause mortality at 30 days Underwent successful heart cath with stent placement in LAD and discussed with cardiology if RCA had any disease, but stated no disease in RCA. Treatment plan: DAPT Off heparin drip Patient currently has transvenous pacing Atorvastatin 80 at bedtime Cardiology consulted and stated LAD Cardiology will likely discontinue pacing tomorrow. Follow-up: Evaluate patient for any swelling in R groin area or any respiratory distress. Follow up on repeat EKG #Shock #HFrEF (20%) Most likely cardiogenic in the setting of STEMI and HFrEF (20%) Patient's heart did show occlusion of the LAD and was successfully stented, but also showed an EF of 20%. Patient was placed on Levophed, but currently off Levophed. Plan: Lasix 40 daily Currently off Levophed Pending official echo read Respiratory #Pulmonary edema Patient patient had pulmonary edema likely secondary to cardiogenic shock with reduced ejection fraction as seen on heart cath with an EF of 20%. Chest x-ray this morning that showed improvement in pulmonary edema after Lasix given overnight and yesterday afternoon. Treatment plan: Lasix 40 daily GI #Transaminitis likely in the setting of hypoperfusion vs congestion 2/2 HFrEF AST 129 and ALT 159 today, improving Plan: Follow up on LFT's daily Renal #Anion gap metabolic acidosis, resolved # Lactic acidosis, resolved #Hypophosphatemia, resolved #Hypokalemia #Hypocalcemia Patient's potassium 3.1 and calcium 8.3 Treatment plan: Potassium 80 meq x1 today Calcium 600 x1 Replete as necessary Treatment follow-up: Follow-up on repeat renal function panel No active disease Heme #Normocytic normochromic anemia, stable Patient's hemoglobin 10.5 No active signs of bleeding at this time Treatment plan: Follow-up in a.m. CBC # Leukocytosis Patient's WBC 13.4, improving Less likely infectious, but UA positive for bacteria and CXR read as PNA, but on review of imaging is more suspicious of edema Treatment plan: Rocephin Will follow-up in morning CBC Endo #Mild DKA, resolved ID #Asymptomatic bacteriuria Patient's UA was positive for bacteria however patient does not currently have any urinary symptoms Procal 1.31, likely 2/2 to cardiogenic shock as no symptoms either respiratory or urinary Plan: Ceftriaxone x1. MSK No active disease Lines: PIV Drips: none Vent: none Diet: CLL carb cons DVT prophylaxis: Heparin sc CODE STATUS: Full code Reason of hospitalization: Patient pending transvenous pacing to be removed Case disclosed with Attending Dr. Phillip Durand PGY2 Disclaimer: Even though this this note was dictated by speech recognition and even though it was carefully revised there may still be minor errors in book reviewer due to voice recognition software.
[2025-09-13 11:21] LABS: Beta Hydroxybutyrate 0.2 mmol/L (<0.6)
[2025-09-13 11:41] LABS: Albumin, Serum 3.6 gm/dL (3.4-4.8); Anion Gap 8 (7-16); BUN/Creatinine Ratio 24 Ratio (12-20); Blood Urea Nitrogen 22 mg/dL (9-23); Calcium 7.9 mg/dL (8.3-10.6); Calcium (Corrected) 8.2 mg/dL (8.5-10.1); Carbon Dioxide 22.6 mMol/L (20.0-31.0); Chloride 104 mMol/L (98-107); Creatinine (Component) 0.9 mg/dL (0.6-1.3); Estimated Creatinine Clearance 44.8 mL/min (>60); Glucose 204 mg/dL (74-106); Osmolality,Calculated 279 (275-295); Phosphorous 2.7 mg/dL (2.4-5.1); Potassium 4.1 mMol/L (3.4-5.1); Sodium 135 mMol/L (136-145); eGFR > 60 See Note
[2025-09-13] MEDS: HEPARIN SOD INJ 5000 UNIT/ML VIAL SC ×2 (14:15→21:22)
--- NOTE | 2025-09-13 15:56 | PC.SS ---
Update: Patient on 2L nasal cannula. Pacemaker placement pending. On clear liquid diet. Afebrile. Patient receiving IV antibiotics. Not receiving pressor support.
[2025-09-13] MEDS: ATORVASTATIN CALCIUM 20 MG TABLET 80 MG PO (21:22)
[2025-09-14] VITALS (45 sets, daily range): BP systolic 86–119; BP diastolic 53–73; PULSE 74–100; RESP 12–97; TEMP 36.1–36.8; O2SAT 95–100; BMI 20.5
[2025-09-14 05:33] LABS: Basophils # (Auto) 0.0 Thou/mm3 (0.0-0.2); Basophils % (Auto) 0 % (0-2.5); Eosinophils # (Auto) 0.0 Thou/mm3 (0.0-0.5); Eosinophils % (Auto) 0 % (0-10); Hematocrit 26.8 % (36.0-46.0); Hemoglobin 9.1 g/dL (12.0-16.0); Immature Granulocytes Auto 0.03 Thou/mm3 (0.00-0.00); Lymphocytes # (Auto) 1.7 Thou/mm3 (1.0-4.8); Lymphocytes % (Auto) 18 % (10-50); Mean Corpuscular HGB Conc 34.0 g/dl (31.0-37.0); Mean Corpuscular Hemoglobin 30.3 pg (25.0-35.0); Mean Corpuscular Volume 89 fL (80-100); Monocytes # (Auto) 0.7 Thou/mm3 (0.0-0.8); Monocytes % (Auto) 7 % (0-12); Neutrophils # (Auto) 6.8 Thou/mm3 (1.8-7.7); Neutrophils % (Auto) 74 % (37-80); Nucleated Red Blood Cell # 0.00 Thou/mm3 (0.00-0.00); Nucleated Red Blood Cell % 0 /100 WBC (0); Platelet Count 209 Thou/mm3 (140-440); RDW Standard Deviation 44.3 fL (36.4-46.3); Red Blood Count 3.00 Miln/mm3 (4.00-5.20); White Blood Count 9.2 Thou/mm3 (3.6-11.0)
[2025-09-14 05:45] LABS: Alanine Aminotransferase 136 U/L (10-49); Albumin, Serum 3.3 gm/dL (3.4-4.8); Albumin/Globulin Ratio 1.5 (1.2-2.2); Alkaline Phosphatase 109 U/L (46-116); Anion Gap 9 (7-16); Aspartate Amino Transferase 75 U/L (0-34); BUN/Creatinine Ratio 23 Ratio (12-20); Bilirubin,Total 0.4 mg/dL (0.3-1.2); Blood Urea Nitrogen 16 mg/dL (9-23); Calcium 7.6 mg/dL (8.3-10.6); Calcium (Corrected) 8.2 mg/dL (8.5-10.1); Carbon Dioxide 23.6 mMol/L (20.0-31.0); Chloride 106 mMol/L (98-107); Creatinine (Component) 0.7 mg/dL (0.6-1.3); Estimated Creatinine Clearance 57.6 mL/min (>60); Globulin 2.2 gm/dL (2.3-3.5); Glucose 81 mg/dL (74-106); Magnesium 2.3 mg/dL (1.6-2.6); Osmolality,Calculated 277 (275-295); Phosphorous 2.6 mg/dL (2.4-5.1); Potassium 3.3 mMol/L (3.4-5.1); Sodium 139 mMol/L (136-145); Total Protein 5.5 gm/dL (5.7-8.2); eGFR > 60 See Note
[2025-09-14] MEDS: HEPARIN SOD INJ 5000 UNIT/ML VIAL SC ×2 (06:18→21:07)
[2025-09-14] MEDS: ASPIRIN EC 81 MG TABEC PO (08:25)
[2025-09-14] MEDS: CLOPIDOGREL BISULFATE 75 MG TABLET PO (08:25)
[2025-09-14] MEDS: CALCIUM CARBONATE 600 MG TABLET PO (08:25)
[2025-09-14] MEDS: FUROSEMIDE INJ 10 MG/ML 4ML VIAL 40 MG IVP (08:26)
[2025-09-14] MEDS: POTASSIUM CHL 10 mEq IVPB 10 MEQ/100 ML BAG 100 MEQ IV (08:26)
--- NOTE | 2025-09-14 10:26 | PC.CM ---
LATE ENTRY 09/11 At 1627 on the I received a referral to transfer patient to [facility] as per Dr. Lyles for cardiology. I contacted [facility] and I faxed over information. Dr. Lyles contacted Dr. Anglin at [facility] and he presented the patient. I had started the packet and I made a CD. I later received call from [facility] transfer nurse at [facility] and she stated Dr. Anglin declined patient due to the fact they were extremely busy and could not accommodate patient. I spoke to Dr. Araujo and Dr. Brown to provide them with the information. Dr. Araujo called and spoke to Dr. Apple and it was decided to admit patient to ICU and Dr. Apple would take patient to the photo lab specialist in the morning. Transfer on hold at this time.
--- NOTE | 2025-09-14 11:36 | ESPR_ITS ---
Documentation for date of: 09/14/25 Subjective Subjective Interval history: Patient is feeling better no chest pain noted Intra-aortic balloon pump was removed yesterday Patient remains in sinus rhythm heart rate 90 We will plan to remove the temporary pacemaker today Exam Vital Signs Temp Pulse Resp BP Pulse Ox O2 Del Method O2 Flow Rate 98.2 F 87 20 99/53 L 97 Room Air 2 09/14/25 08:00 09/14/25 11:00 09/14/25 11:00 09/14/25 11:00 09/14/25 11:00 09/14/25 08:00 09/13/25 20:11 FiO2 2 09/12/25 04:16 Routine HEENT Exam Head: Present normocephalic and atraumatic Eye: Present EOMI and PERRL ENT: Present mucous membranes moist Routine Neck Exam Neck: Present supple and trachea midline Routine Respiratory Exam Respiratory: Present chest non-tender, lungs clear, normal breath sounds and no resp distress Routine Cardiovascular Exam Cardiovascular: Present RRR Routine Abdominal Exam Abdominal: Present soft and normoactive bowel sounds Routine Extremities Exam Extremities: Present full ROM Routine Skin Exam Skin: Present intact, dry and warm Routine Neurological Exam Neurological: Present alert, oriented X3 and CN II-XII intact Routine Psychiatric Exam Psychiatric: Present normal affect and normal thought process Objective Labs 09/15/25 05:25 09/15/25 05:25 Labs: Laboratory Results - last 24 hr 09/13/25 09/14/25 11:05 04:59 WBC 9.2 RBC 3.00 L Hgb 9.1 L Hct 26.8 L MCV 89 MCH 30.3 MCHC 34.0 RDW Std Deviation 44.3 Plt Count 209 D Neut % (Auto) 74 Lymph % (Auto) 18 [place] % (Auto) 7 Eos % (Auto) 0 Baso % (Auto) 0 Neut # (Auto) 6.8 Lymph # (Auto) 1.7 [place] # (Auto) 0.7 Eos # (Auto) 0.0 Baso # (Auto) 0.0 Immature Gran # (Auto) 0.03 H Absolute Nucleated RBC 0.00 Immature Gran % 0 Nucleated RBC % 0 Sodium 135 L 139 Potassium 4.1 D 3.3 L D Chloride 104 106 Carbon Dioxide 22.6 23.6 Anion Gap 8 9 BUN 22 16 Creatinine 0.9 0.7 Estim Creat Clear Calc 44.8 L 57.6 L eGFR > 60 > 60 BUN/Creatinine Ratio 24 H 23 H Glucose 204 H D 81 D Calculated Osmolality 279 277 Calcium 7.9 L 7.6 L Corrected Calcium 8.2 L 8.2 L Phosphorus 2.7 2.6 Magnesium 2.3 Total Bilirubin 0.4 AST 75 H ALT 136 H Alkaline Phosphatase 109 Total Protein 5.5 L Albumin 3.6 3.3 L Globulin 2.2 L Albumin/Globulin Ratio 1.5 ABG Interpretation ABG results: 09/11/25 09/11/25 09/11/25 11:35 14:50 18:21 ABG pH ABG pCO2 ABG pO2 ABG HCO3 ABG O2 Saturation ABG Base Excess VBG pH 7.39 7.50 7.45 VBG pCO2 31 L 21 L D 26 L VBG pO2 25 55 D 35 D VBG Base Excess -5 L -5 L -5 L 09/11/25 09/11/25 09/12/25 19:56 22:29 04:45 ABG pH 7.52 H ABG pCO2 22 L ABG pO2 60 L ABG HCO3 18 L ABG O2 Saturation 94 ABG Base Excess -4 L VBG pH 7.40 7.41 VBG pCO2 33 L 28 L VBG pO2 27 31 VBG Base Excess -4 L -6 L 09/12/25 09/12/25 09/12/25 11:10 11:27 14:14 ABG pH 7.44 ABG pCO2 25 L ABG pO2 71 L ABG HCO3 17 L ABG O2 Saturation 95 ABG Base Excess -6 L VBG pH 7.32 L 7.42 VBG pCO2 32 L 27 L VBG pO2 57 D 79 H D VBG Base Excess -9 L -6 L 09/12/25 18:58 ABG pH ABG pCO2 ABG pO2 ABG HCO3 ABG O2 Saturation ABG Base Excess VBG pH Cancelled VBG pCO2 Cancelled VBG pO2 Cancelled VBG Base Excess Cancelled Assessment & Plan A&P Narrative Continue dual antiplatelet agent Time Spent With Patient Time: Total time spent is greater than 50% in coordination of care (as documented) at patient's floor/unit and/or counseling patient:
[2025-09-14] MEDS: INSULIN LISPRO (AdmeLOG) 1 UNIT/0.01 ML UNIT SC (12:30)
[2025-09-14] MEDS: INSULIN DEGLUDEC 5 UNIT/0.05 ML (PER 5 UNITS) 15 UNIT SC (12:31)
[2025-09-14] MEDS: METOPROLOL SUCCINATE XL 25 MG TABCR PO (12:52)
--- NOTE | 2025-09-14 13:22 | ESPR_ITS ---
Documentation for date of: 09/14/25 Subjective Subjective Interval history: ICU team was asked to see a 65-year-old female with past medical history of diabetes and left lower extremity DVT December 2024 who was previously on Eliquis, but was on hold since the of this month due to schedule right knee arthroplasty on 09/11/2025 after patient had a medical response called in the preop room due to blood sugars in the 500s. Patient stated that yesterday she did have some nausea, but she did not have any vomiting and has not had any chest pain or shortness of breath and has otherwise been feeling her usual health, but that today they told her that she had high blood sugars. In the ED patient was found to have DKA of beta-hydroxybutyrate of 2.8 and anion gap of 19 with bicarb of 14.7 and a lactic acidosis with a lactic acid of 4.4. Patient was initially then admitted to the telemetry floor and hospitalist team did order an EKG which revealed ST elevations in V1-V4 with some T wave inversions in lead I. Given findings and EKG hospitalist team decided to get a troponin levels which showed troponins of 74.180 and given this findings cardiology was consulted at this time. Cardiology recommended to load the patient on aspirin, Plavix, and start the patient also on heparin drip. On my assessment patient stated that she had not had any heart problems in the past and that she had not been having any chest pains or shortness of breath and that her only symptom was that she was complaining some nausea that started yesterday and epigastric pain. She did not have any numbness or tingling in the face or left extremity. She also mentioned that she did not have any family history of heart disease and that she had never had any cardiac events in the past. While in the ED patient also became bradycardic therefore repeat EKGs were ordered patient appeared to be in third-degree heart block and was bradycardic in the 40s to 50s with resolution of the heart block and going to the 70s. Patient would remain totally asymptomatic through these episodes, but blood pressure was in the 65-68 MAP at this time. 09/12/2025: patient underwent, angioplasty and stent placement to the LAD was placed, she was also placed on intra-aortic balloon pump and norepinephrine as the patient was noticed to have cardiogenic shock. Her ejection fraction was 20% on angiography. Questioning after the procedure patient reported that she used to have mild epigastric discomfort and back pain started on Tuesday but she thought it was because of her doing chores on that day. On auscultation patient was found to have wheezing bilaterally more on the left side, and she was also tachypneic. Chest x-ray before angiograph showed reticular infiltrate most likely pulmonary edema. Repeat chest x-ray after the procedure showed worsening pulmonary edema more on the right side. Her labs showed uptrending WBC to 16.1 from 11.7 most likely stress related, hemoglobin stable at 10.7, her APTT within normal range 38.9, repeat ABG after she came from the [facility] showed pH of 744, CO2 was low for 25, pO2 71, HCO 3 was 17, O2 saturation was 95. Her chemistry showed potassium level was 3.6, carbon oxide of 70.7, serum creatinine 0.9, BUN 23, blood glucose was 291, lactic acid increased from 3.0-5.0 after the cath. Her troponin initially down trended from 74-47.874 however it up trended after the procedure to 118.724. No new chest pain. Creatinine kinase 1001, beta- hydroxybutyrate repeat was 1.0. Repeat EKG showed paced rhythm with heart rate of 100 that was present by the furnace erector Dr. Lyles, ST segment elevation still present with no arrhythmia. 09/13/2025: Patient was seen examined at bedside this morning. No acute overnight events. Patient overnight was given Lasix 40 and had a urine output of 1.4 L and repeat chest x-ray this morning that show improvement in pulmonary edema. Patient's CBC is downtrending and hemoglobin remained stable for now. No bleeding from right groin area were patient had her heart cath done. Patient did have low potassium at 3.1 therefore was given 80 mg of potassium. Spoke with cardiology this morning who stated to take patient off heparin drip and continue with DAPT. Cardiology also decrease patient's anterior pacing to 70 and took out the intra-aortic balloon. Patient does not have any chest pain or shortness of breath, was started on Rocephin for UTI and possible pneumonia. Otherwise transvenous pacing will likely be taken off tomorrow and is currently off vasopressors at this time therefore we will possibly downgrade to medical floor send 24 to 48 hours. Continue Lasix 40 daily. 09/14/2025: Patient was seen and examined bedside this morning. No acute overnight events. Patient has been off pressors and blood pressure has been stable. Cardiology saw the patient this morning and remove transvenous pacing. Patient currently has a heart rate in the 80s and is not paced. Otherwise right groin area did not show any increased vomiting or erythema or any bleedings. Patient denies any shortness of breath, chest pain, or any other complaints at this time. Patient will be started metoprolol succinate 25 mg daily spironolactone 25 mg daily as GDMT for heart failure, consider adding VAMSI or ARB if blood pressure allows tomorrow. Patient's labs that show mild hypokalemia and hypocalcemia therefore were repleted appropriately. At this time patient is stable enough to be downgraded back to the medical floors. Patient upon discharge will also need a LifeVest given that she will likely need a defibrillator as outpatient for heart failure as primary prevention. Exam Vital Signs Temp Pulse Resp BP Pulse Ox O2 Del Method O2 Flow Rate 98.3 F 90 17 91/57 L 99 Room Air 2 09/14/25 12:00 09/14/25 12:52 09/14/25 12:00 09/14/25 12:52 09/14/25 12:00 09/14/25 12:00 09/13/25 20:11 FiO2 2 09/12/25 04:16 Narrative Exam Gen: A&O X 3, NAD HEENT: NCAT, EOMI, Pupils reactive PATTY, not icteric. External ears normal. No rhinorrhea. Moist mucous membranes. Neck: Supple, full range of motion, no observable masses, No meningeal sign. Lungs: No Respiratory distress, clear bilateral. CV: heart sounds distant, but no murmurs appreciated. Abdomen: Soft, nondistended, No rebound tenderness. R groin area without hematoma MSK: No joint swelling, no redness, peripheral pulses presents, No peripheral edema. Skin: No rashes, petechiae, lesions. Neuro: No focal neurological deficits appreciated, sensory and motor intact. Psych: Cooperative, appropriate mood and effect. Objective Labs 09/15/25 05:25 09/15/25 05:25 Labs: Laboratory Results - last 24 hr 09/14/25 04:59 WBC 9.2 RBC 3.00 L Hgb 9.1 L Hct 26.8 L MCV 89 MCH 30.3 MCHC 34.0 RDW Std Deviation 44.3 Plt Count 209 D Neut % (Auto) 74 Lymph % (Auto) 18 [place] % (Auto) 7 Eos % (Auto) 0 Baso % (Auto) 0 Neut # (Auto) 6.8 Lymph # (Auto) 1.7 [place] # (Auto) 0.7 Eos # (Auto) 0.0 Baso # (Auto) 0.0 Immature Gran # (Auto) 0.03 H Absolute Nucleated RBC 0.00 Immature Gran % 0 Nucleated RBC % 0 Sodium 139 Potassium 3.3 L D Chloride 106 Carbon Dioxide 23.6 Anion Gap 9 BUN 16 Creatinine 0.7 Estim Creat Clear Calc 57.6 L eGFR > 60 BUN/Creatinine Ratio 23 H Glucose 81 D Calculated Osmolality 277 Calcium 7.6 L Corrected Calcium 8.2 L Phosphorus 2.6 Magnesium 2.3 Total Bilirubin 0.4 AST 75 H ALT 136 H Alkaline Phosphatase 109 Total Protein 5.5 L Albumin 3.3 L Globulin 2.2 L Albumin/Globulin Ratio 1.5 ABG Interpretation ABG results: 09/11/25 09/11/25 09/11/25 11:35 14:50 18:21 ABG pH ABG pCO2 ABG pO2 ABG HCO3 ABG O2 Saturation ABG Base Excess VBG pH 7.39 7.50 7.45 VBG pCO2 31 L 21 L D 26 L VBG pO2 25 55 D 35 D VBG Base Excess -5 L -5 L -5 L 09/11/25 09/11/25 09/12/25 19:56 22:29 04:45 ABG pH 7.52 H ABG pCO2 22 L ABG pO2 60 L ABG HCO3 18 L ABG O2 Saturation 94 ABG Base Excess -4 L VBG pH 7.40 7.41 VBG pCO2 33 L 28 L VBG pO2 27 31 VBG Base Excess -4 L -6 L 09/12/25 09/12/25 09/12/25 11:10 11:27 14:14 ABG pH 7.44 ABG pCO2 25 L ABG pO2 71 L ABG HCO3 17 L ABG O2 Saturation 95 ABG Base Excess -6 L VBG pH 7.32 L 7.42 VBG pCO2 32 L 27 L VBG pO2 57 D 79 H D VBG Base Excess -9 L -6 L 09/12/25 18:58 ABG pH ABG pCO2 ABG pO2 ABG HCO3 ABG O2 Saturation ABG Base Excess VBG pH Cancelled VBG pCO2 Cancelled VBG pO2 Cancelled VBG Base Excess Cancelled Quality Measures Quality Measures none Advance care planning discussed with:: patient Assessment & Plan Assessment Current Active Medications: Generic Name Dose Route Start Last Admin Trade Name Rodney PRN Reason Stop Dose Admin Acetaminophen 650 mg 09/11/25 14:15 Acetaminophen 325 Mg Tablet PO 10/11/25 14:14 Q6H PRN fever >100 or pain 1-3/10 Hydrocodone Bitart/Acetaminophen 1 tab 09/11/25 14:39 Hydrocodone/Apap 5/325 Tablet PO 09/16/25 14:19 Q4HR PRN PAIN SCALE 4-10(Mod-Sev Aspirin 81 mg 09/13/25 09:00 09/14/25 08:25 Aspirin Ec 81 Mg Tabec PO 10/13/25 08:59 81 mg QDAY NATALIE Administration Atorvastatin Calcium 80 mg 09/11/25 21:00 09/13/25 21:22 Atorvastatin Calcium 20 Mg Tablet PO 10/11/25 20:59 80 mg HS NATALIE Administration Calcium Carbonate 600 mg 09/14/25 09:00 09/14/25 08:25 Calcium Carbonate 600 Mg Tablet PO 10/14/25 08:59 600 mg QDAY NATALIE Administration Clopidogrel Bisulfate 75 mg 09/13/25 09:00 09/14/25 08:25 Clopidogrel Bisulfate 75 Mg Tablet PO 10/13/25 08:59 75 mg QDAY NATALIE Administration Dextrose 25 ml 09/11/25 14:39 Dextrose 50%-Water Inj 50 Ml Syringe IV 10/11/25 14:38 Q15MIN PRN BG 50-70 responsive npo pt Dextrose 50 ml 09/11/25 14:39 Dextrose 50%-Water Inj 50 Ml Syringe IV 10/11/25 14:38 Q15MIN PRN BG <50 OR BG <70 & pt unresponsive Furosemide 40 mg 09/13/25 10:15 09/14/25 08:26 Furosemide Inj 10 Mg/Ml 4ml Vial IVP 10/13/25 10:14 40 mg QDAY NATALIE Administration Glucagon 1 mg 09/11/25 14:39 Glucagon Inj 1 Mg Vial IM Q15MIN PRN BG <70, and no IV access Heparin Sodium (Porcine) 5,000 unit 09/13/25 14:00 09/14/25 06:18 Heparin Sod Inj 5000 Unit/Ml Vial SC 09/27/25 13:59 5,000 unit Q8HR NATALIE Administration Norepinephrine/Dextrose 8 mg in 250 mls @ 12.909 mls/hr 09/12/25 08:15 09/13/25 06:20 Levophed In D5w 8mg/250ml IV 10/12/25 08:14 0 mcg/kg/min .[id number] PRN 0 mls/hr PER PROTOCOL Titration Protocol 0.15 MCG/KG/MIN Insulin Degludec 15 unit 09/13/25 09:00 09/14/25 12:31 Insulin Degludec 5 Unit/0.05 Ml (Per 5 Units) SC 10/13/25 08:59 15 unit QDAY NATALIE Administration Insulin Human Lispro 0 unit 09/13/25 07:45 09/14/25 12:30 Insulin Lispro (Admelog) 1 Unit/0.01 Ml Unit SC 10/13/25 07:44 4 unit AC NATALIE Administration Protocol Metoprolol Succinate 25 mg 09/14/25 11:45 09/14/25 12:52 Metoprolol Succinate Xl 25 Mg Tabcr PO 10/14/25 11:44 25 mg QDAY NATALIE Administration Ondansetron HCl 4 mg 09/11/25 14:20 Ondansetron Inj 2 Mg/Ml Inj 2 Ml IVP 10/11/25 14:19 Q6H PRN NAUSEA OR VOMITING Protocol Pantoprazole Sodium 40 mg 09/12/25 09:00 09/14/25 08:25 Pantoprazole Inj 40 Mg Vial IVP 10/12/25 08:59 40 mg QDAY NATALIE Administration Spironolactone 25 mg 09/14/25 11:39 Spironolactone 25 Mg Tablet PO 09/14/25 11:40 DAILY ONE Plan 65-year-old female with past medical history of diabetes and left lower extremity DVT December 2024 who was previously on Eliquis, but was on hold since the of this month due to schedule right knee arthroplasty on 09/11/2025 was upgraded to the ICU on 09/11/2025 due to STEMI complicated by third-degree AV block along with mild DKA. Neurology: No active disease Cardiovascular: #STEMI s/p stent #Third-degree AV block Patient denies any chest pain or shortness of breath only complaining of some nausea and epigastric pain. Patient found to have ST elevations on EKG on leads V1 through V along with some T wave inversions in lead I. Bedside ultrasound showed wall motion abnormalities with possible decreased EF, but official echo taken and pending read. Patient was attempted to be transferred for stat heart cath, but no accepting facilities at that time. Repeat EKG showed third-degree AV block on admission Troponin levels were 74.18 and downtrended GEORGI score 9 points 35.9% risk of all-cause mortality at 30 days Underwent successful heart cath with stent placement in LAD and discussed with cardiology if RCA had any disease, but stated no disease in RCA. Treatment plan: DAPT Off heparin drip Transvenous pacing was discontinued Atorvastatin 80 at bedtime Cardiology following, appreciate recommendations #Shock, resolved #HFrEF (20%) Most likely cardiogenic in the setting of STEMI and HFrEF (20%) Patient's heart did show occlusion of the LAD and was successfully stented, but also showed an EF of 20%. Patient was placed on Levophed, but currently off Levophed. Plan: Lasix 40 daily Metoprolol succinate 25 mg daily Spironolactone 25 mg daily Consider starting VAMSI or ARB tomorrow if blood pressure allows Patient will need LifeVest upon discharge Patient also need outpatient workup for defibrillator as primary prevention given EF less than 30. Respiratory #Pulmonary edema, resolved GI #Transaminitis, improving likely in the setting of hypoperfusion vs congestion 2/2 HFrEF AST 75 and ALT 136 today, improving Plan: Follow up on LFT's daily Renal #Anion gap metabolic acidosis, resolved # Lactic acidosis, resolved #Hypophosphatemia, resolved #Hypokalemia #Hypocalcemia Patient's potassium 3.3 and calcium 8.2 Treatment plan: Potassium 60 meq x1 today Calcium 600 xqday Replete as necessary Treatment follow-up: Follow-up on repeat renal function panel No active disease Heme #Normocytic normochromic anemia, stable Patient's hemoglobin 10.5-->9.1 No active signs of bleeding at this time Treatment plan: Follow-up in a.m. CBC # Leukocytosis,resolved Endo #Mild DKA, resolved Degludec 15 units daily and ISS ID #Asymptomatic bacteriuria Patient's UA was positive for bacteria however patient does not currently have any urinary symptoms Procal 1.31, likely 2/2 to cardiogenic shock as no symptoms either respiratory or urinary Plan: Ceftriaxone x1. MSK No active disease Lines: PIV Drips: none Vent: none Diet:carb cons DVT prophylaxis: Heparin sc CODE STATUS: Full code Reason of hospitalization: Patient downgraded to TELE Case disclosed with Attending Dr. Phillip Durand PGY2 Disclaimer: Even though this this note was dictated by speech recognition and even though it was carefully revised there may still be minor errors in starch treating assistant due to voice recognition software. Attending Provider Attestation/Addendum Patient seen and examined, discussed with resident. Agree with above. In brief this is 65-year-old female who has been in the ICU for cardiogenic shock. Her aortic balloon pump was DC'd yesterday and she is currently doing well. She had a STEMI and was sent to the [facility]. She had a thrombectomy with angioplasty and stent done to her LAD. The transvenous pacer is still in place however her third-degree heart block is resolved and her [place] rate is in the 80s and 90s not requiring pacer. She is awake alert and doing well. There are some mild crackles on posterior lung [place]. She is on Lasix with good urinary output. For her heart failure with reduced EF of 20% will start on low-dose beta-abilio today. Will consider starting an VAMSI inhibitor tomorrow. Will continue her diuretic. Discussed with cardiology and she will need a LifeVest prior to discharge with reevaluation in 3 months for ICD. Currently she is doing well and stable for downgrade to telemetry. Case discussed with ICU team and cardiology Labs, imaging and records reviewed Approximately 40 minutes required for evaluation, exam, review, intervention, discussion formulation of plan of care for this acutely ill patient status post STEMI with resolution of her cardiogenic shock
[2025-09-14 14:46] LABS: Albumin, Serum 3.6 gm/dL (3.4-4.8); Anion Gap 10 (7-16); BUN/Creatinine Ratio 21 Ratio (12-20); Blood Urea Nitrogen 17 mg/dL (9-23); Calcium 8.0 mg/dL (8.3-10.6); Calcium (Corrected) 8.3 mg/dL (8.5-10.1); Carbon Dioxide 23.2 mMol/L (20.0-31.0); Chloride 105 mMol/L (98-107); Creatinine (Component) 0.8 mg/dL (0.6-1.3); Estimated Creatinine Clearance 50.4 mL/min (>60); Glucose 147 mg/dL (74-106); Osmolality,Calculated 280 (275-295); Phosphorous 2.4 mg/dL (2.4-5.1); Potassium 4.2 mMol/L (3.4-5.1); Sodium 138 mMol/L (136-145); eGFR > 60 See Note
--- NOTE | 2025-09-14 15:52 | PD.RESPRO ---
Documentation for date of: 09/14/25 Subjective Subjective Interval history: Patient downgraded from ICU. Seen and examined at bedside. Patient resting comfortably. Denies chest pain, shortness of breath, nausea, vomiting, fever, chills. Follow-up with cardiology recommendations, optimize medication prior to discharge. Exam Vital Signs Temp Pulse Resp BP Pulse Ox O2 Del Method O2 Flow Rate 98.3 F 87 21 H 86/56 L 97 Room Air 2 09/14/25 12:00 09/14/25 15:00 09/14/25 15:00 09/14/25 15:00 09/14/25 15:00 09/14/25 12:00 09/13/25 20:11 FiO2 2 09/12/25 04:16 Narrative Exam PE: Gen: Well-developed and well-nourished. HEENT: NCAT, PERRLA, EOMI, MMM, anicteric conjunctivae. CVS: normal S1 and S2. RRR. No M/R/G. Resp: CTA B/L. No rhonchi, rales, crackles or wheezing. Abd: soft, non-tender, non-distended. BS+ in all 4 quadrants. MSK: Good ROM in BUE & BLE. No edema or rash. Neuro: CN II-XII grossly intact. Strength 5/5 in BUE & BLE. Alert and oriented x3. Psych: appropriate mood and affect. Objective Labs 09/15/25 05:25 09/15/25 05:25 Labs: Laboratory Results - last 24 hr 09/14/25 09/14/25 04:59 14:00 WBC 9.2 RBC 3.00 L Hgb 9.1 L Hct 26.8 L MCV 89 MCH 30.3 MCHC 34.0 RDW Std Deviation 44.3 Plt Count 209 D Neut % (Auto) 74 Lymph % (Auto) 18 [place] % (Auto) 7 Eos % (Auto) 0 Baso % (Auto) 0 Neut # (Auto) 6.8 Lymph # (Auto) 1.7 [place] # (Auto) 0.7 Eos # (Auto) 0.0 Baso # (Auto) 0.0 Immature Gran # (Auto) 0.03 H Absolute Nucleated RBC 0.00 Immature Gran % 0 Nucleated RBC % 0 Sodium 139 138 Potassium 3.3 L D 4.2 D Chloride 106 105 Carbon Dioxide 23.6 23.2 Anion Gap 9 10 BUN 16 17 Creatinine 0.7 0.8 Estim Creat Clear Calc 57.6 L 50.4 L eGFR > 60 > 60 BUN/Creatinine Ratio 23 H 21 H Glucose 81 D 147 H D Calculated Osmolality 277 280 Calcium 7.6 L 8.0 L Corrected Calcium 8.2 L 8.3 L Phosphorus 2.6 2.4 Magnesium 2.3 Total Bilirubin 0.4 AST 75 H ALT 136 H Alkaline Phosphatase 109 Total Protein 5.5 L Albumin 3.3 L 3.6 Globulin 2.2 L Albumin/Globulin Ratio 1.5 ABG Interpretation ABG results: 09/11/25 09/11/25 09/11/25 11:35 14:50 18:21 ABG pH ABG pCO2 ABG pO2 ABG HCO3 ABG O2 Saturation ABG Base Excess VBG pH 7.39 7.50 7.45 VBG pCO2 31 L 21 L D 26 L VBG pO2 25 55 D 35 D VBG Base Excess -5 L -5 L -5 L 09/11/25 09/11/25 09/12/25 19:56 22:29 04:45 ABG pH 7.52 H ABG pCO2 22 L ABG pO2 60 L ABG HCO3 18 L ABG O2 Saturation 94 ABG Base Excess -4 L VBG pH 7.40 7.41 VBG pCO2 33 L 28 L VBG pO2 27 31 VBG Base Excess -4 L -6 L 09/12/25 09/12/25 09/12/25 11:10 11:27 14:14 ABG pH 7.44 ABG pCO2 25 L ABG pO2 71 L ABG HCO3 17 L ABG O2 Saturation 95 ABG Base Excess -6 L VBG pH 7.32 L 7.42 VBG pCO2 32 L 27 L VBG pO2 57 D 79 H D VBG Base Excess -9 L -6 L 09/12/25 18:58 ABG pH ABG pCO2 ABG pO2 ABG HCO3 ABG O2 Saturation ABG Base Excess VBG pH Cancelled VBG pCO2 Cancelled VBG pO2 Cancelled VBG Base Excess Cancelled Quality Measures Quality Measures VTE prophylaxis Advance care planning discussed with:: patient Assessment & Plan Assessment Current Active Medications: Generic Name Dose Route Start Last Admin Trade Name Freq PRN Reason Stop Dose Admin Acetaminophen 650 mg 09/11/25 14:15 Acetaminophen 325 Mg Tablet PO 10/11/25 14:14 Q6H PRN fever >100 or pain 1-3/10 Hydrocodone Bitart/Acetaminophen 1 tab 09/11/25 14:39 Hydrocodone/Apap 5/325 Tablet PO 09/16/25 14:19 Q4HR PRN PAIN SCALE 4-10(Mod-Sev Aspirin 81 mg 09/13/25 09:00 09/14/25 08:25 Aspirin Ec 81 Mg Tabec PO 10/13/25 08:59 81 mg QDAY NATALIE Administration Atorvastatin Calcium 80 mg 09/11/25 21:00 09/13/25 21:22 Atorvastatin Calcium 20 Mg Tablet PO 10/11/25 20:59 80 mg HS NATALIE Administration Calcium Carbonate 600 mg 09/14/25 09:00 09/14/25 08:25 Calcium Carbonate 600 Mg Tablet PO 10/14/25 08:59 600 mg QDAY NATALIE Administration Clopidogrel Bisulfate 75 mg 09/13/25 09:00 09/14/25 08:25 Clopidogrel Bisulfate 75 Mg Tablet PO 10/13/25 08:59 75 mg QDAY NATALIE Administration Dextrose 25 ml 09/11/25 14:39 Dextrose 50%-Water Inj 50 Ml Syringe IV 10/11/25 14:38 Q15MIN PRN BG 50-70 responsive npo pt Dextrose 50 ml 09/11/25 14:39 Dextrose 50%-Water Inj 50 Ml Syringe IV 10/11/25 14:38 Q15MIN PRN BG <50 OR BG <70 & pt unresponsive Furosemide 40 mg 09/13/25 10:15 09/14/25 08:26 Furosemide Inj 10 Mg/Ml 4ml Vial IVP 10/13/25 10:14 40 mg QDAY NATALIE Administration Glucagon 1 mg 09/11/25 14:39 Glucagon Inj 1 Mg Vial IM Q15MIN PRN BG <70, and no IV access Heparin Sodium (Porcine) 5,000 unit 09/13/25 14:00 09/14/25 06:18 Heparin Sod Inj 5000 Unit/Ml Vial SC 09/27/25 13:59 5,000 unit Q8HR NATALIE Administration Norepinephrine/Dextrose 8 mg in 250 mls @ 12.909 mls/hr 09/12/25 08:15 09/13/25 06:20 Levophed In D5w 8mg/250ml IV 10/12/25 08:14 0 mcg/kg/min .[id number] PRN 0 mls/hr PER PROTOCOL Titration Protocol 0.15 MCG/KG/MIN Insulin Degludec 15 unit 09/13/25 09:00 09/14/25 12:31 Insulin Degludec 5 Unit/0.05 Ml (Per 5 Units) SC 10/13/25 08:59 15 unit QDAY NATALIE Administration Insulin Human Lispro 0 unit 09/13/25 07:45 09/14/25 12:30 Insulin Lispro (Admelog) 1 Unit/0.01 Ml Unit SC 10/13/25 07:44 4 unit AC NATALIE Administration Protocol Metoprolol Succinate 25 mg 09/14/25 11:45 09/14/25 12:52 Metoprolol Succinate Xl 25 Mg Tabcr PO 10/14/25 11:44 25 mg QDAY NATALIE Administration Ondansetron HCl 4 mg 09/11/25 14:20 Ondansetron Inj 2 Mg/Ml Inj 2 Ml IVP 10/11/25 14:19 Q6H PRN NAUSEA OR VOMITING Protocol Pantoprazole Sodium 40 mg 09/12/25 09:00 09/14/25 08:25 Pantoprazole Inj 40 Mg Vial IVP 10/12/25 08:59 40 mg QDAY NATALIE Administration Spironolactone 25 mg 09/14/25 13:45 Spironolactone 25 Mg Tablet PO 10/14/25 13:44 DAILY NATALIE Plan 65-year-old female with past medical history of diabetes and left lower extremity DVT December 2024 who was previously on Eliquis, but was on hold since the of this month due to schedule right knee arthroplasty on 09/11/2025 was upgraded to the ICU on 09/11/2025 due to STEMI complicated by third-degree AV block along with mild DKA. Patient downgraded to floors for further management on 09/14 after stabilization. #STEMI s/p stent #Third-degree AV block Patient denies any chest pain or shortness of breath only complaining of some nausea and epigastric pain. Patient found to have ST elevations on EKG on leads V1 through V along with some T wave inversions in lead I. Bedside ultrasound showed wall motion abnormalities with possible decreased EF, but official echo taken and pending read. Patient was attempted to be transferred for stat heart cath, but no accepting facilities at that time. Repeat EKG showed third-degree AV block on admission Troponin levels were 74.18 and downtrended GEORGI score 9 points 35.9% risk of all-cause mortality at 30 days Underwent successful heart cath with stent placement in LAD and discussed with cardiology if RCA had any disease, but stated no disease in RCA. Patient off heparin drip, transvenous pacing is continued, heart rate stable in the 80s. Patient stable for downgrade to floors for further management. - DAPT - Metoprolol succinate 25 mg daily - Atorvastatin 80 at bedtime - Cardiology following, appreciate recommendations #Shock, resolved #HFrEF (20%) Most likely cardiogenic in the setting of STEMI and HFrEF (20%) Patient's heart did show occlusion of the LAD and was successfully stented, but also showed an EF of 20%. Patient was placed on Levophed, but currently off Levophed. - Lasix 40 daily - Metoprolol succinate 25 mg daily - Spironolactone 25 mg daily - Consider starting VAMSI or ARB tomorrow if blood pressure allows - Patient will need LifeVest upon discharge - Patient also need outpatient workup for defibrillator as primary prevention given EF less than 30. #Mild DKA, resolved #Diabetes, patient history Patient presented to ED with blood glucose greater than 500. Mild DKA, beta-hydroxybutyrate 2.8. Resolved without need for insulin drip, blood glucose currently stable. Nonacidic. hA1C 8.3% as of 09/11/2025. - Degludec 15 units daily and ISS. #Transaminitis, improving likely in the setting of hypoperfusion vs congestion 2/2 HFrEF AST 75 and ALT 136 today, improving - Follow up on LFT's daily #Normocytic normochromic anemia, stable Patient's hemoglobin 10.5-->9.1 No active signs of bleeding at this time - Follow CBC #Asymptomatic bacteriuria Patient's UA was positive for bacteria however patient does not currently have any urinary symptoms Procal 1.31, likely 2/2 to cardiogenic shock as no symptoms either respiratory or urinary Ceftriaxone x1 given. - No further management at this time. DVT prophylaxis: Heparin GI prophylaxis: Protonix Diet: Carb consistent low Lines: Peripheral IV, Pinzon cath Code status: Full code Plan of care discussed with attending Dr. Robles. Irvin Brown MD PGY?2 Attending Provider Attestation/Addendum I have seen and examined the patient. I was physically present for the laureano portions of the services provided including history, physical exam, diagnosis, treatment plans and orders. I agree with assessment and plan of care as documented by residents. Even though this this note was carefully revised there may still be minor errors in supervisor wood crew due to voice recognition software. Venkatesh Robles MD
[2025-09-14] MEDS: SPIRONOLACTONE 25 MG TABLET PO (16:20)
[2025-09-14] MEDS: HYDROcodone/APAP 5/325 TABLET 1 TAB PO (21:07)
[2025-09-14] MEDS: MELATONIN 3 MG TABLET 6 MG PO (21:07)
[2025-09-14] MEDS: ATORVASTATIN CALCIUM 20 MG TABLET 80 MG PO (21:07)
[2025-09-15] VITALS (14 sets, daily range): BP systolic 76–111; BP diastolic 50–69; PULSE 74–99; RESP 15–98; TEMP 36.1–36.4; O2SAT 95–100; BMI 19.8
[2025-09-15] MEDS: RINGERS LACTATED 500 ML 500 ML 999 ML IV (00:11)
[2025-09-15] MEDS: MIDODRINE 5 MG TABLET 10 MG PO (01:24)
--- NOTE | 2025-09-15 01:26 | PD.RESEVENT ---
Documentation for date of: 09/15/25 Event Note Event Note: RR at 12AM due to hypotension Patient was laying comfortably in bed smiling. No distress, AOx3. BP 80/54 with MAP 63. Afebrile, 95%o2 on room air, blood sugar 94. She was given 500 cc bolus of LR and midodrine 10mg x1. Noted that she was started on metoprolol 25 mg and spironolactone 25mg which may be cause of the hypotension. Metoprolol order was held. Vibha Mclain, PGY-2
[2025-09-15] MEDS: HEPARIN SOD INJ 5000 UNIT/ML VIAL SC ×3 (05:36→21:00)
[2025-09-15 05:46] LABS: Basophils # (Auto) 0.0 Thou/mm3 (0.0-0.2); Basophils % (Auto) 0 % (0-2.5); Eosinophils # (Auto) 0.1 Thou/mm3 (0.0-0.5); Eosinophils % (Auto) 1 % (0-10); Hematocrit 27.2 % (36.0-46.0); Hemoglobin 9.2 g/dL (12.0-16.0); Immature Granulocytes Auto 0.02 Thou/mm3 (0.00-0.00); Lymphocytes # (Auto) 2.0 Thou/mm3 (1.0-4.8); Lymphocytes % (Auto) 23 % (10-50); Mean Corpuscular HGB Conc 33.8 g/dl (31.0-37.0); Mean Corpuscular Hemoglobin 30.2 pg (25.0-35.0); Mean Corpuscular Volume 89 fL (80-100); Monocytes # (Auto) 0.7 Thou/mm3 (0.0-0.8); Monocytes % (Auto) 8 % (0-12); Neutrophils # (Auto) 5.7 Thou/mm3 (1.8-7.7); Neutrophils % (Auto) 67 % (37-80); Nucleated Red Blood Cell # 0.00 Thou/mm3 (0.00-0.00); Nucleated Red Blood Cell % 0 /100 WBC (0); Platelet Count 247 Thou/mm3 (140-440); RDW Standard Deviation 43.7 fL (36.4-46.3); Red Blood Count 3.05 Miln/mm3 (4.00-5.20); White Blood Count 8.5 Thou/mm3 (3.6-11.0)
[2025-09-15 06:30] LABS: Alanine Aminotransferase 101 U/L (10-49); Albumin, Serum 3.4 gm/dL (3.4-4.8); Albumin/Globulin Ratio 1.5 (1.2-2.2); Alkaline Phosphatase 108 U/L (46-116); Anion Gap 9 (7-16); Aspartate Amino Transferase 41 U/L (0-34); BUN/Creatinine Ratio 32 Ratio (12-20); Bilirubin,Total 0.4 mg/dL (0.3-1.2); Blood Urea Nitrogen 19 mg/dL (9-23); Calcium 8.0 mg/dL (8.3-10.6); Calcium (Corrected) 8.5 mg/dL (8.5-10.1); Carbon Dioxide 23.7 mMol/L (20.0-31.0); Chloride 105 mMol/L (98-107); Creatinine (Component) 0.6 mg/dL (0.6-1.3); Estimated Creatinine Clearance 67.1 mL/min (>60); Globulin 2.3 gm/dL (2.3-3.5); Glucose 73 mg/dL (74-106); Magnesium 2.0 mg/dL (1.6-2.6); Osmolality,Calculated 276 (275-295); Potassium 3.7 mMol/L (3.4-5.1); Sodium 138 mMol/L (136-145); Total Protein 5.7 gm/dL (5.7-8.2); eGFR > 60 See Note
--- NOTE | 2025-09-15 08:07 | ESPR_ITS ---
<Statement entered by Irvin Brown MD - 09/16/25 14:34> Patient seen and examined at bedside. I discussed and supervised with the credit intern physician who took care of this patient. I personally saw and examined the patient. I agree with most of the assessment and plan. Plan of care discussed with attending Dr. Robles. Irvin Brown MD PGY-2 Documentation for date of: 09/15/25 Subjective Subjective Interval history: Overnight patient had a rapid response at 12 AM due to hypotension, patient was asymptomatic, AO x 3.? BP 80/54 MAP 63 95% RA blood sugar 94.? Given 500 cc bolus LR and midodrine 10 mg x 1.? Patient was started on metoprolol 25 mg spironolactone 25 mg a day.? Morning metoprolol held. Discontinue Lasix 40 mg IV daily. Patient felt well this morning. Denied chest pain, palpitation, shortness of breath. No edema bilaterally on lower extremity. Patient endorses muscular pain in the rib cage that was getting better. ICU, following, appreciate recs: Start metoprolol succinate 25 mg daily milligram daily pressure allows today.? Upon discharge, patient will need a LifeVest and outpatient workup for possible defibrillator due to EF<30%. [facility], Dr. Lyles, following: s/p removed temporary pacemaker on 09/14, consulted for further recs regarding medications, appreciate recs. Exam Vital Signs Temp Pulse Resp BP Pulse Ox O2 Del Method O2 Flow Rate 96.9 F 82 17 95/63 98 Room Air 2 09/15/25 04:00 09/15/25 04:00 09/15/25 04:00 09/15/25 04:00 09/15/25 04:00 09/15/25 04:00 09/13/25 20:11 FiO2 2 09/12/25 04:16 Narrative Exam Gen: Well-developed and well-nourished. HEENT: NCAT, PERRLA, EOMI, MMM, anicteric conjunctivae. CVS: normal S1 and S2. RRR. No M/R/G. Resp: CTA B/L. No rhonchi, rales, crackles or wheezing. Abd: soft, non-tender, non-distended. BS+ in all 4 quadrants. MSK: Good ROM in BUE & BLE. No edema or rash. Neuro: CN II-XII grossly intact. Strength 5/5 in BUE & BLE. Alert and oriented x3. Psych: appropriate mood and affect. Objective Labs 09/17/25 04:34 09/17/25 04:34 Labs: Laboratory Results - last 24 hr 09/14/25 09/15/25 14:00 05:25 WBC 8.5 RBC 3.05 L Hgb 9.2 L Hct 27.2 L MCV 89 MCH 30.2 MCHC 33.8 RDW Std Deviation 43.7 Plt Count 247 D Neut % (Auto) 67 Lymph % (Auto) 23 [place] % (Auto) 8 Eos % (Auto) 1 Baso % (Auto) 0 Neut # (Auto) 5.7 Lymph # (Auto) 2.0 [place] # (Auto) 0.7 Eos # (Auto) 0.1 Baso # (Auto) 0.0 Immature Gran # (Auto) 0.02 H Absolute Nucleated RBC 0.00 Immature Gran % 0 Nucleated RBC % 0 Sodium 138 138 Potassium 4.2 D 3.7 D Chloride 105 105 Carbon Dioxide 23.2 23.7 Anion Gap 10 9 BUN 17 19 Creatinine 0.8 0.6 Estim Creat Clear Calc 50.4 L 67.1 eGFR > 60 > 60 BUN/Creatinine Ratio 21 H 32 H Glucose 147 H D 73 L D Calculated Osmolality 280 276 Calcium 8.0 L 8.0 L Corrected Calcium 8.3 L 8.5 Phosphorus 2.4 Magnesium 2.0 Total Bilirubin 0.4 AST 41 H ALT 101 H Alkaline Phosphatase 108 Total Protein 5.7 Albumin 3.6 3.4 Globulin 2.3 Albumin/Globulin Ratio 1.5 ABG Interpretation ABG results: 09/11/25 09/11/25 09/11/25 11:35 14:50 18:21 ABG pH ABG pCO2 ABG pO2 ABG HCO3 ABG O2 Saturation ABG Base Excess VBG pH 7.39 7.50 7.45 VBG pCO2 31 L 21 L D 26 L VBG pO2 25 55 D 35 D VBG Base Excess -5 L -5 L -5 L 09/11/25 09/11/25 09/12/25 19:56 22:29 04:45 ABG pH 7.52 H ABG pCO2 22 L ABG pO2 60 L ABG HCO3 18 L ABG O2 Saturation 94 ABG Base Excess -4 L VBG pH 7.40 7.41 VBG pCO2 33 L 28 L VBG pO2 27 31 VBG Base Excess -4 L -6 L 09/12/25 09/12/25 09/12/25 11:10 11:27 14:14 ABG pH 7.44 ABG pCO2 25 L ABG pO2 71 L ABG HCO3 17 L ABG O2 Saturation 95 ABG Base Excess -6 L VBG pH 7.32 L 7.42 VBG pCO2 32 L 27 L VBG pO2 57 D 79 H D VBG Base Excess -9 L -6 L 09/12/25 18:58 ABG pH ABG pCO2 ABG pO2 ABG HCO3 ABG O2 Saturation ABG Base Excess VBG pH Cancelled VBG pCO2 Cancelled VBG pO2 Cancelled VBG Base Excess Cancelled Quality Measures Quality Measures VTE prophylaxis Advance care planning discussed with:: patient Assessment & Plan Assessment Current Active Medications: Generic Name Dose Route Start Last Admin Trade Name Freq PRN Reason Stop Dose Admin Acetaminophen 650 mg 09/11/25 14:15 Acetaminophen 325 Mg Tablet PO 10/11/25 14:14 Q6H PRN fever >100 or pain 1-3/10 Hydrocodone Bitart/Acetaminophen 1 tab 09/11/25 14:39 09/14/25 21:07 Hydrocodone/Apap 5/325 Tablet PO 09/16/25 14:19 1 tab Q4HR PRN Administration PAIN SCALE 4-10(Mod-Sev Aspirin 81 mg 09/13/25 09:00 09/14/25 08:25 Aspirin Ec 81 Mg Tabec PO 10/13/25 08:59 81 mg QDAY NATALIE Administration Atorvastatin Calcium 80 mg 09/11/25 21:00 09/14/25 21:07 Atorvastatin Calcium 20 Mg Tablet PO 10/11/25 20:59 80 mg HS NATALIE Administration Calcium Carbonate 600 mg 09/14/25 09:00 09/14/25 08:25 Calcium Carbonate 600 Mg Tablet PO 10/14/25 08:59 600 mg QDAY NATALIE Administration Clopidogrel Bisulfate 75 mg 09/13/25 09:00 09/14/25 08:25 Clopidogrel Bisulfate 75 Mg Tablet PO 10/13/25 08:59 75 mg QDAY NATALIE Administration Dextrose 25 ml 09/11/25 14:39 Dextrose 50%-Water Inj 50 Ml Syringe IV 10/11/25 14:38 Q15MIN PRN BG 50-70 responsive npo pt Dextrose 50 ml 09/11/25 14:39 Dextrose 50%-Water Inj 50 Ml Syringe IV 10/11/25 14:38 Q15MIN PRN BG <50 OR BG <70 & pt unresponsive Furosemide 40 mg 09/13/25 10:15 09/14/25 08:26 Furosemide Inj 10 Mg/Ml 4ml Vial IVP 10/13/25 10:14 40 mg QDAY NATALIE Administration Glucagon 1 mg 09/11/25 14:39 Glucagon Inj 1 Mg Vial IM Q15MIN PRN BG <70, and no IV access Heparin Sodium (Porcine) 5,000 unit 09/13/25 14:00 09/15/25 05:36 Heparin Sod Inj 5000 Unit/Ml Vial SC 09/27/25 13:59 5,000 unit Q8HR NATALIE Administration Insulin Degludec 15 unit 09/13/25 09:00 09/14/25 12:31 Insulin Degludec 5 Unit/0.05 Ml (Per 5 Units) SC 10/13/25 08:59 15 unit QDAY NATALIE Administration Insulin Human Lispro 0 unit 09/13/25 07:45 09/14/25 17:24 Insulin Lispro (Admelog) 1 Unit/0.01 Ml Unit SC 10/13/25 07:44 Not Given AC [facility] Protocol Metoprolol Succinate 25 mg 09/14/25 11:45 09/14/25 12:52 Metoprolol Succinate Xl 25 Mg Tabcr PO 10/14/25 11:44 25 mg On Hold: 09/15/25 01:30 QDAY NATALIE Administration Ondansetron HCl 4 mg 09/11/25 14:20 Ondansetron Inj 2 Mg/Ml Inj 2 Ml IVP 10/11/25 14:19 Q6H PRN NAUSEA OR VOMITING Protocol Pantoprazole Sodium 40 mg 09/15/25 09:00 Pantoprazole 40 Mg Tablet PO 10/15/25 08:59 QDAY NATALIE Spironolactone 25 mg 09/14/25 13:45 09/14/25 16:20 Spironolactone 25 Mg Tablet PO 10/14/25 13:44 25 mg DAILY NATALIE Administration Plan 65-year-old female with past medical history of diabetes and left lower extremity DVT December 2024 who was previously on Eliquis, but was on hold since the of this month due to schedule right knee arthroplasty on 09/11/2025 was upgraded to the ICU on 09/11/2025 due to STEMI complicated by third-degree AV block along with mild DKA. Patient downgraded to floors for further management on 09/14 after stabilization. #STEMI s/p stent #Third-degree AV block Patient denies any chest pain or shortness of breath only complaining of some nausea and epigastric pain. Patient found to have ST elevations on EKG on leads V1 through V along with some T wave inversions in lead I. Bedside ultrasound showed wall motion abnormalities with possible decreased EF, but official echo taken and pending read. Patient was attempted to be transferred for stat heart cath, but no accepting facilities at that time. Repeat EKG showed third-degree AV block on admission Troponin levels were 74.18 and downtrended GEORGI score 9 points 35.9% risk of all-cause mortality at 30 days Underwent successful heart cath with stent placement in LAD and discussed with cardiology if RCA had any disease, but stated no disease in RCA. Patient off heparin drip, transvenous pacing is continued, heart rate stable in the 80s. Patient stable for downgrade to floors for further management. - DAPT - Hold Metoprolol succinate 25 mg daily - Atorvastatin 80 at bedtime - Cardiology following, appreciate recommendations #Shock, resolved #HFrEF (20%) Most likely cardiogenic in the setting of STEMI and HFrEF (20%) Patient's heart did show occlusion of the LAD and was successfully stented, but also showed an EF of 20%. Patient was placed on Levophed, but currently off Levophed. - Discontinue Lasix 40 daily - Hold Metoprolol succinate 25 mg daily - Spironolactone 25 mg daily - Consider starting VAMSI or ARB if blood pressure allows - Patient will need LifeVest upon discharge - Patient also need outpatient workup for defibrillator as primary prevention given EF less than 30. #Mild DKA, resolved #Diabetes, patient history Patient presented to ED with blood glucose greater than 500. Mild DKA, beta- hydroxybutyrate 2.8. Resolved without need for insulin drip, blood glucose currently stable. Nonacidic. hA1C 8.3% as of 09/11/2025. - Decrease Degludec 15 units to 10 units daily and ISS. #Transaminitis, improving likely in the setting of hypoperfusion vs congestion 2/2 HFrEF AST and ALT improving - Follow up on LFT's daily #Normocytic normochromic anemia, stable Patient's hemoglobin 10.5-->9.12 No active signs of bleeding at this time - Follow CBC #Asymptomatic bacteriuria Patient's UA was positive for bacteria however patient does not currently have any urinary symptoms Procal 1.31, likely 2/2 to cardiogenic shock as no symptoms either respiratory or urinary Ceftriaxone x1 given. - No further management at this time. DVT prophylaxis: Heparin GI prophylaxis: Protonix Diet: Carb consistent low Lines: Peripheral IV, Pinzon cath Code status: Full code Assessment and plan discussed with my attending physician Dr. Robles and Dr. Brown (PGY-2). Dr. Astorga (PGY-1) ? residential child care counselor Attending Provider Attestation/Addendum I have seen and examined the patient. I was physically present for the laureano portions of the services provided including history, physical exam, diagnosis, treatment plans and orders. I agree with assessment and plan of care as documented by residents. Even though this this note was carefully revised there may still be minor errors in independent trader due to voice recognition software. Venkatesh Robles MD
[2025-09-15] MEDS: SPIRONOLACTONE 25 MG TABLET PO (08:48)
[2025-09-15] MEDS: CALCIUM CARBONATE 600 MG TABLET PO (08:49)
[2025-09-15] MEDS: ASPIRIN EC 81 MG TABEC PO (08:49)
[2025-09-15] MEDS: CLOPIDOGREL BISULFATE 75 MG TABLET PO (08:49)
[2025-09-15] MEDS: PANTOPRAZOLE 40 MG TABLET PO (08:49)
--- NOTE | 2025-09-15 11:18 | PD.IMPROG ---
Documentation for date of: 09/15/25 Subjective Subjective Interval history: Patient comfortable no chest pain noted Exam Vital Signs Temp Pulse Resp BP Pulse Ox O2 Del Method O2 Flow Rate 97.4 F 74 21 H 101/58 L 99 Room Air 2 09/15/25 08:00 09/15/25 08:48 09/15/25 08:13 09/15/25 08:48 09/15/25 08:00 09/15/25 08:00 09/13/25 20:11 FiO2 2 09/12/25 04:16 Objective Labs 09/15/25 05:25 09/15/25 05:25 Labs: Laboratory Results - last 24 hr 09/14/25 09/15/25 14:00 05:25 WBC 8.5 RBC 3.05 L Hgb 9.2 L Hct 27.2 L MCV 89 MCH 30.2 MCHC 33.8 RDW Std Deviation 43.7 Plt Count 247 D Neut % (Auto) 67 Lymph % (Auto) 23 [place] % (Auto) 8 Eos % (Auto) 1 Baso % (Auto) 0 Neut # (Auto) 5.7 Lymph # (Auto) 2.0 [place] # (Auto) 0.7 Eos # (Auto) 0.1 Baso # (Auto) 0.0 Immature Gran # (Auto) 0.02 H Absolute Nucleated RBC 0.00 Immature Gran % 0 Nucleated RBC % 0 Sodium 138 138 Potassium 4.2 D 3.7 D Chloride 105 105 Carbon Dioxide 23.2 23.7 Anion Gap 10 9 BUN 17 19 Creatinine 0.8 0.6 Estim Creat Clear Calc 50.4 L 67.1 eGFR > 60 > 60 BUN/Creatinine Ratio 21 H 32 H Glucose 147 H D 73 L D Calculated Osmolality 280 276 Calcium 8.0 L 8.0 L Corrected Calcium 8.3 L 8.5 Phosphorus 2.4 Magnesium 2.0 Total Bilirubin 0.4 AST 41 H ALT 101 H Alkaline Phosphatase 108 Total Protein 5.7 Albumin 3.6 3.4 Globulin 2.3 Albumin/Globulin Ratio 1.5 ABG Interpretation ABG results: 09/11/25 09/11/25 09/11/25 11:35 14:50 18:21 ABG pH ABG pCO2 ABG pO2 ABG HCO3 ABG O2 Saturation ABG Base Excess VBG pH 7.39 7.50 7.45 VBG pCO2 31 L 21 L D 26 L VBG pO2 25 55 D 35 D VBG Base Excess -5 L -5 L -5 L 09/11/25 09/11/25 09/12/25 19:56 22:29 04:45 ABG pH 7.52 H ABG pCO2 22 L ABG pO2 60 L ABG HCO3 18 L ABG O2 Saturation 94 ABG Base Excess -4 L VBG pH 7.40 7.41 VBG pCO2 33 L 28 L VBG pO2 27 31 VBG Base Excess -4 L -6 L 09/12/25 09/12/25 09/12/25 11:10 11:27 14:14 ABG pH 7.44 ABG pCO2 25 L ABG pO2 71 L ABG HCO3 17 L ABG O2 Saturation 95 ABG Base Excess -6 L VBG pH 7.32 L 7.42 VBG pCO2 32 L 27 L VBG pO2 57 D 79 H D VBG Base Excess -9 L -6 L 09/12/25 18:58 ABG pH ABG pCO2 ABG pO2 ABG HCO3 ABG O2 Saturation ABG Base Excess VBG pH Cancelled VBG pCO2 Cancelled VBG pO2 Cancelled VBG Base Excess Cancelled Assessment & Plan A&P Narrative Ambulate the patient Continue dual antiplatelet agent Time Spent With Patient Time: Total time spent is greater than 50% in coordination of care (as documented) at patient's floor/unit and/or counseling patient:
--- NOTE | 2025-09-15 14:33 | PC.SS ---
Rounding note: had rapid last night, pending cardio recommendation, possible d/c tomorrow.
[2025-09-15] MEDS: INSULIN LISPRO (AdmeLOG) 1 UNIT/0.01 ML UNIT SC (16:23)
[2025-09-15] MEDS: HYDROcodone/APAP 5/325 TABLET 1 TAB PO (20:56)
[2025-09-15] MEDS: MELATONIN 3 MG TABLET 6 MG PO (20:56)
[2025-09-15] MEDS: ATORVASTATIN CALCIUM 20 MG TABLET 80 MG PO (20:56)
[2025-09-16] VITALS (11 sets, daily range): BP systolic 90–115; BP diastolic 57–68; PULSE 78–109; RESP 16–100; TEMP 36.1–36.4; O2SAT 94–99; BMI 19.8
[2025-09-16] MEDS: HEPARIN SOD INJ 5000 UNIT/ML VIAL SC ×3 (05:08→21:13)
[2025-09-16 05:53] LABS: Basophils # (Auto) 0.0 Thou/mm3 (0.0-0.2); Basophils % (Auto) 0 % (0-2.5); Eosinophils # (Auto) 0.1 Thou/mm3 (0.0-0.5); Eosinophils % (Auto) 2 % (0-10); Hematocrit 27.2 % (36.0-46.0); Hemoglobin 9.3 g/dL (12.0-16.0); Immature Granulocytes Auto 0.02 Thou/mm3 (0.00-0.00); Lymphocytes # (Auto) 2.0 Thou/mm3 (1.0-4.8); Lymphocytes % (Auto) 29 % (10-50); Mean Corpuscular HGB Conc 34.2 g/dl (31.0-37.0); Mean Corpuscular Hemoglobin 30.4 pg (25.0-35.0); Mean Corpuscular Volume 89 fL (80-100); Monocytes # (Auto) 0.6 Thou/mm3 (0.0-0.8); Monocytes % (Auto) 8 % (0-12); Neutrophils # (Auto) 4.2 Thou/mm3 (1.8-7.7); Neutrophils % (Auto) 60 % (37-80); Nucleated Red Blood Cell # 0.00 Thou/mm3 (0.00-0.00); Nucleated Red Blood Cell % 0 /100 WBC (0); Platelet Count 239 Thou/mm3 (140-440); RDW Standard Deviation 42.5 fL (36.4-46.3); Red Blood Count 3.06 Miln/mm3 (4.00-5.20); White Blood Count 6.9 Thou/mm3 (3.6-11.0)
[2025-09-16 06:20] LABS: Alanine Aminotransferase 71 U/L (10-49); Albumin, Serum 3.5 gm/dL (3.4-4.8); Albumin/Globulin Ratio 1.5 (1.2-2.2); Alkaline Phosphatase 112 U/L (46-116); Anion Gap 10 (7-16); Aspartate Amino Transferase 26 U/L (0-34); BUN/Creatinine Ratio 26 Ratio (12-20); Bilirubin,Total 0.3 mg/dL (0.3-1.2); Blood Urea Nitrogen 18 mg/dL (9-23); Calcium 8.2 mg/dL (8.3-10.6); Calcium (Corrected) 8.6 mg/dL (8.5-10.1); Carbon Dioxide 22.7 mMol/L (20.0-31.0); Chloride 103 mMol/L (98-107); Creatinine (Component) 0.7 mg/dL (0.6-1.3); Estimated Creatinine Clearance 5.9 mL/min (>60); Globulin 2.3 gm/dL (2.3-3.5); Glucose 231 mg/dL (74-106); Magnesium 2.0 mg/dL (1.6-2.6); Osmolality,Calculated 280 (275-295); Potassium 4.3 mMol/L (3.4-5.1); Sodium 136 mMol/L (136-145); Total Protein 5.8 gm/dL (5.7-8.2); eGFR > 60 See Note
[2025-09-16] MEDS: INSULIN DEGLUDEC 5 UNIT/0.05 ML (PER 5 UNITS) 10 UNIT SC (08:15)
[2025-09-16] MEDS: INSULIN LISPRO (AdmeLOG) 1 UNIT/0.01 ML UNIT SC ×3 (08:15→17:47)
[2025-09-16] MEDS: ASPIRIN EC 81 MG TABEC PO (08:16)
[2025-09-16] MEDS: Magnesium Sulfate 2 GM Ivpb 2 GM/50 ML BAG IV (08:16)
[2025-09-16] MEDS: SPIRONOLACTONE 25 MG TABLET PO (08:16)
[2025-09-16] MEDS: CLOPIDOGREL BISULFATE 75 MG TABLET PO (08:16)
[2025-09-16] MEDS: PANTOPRAZOLE 40 MG TABLET PO (08:16)
[2025-09-16] MEDS: CALCIUM CARBONATE 600 MG TABLET PO (08:16)
--- NOTE | 2025-09-16 08:50 | PC.SS ---
Follow up note: Cardio recommendations pending. Pt will return home upon dc.
--- NOTE | 2025-09-16 12:18 | PC.PT ---
Patient is safe to ambulate to the bathroom and in the halls with 1 staff and no AD. RN made aware.
--- NOTE | 2025-09-16 12:58 | PD.IMPROG ---
Documentation for date of: 09/16/25 Subjective Subjective Interval history: Patient is stable denies any chest pain Status post PCI to the LAD Exam Vital Signs Temp Pulse Resp BP Pulse Ox O2 Del Method O2 Flow Rate 97.0 F 90 20 97/68 96 Room Air 2 09/16/25 08:00 09/16/25 09:57 09/16/25 09:57 09/16/25 08:16 09/16/25 08:00 09/16/25 08:00 09/13/25 20:11 FiO2 2 09/12/25 04:16 Routine HEENT Exam Head: Present normocephalic and atraumatic Eye: Present EOMI and PERRL ENT: Present mucous membranes moist Routine Neck Exam Neck: Present supple and trachea midline Routine Respiratory Exam Respiratory: Present chest non-tender, lungs clear, normal breath sounds and no resp distress Routine Cardiovascular Exam Cardiovascular: Present RRR Routine Abdominal Exam Abdominal: Present soft and normoactive bowel sounds Routine Extremities Exam Extremities: Present full ROM Routine Skin Exam Skin: Present intact, dry and warm Routine Neurological Exam Neurological: Present alert, oriented X3 and CN II-XII intact Routine Psychiatric Exam Psychiatric: Present normal affect and normal thought process Objective Labs 09/16/25 04:30 09/16/25 04:30 Labs: Laboratory Results - last 24 hr 09/16/25 04:30 WBC 6.9 RBC 3.06 L Hgb 9.3 L Hct 27.2 L MCV 89 MCH 30.4 MCHC 34.2 RDW Std Deviation 42.5 Plt Count 239 Neut % (Auto) 60 Lymph % (Auto) 29 [place] % (Auto) 8 Eos % (Auto) 2 Baso % (Auto) 0 Neut # (Auto) 4.2 Lymph # (Auto) 2.0 [place] # (Auto) 0.6 Eos # (Auto) 0.1 Baso # (Auto) 0.0 Immature Gran # (Auto) 0.02 H Absolute Nucleated RBC 0.00 Immature Gran % 0 Nucleated RBC % 0 Sodium 136 Potassium 4.3 D Chloride 103 Carbon Dioxide 22.7 Anion Gap 10 BUN 18 Creatinine 0.7 Estim Creat Clear Calc 5.9 L eGFR > 60 BUN/Creatinine Ratio 26 H Glucose 231 H D Calculated Osmolality 280 Calcium 8.2 L Corrected Calcium 8.6 Magnesium 2.0 Total Bilirubin 0.3 AST 26 ALT 71 H Alkaline Phosphatase 112 Total Protein 5.8 Albumin 3.5 Globulin 2.3 Albumin/Globulin Ratio 1.5 ABG Interpretation ABG results: 09/11/25 09/11/25 09/11/25 11:35 14:50 18:21 ABG pH ABG pCO2 ABG pO2 ABG HCO3 ABG O2 Saturation ABG Base Excess VBG pH 7.39 7.50 7.45 VBG pCO2 31 L 21 L D 26 L VBG pO2 25 55 D 35 D VBG Base Excess -5 L -5 L -5 L 09/11/25 09/11/25 09/12/25 19:56 22:29 04:45 ABG pH 7.52 H ABG pCO2 22 L ABG pO2 60 L ABG HCO3 18 L ABG O2 Saturation 94 ABG Base Excess -4 L VBG pH 7.40 7.41 VBG pCO2 33 L 28 L VBG pO2 27 31 VBG Base Excess -4 L -6 L 09/12/25 09/12/25 09/12/25 11:10 11:27 14:14 ABG pH 7.44 ABG pCO2 25 L ABG pO2 71 L ABG HCO3 17 L ABG O2 Saturation 95 ABG Base Excess -6 L VBG pH 7.32 L 7.42 VBG pCO2 32 L 27 L VBG pO2 57 D 79 H D VBG Base Excess -9 L -6 L 09/12/25 18:58 ABG pH ABG pCO2 ABG pO2 ABG HCO3 ABG O2 Saturation ABG Base Excess VBG pH Cancelled VBG pCO2 Cancelled VBG pO2 Cancelled VBG Base Excess Cancelled Assessment & Plan A&P Narrative Ambulate the patient Continue dual antiplatelet agent Time Spent With Patient Time: Total time spent is greater than 50% in coordination of care (as documented) at patient's floor/unit and/or counseling patient:
--- NOTE | 2025-09-16 13:30 | ESPR_ITS ---
<Statement entered by Irvin Brown MD - 09/16/25 17:31> Patient seen and examined at bedside. I discussed and supervised with the internet marketing strategist physician who took care of this patient. I personally saw and examined the patient. I agree with most of the assessment and plan. Patient reports no symptoms. Blood pressure remains soft. Received spironolactone this morning, will hold tomorrows dose. Continue to optimize medications, will attempt to initiate beta abilio tomorrow. Ordered Lifevest for discharge. Plan of care discussed with attending Dr. Gomez. Irvin Brown MD PGY-2 Documentation for date of: 09/16/25 Subjective Subjective Interval history: Patient was seen and examined at bedside. No acute events took place overnight. Patient felt well this morning. Was complaining of SOB earlier in the day due to being bed bound. PT to evaluate and take the pt to short walks on hospital floor. Denied chest pain, palpitation, shortness of breath. No edema bilaterally on lower extremity. Exam Vital Signs Temp Pulse Resp BP Pulse Ox O2 Del Method O2 Flow Rate 97.3 F 105 H 18 115/67 96 Room Air 2 09/16/25 12:00 09/16/25 12:00 09/16/25 12:00 09/16/25 12:00 09/16/25 12:00 09/16/25 12:00 09/13/25 20:11 FiO2 2 09/12/25 04:16 Narrative Exam Gen: Well-developed and well-nourished. HEENT: NCAT, PERRLA, EOMI, MMM, anicteric conjunctivae. CVS: normal S1 and S2. RRR. No M/R/G. Resp: CTA B/L. No rhonchi, rales, crackles or wheezing. Abd: soft, non-tender, non-distended. BS+ in all 4 quadrants. MSK: Good ROM in BUE & BLE. No edema or rash. Neuro: CN II-XII grossly intact. Strength 5/5 in BUE & BLE. Alert and oriented x3. Psych: appropriate mood and affect. Objective Labs 09/17/25 04:34 09/17/25 04:34 Labs: Laboratory Results - last 24 hr 09/16/25 04:30 WBC 6.9 RBC 3.06 L Hgb 9.3 L Hct 27.2 L MCV 89 MCH 30.4 MCHC 34.2 RDW Std Deviation 42.5 Plt Count 239 Neut % (Auto) 60 Lymph % (Auto) 29 [place] % (Auto) 8 Eos % (Auto) 2 Baso % (Auto) 0 Neut # (Auto) 4.2 Lymph # (Auto) 2.0 [place] # (Auto) 0.6 Eos # (Auto) 0.1 Baso # (Auto) 0.0 Immature Gran # (Auto) 0.02 H Absolute Nucleated RBC 0.00 Immature Gran % 0 Nucleated RBC % 0 Sodium 136 Potassium 4.3 D Chloride 103 Carbon Dioxide 22.7 Anion Gap 10 BUN 18 Creatinine 0.7 Estim Creat Clear Calc 5.9 L eGFR > 60 BUN/Creatinine Ratio 26 H Glucose 231 H D Calculated Osmolality 280 Calcium 8.2 L Corrected Calcium 8.6 Magnesium 2.0 Total Bilirubin 0.3 AST 26 ALT 71 H Alkaline Phosphatase 112 Total Protein 5.8 Albumin 3.5 Globulin 2.3 Albumin/Globulin Ratio 1.5 ABG Interpretation ABG results: 09/11/25 09/11/25 09/11/25 11:35 14:50 18:21 ABG pH ABG pCO2 ABG pO2 ABG HCO3 ABG O2 Saturation ABG Base Excess VBG pH 7.39 7.50 7.45 VBG pCO2 31 L 21 L D 26 L VBG pO2 25 55 D 35 D VBG Base Excess -5 L -5 L -5 L 09/11/25 09/11/25 09/12/25 19:56 22:29 04:45 ABG pH 7.52 H ABG pCO2 22 L ABG pO2 60 L ABG HCO3 18 L ABG O2 Saturation 94 ABG Base Excess -4 L VBG pH 7.40 7.41 VBG pCO2 33 L 28 L VBG pO2 27 31 VBG Base Excess -4 L -6 L 09/12/25 09/12/25 09/12/25 11:10 11:27 14:14 ABG pH 7.44 ABG pCO2 25 L ABG pO2 71 L ABG HCO3 17 L ABG O2 Saturation 95 ABG Base Excess -6 L VBG pH 7.32 L 7.42 VBG pCO2 32 L 27 L VBG pO2 57 D 79 H D VBG Base Excess -9 L -6 L 09/12/25 18:58 ABG pH ABG pCO2 ABG pO2 ABG HCO3 ABG O2 Saturation ABG Base Excess VBG pH Cancelled VBG pCO2 Cancelled VBG pO2 Cancelled VBG Base Excess Cancelled Quality Measures Quality Measures VTE prophylaxis Advance care planning discussed with:: patient Assessment & Plan Assessment Current Active Medications: Generic Name Dose Route Start Last Admin Trade Name Rodnye PRN Reason Stop Dose Admin Acetaminophen 650 mg 09/16/25 09:56 Acetaminophen 325 Mg Tablet PO 10/11/25 14:14 Q6H PRN fever >100 or pain 1-3 Hydrocodone Bitart/Acetaminophen 1 tab 09/11/25 14:39 09/15/25 20:56 Hydrocodone/Apap 5/325 Tablet PO 09/20/25 14:19 1 tab Q4HR PRN Administration PAIN SCALE 4-10(Mod-Sev Aspirin 81 mg 09/13/25 09:00 09/16/25 08:16 Aspirin Ec 81 Mg Tabec PO 10/13/25 08:59 81 mg QDAY NATALIE Administration Atorvastatin Calcium 80 mg 09/11/25 21:00 09/15/25 20:56 Atorvastatin Calcium 20 Mg Tablet PO 10/11/25 20:59 80 mg HS NATALIE Administration Calcium Carbonate 600 mg 09/14/25 09:00 09/16/25 08:16 Calcium Carbonate 600 Mg Tablet PO 10/14/25 08:59 600 mg QDAY NATALIE Administration Clopidogrel Bisulfate 75 mg 09/13/25 09:00 09/16/25 08:16 Clopidogrel Bisulfate 75 Mg Tablet PO 10/13/25 08:59 75 mg QDAY NATALIE Administration Dextrose 25 ml 09/15/25 20:43 Dextrose 50%-Water Inj 50 Ml Syringe IV 10/15/25 20:42 Q15MIN PRN BG 50-70 responsive npo pt Furosemide 40 mg 09/13/25 10:15 09/15/25 08:46 Furosemide Inj 10 Mg/Ml 4ml Vial IVP 10/13/25 10:14 Not Given On Hold: 09/15/25 10:14 QDAY NATALIE Heparin Sodium (Porcine) 5,000 unit 09/13/25 14:00 09/16/25 05:08 Heparin Sod Inj 5000 Unit/Ml Vial SC 09/27/25 13:59 5,000 unit Q8HR NATALIE Administration Insulin Degludec 10 unit 09/16/25 09:00 09/16/25 08:15 Insulin Degludec 5 Unit/0.05 Ml (Per 5 Units) SC 10/16/25 08:59 10 unit QDAY NATALIE Administration Insulin Human Lispro 0 unit 09/13/25 07:45 09/16/25 11:57 Insulin Lispro (Admelog) 1 Unit/0.01 Ml Unit SC 10/13/25 07:44 5 unit AC NATALIE Administration Protocol Melatonin 6 mg 09/15/25 21:00 09/15/25 20:56 Melatonin 3 Mg Tablet PO 10/15/25 20:59 6 mg HS NATALIE Administration Metoprolol Succinate 25 mg 09/14/25 11:45 09/14/25 12:52 Metoprolol Succinate Xl 25 Mg Tabcr PO 10/14/25 11:44 25 mg On Hold: 09/15/25 01:30 QDAY NATALIE Administration Ondansetron HCl 4 mg 09/11/25 14:20 Ondansetron Inj 2 Mg/Ml Inj 2 Ml IVP 10/11/25 14:19 Q6H PRN NAUSEA OR VOMITING Protocol Pantoprazole Sodium 40 mg 09/15/25 09:00 09/16/25 08:16 Pantoprazole 40 Mg Tablet PO 10/15/25 08:59 40 mg QDAY NATALIE Administration Plan 65-year-old female with past medical history of diabetes and left lower extremity DVT December 2024 who was previously on Eliquis, but was on hold since the of this month due to schedule right knee arthroplasty on 09/11/2025 was upgraded to the ICU on 09/11/2025 due to STEMI complicated by third-degree AV block along with mild DKA. Patient downgraded to floors for further management on 09/14 after stabilization. #STEMI s/p stent #Third-degree AV block Patient denies any chest pain or shortness of breath only complaining of some nausea and epigastric pain. Patient found to have ST elevations on EKG on leads V1 through V along with some T wave inversions in lead I. Bedside ultrasound showed wall motion abnormalities with possible decreased EF, but official echo taken and pending read. Patient was attempted to be transferred for stat heart cath, but no accepting facilities at that time. Repeat EKG showed third-degree AV block on admission Troponin levels were 74.18 and downtrended GEORGI score 9 points 35.9% risk of all-cause mortality at 30 days Underwent successful heart cath with stent placement in LAD and discussed with cardiology if RCA had any disease, but stated no disease in RCA. Patient off heparin drip, transvenous pacing is continued, heart rate stable in the 80s. Patient stable for downgrade to floors for further management. - DAPT (09/13 - ) - Hold Metoprolol succinate 25 mg daily - Atorvastatin 80 at bedtime - Cardiology following, appreciate recommendations #Shock, resolved #HFrEF (20%) #Episodic Hypotension Most likely cardiogenic in the setting of STEMI and HFrEF (20%) Patient's heart did show occlusion of the LAD and was successfully stented, but also showed an EF of 20%. Patient was placed on Levophed, but currently off Levophed. 09/14 s/p removed temporary pacemaker. 09/15 Rapid Response called for BP 80/54 and MAP 63. Received LR IVB 0.5L and midodrine 10mg x1. 09/16 BP as low as 90/57 overnight on Aldactone Plan: - Lasix IV 20mg x1 - Hold Metoprolol succinate 25 mg daily - Hold Spironolactone 25 mg daily - Consider starting VAMSI or ARB if blood pressure allows - Patient will need LifeVest upon discharge - Patient also need outpatient workup for defibrillator as primary prevention given EF less than 30. #Diabetes Mellitus, Type II #Mild DKA, resolved Patient presented to ED with blood glucose greater than 500. Mild DKA, beta- hydroxybutyrate 2.8. Resolved without need for insulin drip, blood glucose currently stable. Nonacidic. hA1C 8.3% as of 09/11/2025. - Degludec 10 units daily and ISS. #Transaminitis, improving likely in the setting of hypoperfusion vs congestion 2/2 HFrEF AST and ALT improving - Follow up on LFT's daily #Normocytic normochromic anemia, stable Patient's hemoglobin 10.5-->9.12 No active signs of bleeding at this time - Follow CBC #Asymptomatic bacteriuria Patient's UA was positive for bacteria however patient does not currently have any urinary symptoms Procal 1.31, likely 2/2 to cardiogenic shock as no symptoms either respiratory or urinary Ceftriaxone x1 given. - No further management at this time. DVT prophylaxis: Heparin GI prophylaxis: Protonix Diet: Carb consistent low Lines: Peripheral IV, [place] cath Code status: Full code This case was discussed with my attending physician, Dr. Gomez, and senior resident, Dr Brown. Even though this this note was carefully revised there may still be minor errors in rn family due to voice recognition software. Sheri Oconnell DO PGY I Attending Provider Attestation/Addendum I, Monica Gomez DO, attest that I was physically present for the laureano portions of the service and evaluated the patient with the resident and I reviewed and discussed the case with the resident and agree with the resident's findings and plans of care as documented above Patient seen and eval this a.m. She states that she is feeling well. However, she has some shortness of breath when she lays down. Patient does not appear to be fluid overloaded otherwise. Blood pressure has been low?normal. Will hold spironolactone. If blood pressure permits, will restart low-dose diuretic in addition to goal-directed medical therapy with beta-abilio and VAMSI inhibitor. Case was discussed with cardiology. Recommends LifeVest upon discharge. LifeVest was ordered today by social staff worker. Patient states that she was in [place] and was previously admitted to a hospital in [place] due to left lower extremity DVT. Patient has been on Eliquis for this reason. She states she has a brother who also had a history of DVT. She had denies any personal history of cancer otherwise. Patient at baseline is very active and works. She does not recall any recent travel or long car rides that led to the provocation of the DVT. However, she states that she was admitted for 15 days in [place]. She does not recall if she had any other VTE. She states she may have had a small PE as well. Will obtain records from [place] to further determine length of treatment for DVT and discussed risk of bleeding if patient were taking triple therapy. However, discussed with patient importance of taking aspirin and Plavix due to recent stent placement. Will continue to monitor blood pressure and uptitrate GDMT if tolerated. Pending LifeVest at this time.
[2025-09-16] MEDS: FUROSEMIDE INJ 10 MG/ML VIAL 2 ML 20 MG IVP (17:48)
[2025-09-16] MEDS: HYDROcodone/APAP 5/325 TABLET 1 TAB PO (20:05)
[2025-09-16] MEDS: MELATONIN 3 MG TABLET 6 MG PO (21:13)
[2025-09-16] MEDS: ATORVASTATIN CALCIUM 20 MG TABLET 80 MG PO (21:13)
[2025-09-17] VITALS (7 sets, daily range): BP systolic 90–108; BP diastolic 54–65; PULSE 85–101; RESP 18–97; TEMP 36.1–36.4; O2SAT 95–99
[2025-09-17 05:45] LABS: Basophils # (Auto) 0.0 Thou/mm3 (0.0-0.2); Basophils % (Auto) 0 % (0-2.5); Eosinophils # (Auto) 0.2 Thou/mm3 (0.0-0.5); Eosinophils % (Auto) 2 % (0-10); Hematocrit 26.2 % (36.0-46.0); Immature Granulocytes Auto 0.03 Thou/mm3 (0.00-0.00); Lymphocytes # (Auto) 2.3 Thou/mm3 (1.0-4.8); Lymphocytes % (Auto) 29 % (10-50); Mean Corpuscular HGB Conc 33.2 g/dl (31.0-37.0); Mean Corpuscular Hemoglobin 29.6 pg (25.0-35.0); Mean Corpuscular Volume 89 fL (80-100); Monocytes # (Auto) 0.8 Thou/mm3 (0.0-0.8); Monocytes % (Auto) 10 % (0-12); Neutrophils # (Auto) 4.5 Thou/mm3 (1.8-7.7); Neutrophils % (Auto) 58 % (37-80); Nucleated Red Blood Cell # 0.00 Thou/mm3 (0.00-0.00); Nucleated Red Blood Cell % 0 /100 WBC (0); Platelet Count 285 Thou/mm3 (140-440); RDW Standard Deviation 42.8 fL (36.4-46.3); Red Blood Count 2.94 Miln/mm3 (4.00-5.20); White Blood Count 7.8 Thou/mm3 (3.6-11.0)
[2025-09-17] MEDS: HEPARIN SOD INJ 5000 UNIT/ML VIAL SC ×2 (05:51→13:57)
[2025-09-17 06:23] LABS: Alanine Aminotransferase 54 U/L (10-49); Albumin, Serum 3.5 gm/dL (3.4-4.8); Albumin/Globulin Ratio 1.5 (1.2-2.2); Anion Gap 10 (7-16); Aspartate Amino Transferase 20 U/L (0-34); BUN/Creatinine Ratio 27 Ratio (12-20); Bilirubin,Total 0.3 mg/dL (0.3-1.2); Blood Urea Nitrogen 19 mg/dL (9-23); Calcium 8.8 mg/dL (8.3-10.6); Calcium (Corrected) 9.2 mg/dL (8.5-10.1); Carbon Dioxide 24.8 mMol/L (20.0-31.0); Chloride 104 mMol/L (98-107); Creatinine (Component) 0.7 mg/dL (0.6-1.3); Estimated Creatinine Clearance 54.6 mL/min (>60); Globulin 2.3 gm/dL (2.3-3.5); Glucose 137 mg/dL (74-106); Magnesium 1.9 mg/dL (1.6-2.6); Osmolality,Calculated 281 (275-295); Phosphorous 3.1 mg/dL (2.4-5.1); Potassium 3.9 mMol/L (3.4-5.1); Sodium 139 mMol/L (136-145); Total Protein 5.8 gm/dL (5.7-8.2); eGFR > 60 See Note
[2025-09-17 06:46] LABS: Hemoglobin 8.7 g/dL (12.0-16.0)
[2025-09-17 06:54] LABS: Alkaline Phosphatase 101 U/L (46-116)
--- NOTE | 2025-09-17 08:13 | PD.IMPROG ---
Documentation for date of: 09/17/25 Subjective Subjective Interval history: Patient appears comfortable No further chest pain Severe LV dysfunction Agree with plan for LifeVest before discharge Exam Vital Signs Temp Pulse Resp BP Pulse Ox O2 Del Method O2 Flow Rate 97.0 F 85 20 93/59 L 95 Room Air 2 09/17/25 04:00 09/17/25 04:00 09/17/25 04:00 09/17/25 04:00 09/17/25 04:00 09/17/25 04:00 09/13/25 20:11 FiO2 2 09/12/25 04:16 Routine HEENT Exam Head: Present normocephalic and atraumatic Eye: Present EOMI and PERRL ENT: Present mucous membranes moist Routine Neck Exam Neck: Present supple and trachea midline Routine Respiratory Exam Respiratory: Present chest non-tender, lungs clear, normal breath sounds and no resp distress Routine Cardiovascular Exam Cardiovascular: Present RRR Routine Abdominal Exam Abdominal: Present soft and normoactive bowel sounds Routine Extremities Exam Extremities: Present full ROM Routine Skin Exam Skin: Present intact, dry and warm Routine Neurological Exam Neurological: Present alert, oriented X3 and CN II-XII intact Routine Psychiatric Exam Psychiatric: Present normal affect and normal thought process Objective Labs 09/17/25 04:34 09/17/25 04:34 Labs: Laboratory Results - last 24 hr 09/17/25 04:34 WBC 7.8 RBC 2.94 L Hgb 8.7 L Hct 26.2 L MCV 89 MCH 29.6 MCHC 33.2 RDW Std Deviation 42.8 Plt Count 285 D Neut % (Auto) 58 Lymph % (Auto) 29 [place] % (Auto) 10 Eos % (Auto) 2 Baso % (Auto) 0 Neut # (Auto) 4.5 Lymph # (Auto) 2.3 [place] # (Auto) 0.8 Eos # (Auto) 0.2 Baso # (Auto) 0.0 Immature Gran # (Auto) 0.03 H Absolute Nucleated RBC 0.00 Immature Gran % 0 Nucleated RBC % 0 Sodium 139 Potassium 3.9 Chloride 104 Carbon Dioxide 24.8 Anion Gap 10 BUN 19 Creatinine 0.7 Estim Creat Clear Calc 54.6 L eGFR > 60 BUN/Creatinine Ratio 27 H Glucose 137 H D Calculated Osmolality 281 Calcium 8.8 Corrected Calcium 9.2 Phosphorus 3.1 Magnesium 1.9 Total Bilirubin 0.3 AST 20 ALT 54 H Alkaline Phosphatase 101 Total Protein 5.8 Albumin 3.5 Globulin 2.3 Albumin/Globulin Ratio 1.5 ABG Interpretation ABG results: 09/11/25 09/11/25 09/11/25 11:35 14:50 18:21 ABG pH ABG pCO2 ABG pO2 ABG HCO3 ABG O2 Saturation ABG Base Excess VBG pH 7.39 7.50 7.45 VBG pCO2 31 L 21 L D 26 L VBG pO2 25 55 D 35 D VBG Base Excess -5 L -5 L -5 L 09/11/25 09/11/25 09/12/25 19:56 22:29 04:45 ABG pH 7.52 H ABG pCO2 22 L ABG pO2 60 L ABG HCO3 18 L ABG O2 Saturation 94 ABG Base Excess -4 L VBG pH 7.40 7.41 VBG pCO2 33 L 28 L VBG pO2 27 31 VBG Base Excess -4 L -6 L 09/12/25 09/12/25 09/12/25 11:10 11:27 14:14 ABG pH 7.44 ABG pCO2 25 L ABG pO2 71 L ABG HCO3 17 L ABG O2 Saturation 95 ABG Base Excess -6 L VBG pH 7.32 L 7.42 VBG pCO2 32 L 27 L VBG pO2 57 D 79 H D VBG Base Excess -9 L -6 L 09/12/25 18:58 ABG pH ABG pCO2 ABG pO2 ABG HCO3 ABG O2 Saturation ABG Base Excess VBG pH Cancelled VBG pCO2 Cancelled VBG pO2 Cancelled VBG Base Excess Cancelled Assessment & Plan A&P Narrative Severe LV dysfunction Agree with LifeVest Continue dual antiplatelet agent Time Spent With Patient Time: Total time spent is greater than 50% in coordination of care (as documented) at patient's floor/unit and/or counseling patient:
--- NOTE | 2025-09-17 08:26 | ESPR_ITS ---
<Statement entered by Karan Araujo MD - 09/17/25 18:01> Patient was seen and examined at bedside. I agree on the assessment and plan on this note as documented by resident Dr Heavenly Astorga DO PGY1. 65-year-old female with past medical history as below admitted for STEMI, silent heart attack status post cardiac cath, status post resolution of cardiogenic shock was downgraded to telemetry 2 days ago. Patient's blood pressure continues to remain soft unable to tolerate GDMT, LifeVest was ordered which was delivered today, cardiology is following. Patient on degludec 10 units daily and sliding scale insulin, blood glucose within goal range. Reached out to patient's primary care physician Dr. Manav Dennison, per him patient is following with a specialist outpatient for history of PE and is supposed to be on lifelong Eliquis, was discussed with on site nurse, cardiology is recommending Eliquis and DAPT, recommends discontinuing Plavix after 1 month. We will resume Eliquis today. Anticipate discharge in the next 24 hours. Case discussed with attending Dr. Monica Coello MD PGY-2 Documentation for date of: 09/17/25 Subjective Subjective Interval history: Patient seen and examined by bedside. Complained of diaphragmatic pain that has been improving. BP today has been low, 90/60. Unable to restart GDMT at this time. Right Of Way Clearer, Dr. Lyles, following, appreciate recs: Severe LV dysfunction, agreed with LifeVest before discharge, continue DAPT. Pending LifeVest for dispo. Exam Vital Signs Temp Pulse Resp BP Pulse Ox O2 Del Method O2 Flow Rate 97.0 F 85 20 93/59 L 95 Room Air 2 09/17/25 04:00 09/17/25 04:00 09/17/25 04:00 09/17/25 04:00 09/17/25 04:00 09/17/25 04:00 09/13/25 20:11 FiO2 2 09/12/25 04:16 Narrative Exam Gen: Well-developed and well-nourished. HEENT: NCAT, PERRLA, EOMI, MMM, anicteric conjunctivae. CVS: normal S1 and S2. RRR. No M/R/G. Resp: CTA B/L. No rhonchi, rales, crackles or wheezing. Abd: soft, non-tender, non-distended. BS+ in all 4 quadrants. MSK: Good ROM in BUE & BLE. No edema or rash. Neuro: CN II-XII grossly intact. Strength 5/5 in BUE & BLE. Alert and oriented x3. Psych: appropriate mood and affect. Objective Labs 09/18/25 04:26 09/18/25 04:26 Labs: Laboratory Results - last 24 hr 09/17/25 04:34 WBC 7.8 RBC 2.94 L Hgb 8.7 L Hct 26.2 L MCV 89 MCH 29.6 MCHC 33.2 RDW Std Deviation 42.8 Plt Count 285 D Neut % (Auto) 58 Lymph % (Auto) 29 Gray % (Auto) 10 Eos % (Auto) 2 Baso % (Auto) 0 Neut # (Auto) 4.5 Lymph # (Auto) 2.3 Gray # (Auto) 0.8 Eos # (Auto) 0.2 Baso # (Auto) 0.0 Immature Gran # (Auto) 0.03 H Absolute Nucleated RBC 0.00 Immature Gran % 0 Nucleated RBC % 0 Sodium 139 Potassium 3.9 Chloride 104 Carbon Dioxide 24.8 Anion Gap 10 BUN 19 Creatinine 0.7 Estim Creat Clear Calc 54.6 L eGFR > 60 BUN/Creatinine Ratio 27 H Glucose 137 H D Calculated Osmolality 281 Calcium 8.8 Corrected Calcium 9.2 Phosphorus 3.1 Magnesium 1.9 Total Bilirubin 0.3 AST 20 ALT 54 H Alkaline Phosphatase 101 Total Protein 5.8 Albumin 3.5 Globulin 2.3 Albumin/Globulin Ratio 1.5 ABG Interpretation ABG results: 09/11/25 09/11/25 09/11/25 11:35 14:50 18:21 ABG pH ABG pCO2 ABG pO2 ABG HCO3 ABG O2 Saturation ABG Base Excess VBG pH 7.39 7.50 7.45 VBG pCO2 31 L 21 L D 26 L VBG pO2 25 55 D 35 D VBG Base Excess -5 L -5 L -5 L 09/11/25 09/11/25 09/12/25 19:56 22:29 04:45 ABG pH 7.52 H ABG pCO2 22 L ABG pO2 60 L ABG HCO3 18 L ABG O2 Saturation 94 ABG Base Excess -4 L VBG pH 7.40 7.41 VBG pCO2 33 L 28 L VBG pO2 27 31 VBG Base Excess -4 L -6 L 09/12/25 09/12/25 09/12/25 11:10 11:27 14:14 ABG pH 7.44 ABG pCO2 25 L ABG pO2 71 L ABG HCO3 17 L ABG O2 Saturation 95 ABG Base Excess -6 L VBG pH 7.32 L 7.42 VBG pCO2 32 L 27 L VBG pO2 57 D 79 H D VBG Base Excess -9 L -6 L 09/12/25 18:58 ABG pH ABG pCO2 ABG pO2 ABG HCO3 ABG O2 Saturation ABG Base Excess VBG pH Cancelled VBG pCO2 Cancelled VBG pO2 Cancelled VBG Base Excess Cancelled Quality Measures Quality Measures VTE prophylaxis Advance care planning discussed with:: patient Assessment & Plan Assessment Current Active Medications: Generic Name Dose Route Start Last Admin Trade Name Freq PRN Reason Stop Dose Admin Acetaminophen 650 mg 09/16/25 09:56 Acetaminophen 325 Mg Tablet PO 10/11/25 14:14 Q6H PRN fever >100 or pain 1-3 Hydrocodone Bitart/Acetaminophen 1 tab 09/11/25 14:39 09/16/25 20:05 Hydrocodone/Apap 5/325 Tablet PO 09/20/25 14:19 1 tab Q4HR PRN Administration PAIN SCALE 4-10(Mod-Sev Aspirin 81 mg 09/13/25 09:00 09/16/25 08:16 Aspirin Ec 81 Mg Tabec PO 10/13/25 08:59 81 mg QDAY NATALIE Administration Atorvastatin Calcium 80 mg 09/11/25 21:00 09/16/25 21:13 Atorvastatin Calcium 20 Mg Tablet PO 10/11/25 20:59 80 mg HS NATALIE Administration Calcium Carbonate 600 mg 09/14/25 09:00 09/16/25 08:16 Calcium Carbonate 600 Mg Tablet PO 10/14/25 08:59 600 mg QDAY NATALIE Administration Clopidogrel Bisulfate 75 mg 09/13/25 09:00 09/16/25 08:16 Clopidogrel Bisulfate 75 Mg Tablet PO 10/13/25 08:59 75 mg QDAY NATALIE Administration Dextrose 25 ml 09/15/25 20:43 Dextrose 50%-Water Inj 50 Ml Syringe IV 10/15/25 20:42 Q15MIN PRN BG 50-70 responsive npo pt Furosemide 40 mg 09/13/25 10:15 09/15/25 08:46 Furosemide Inj 10 Mg/Ml 4ml Vial IVP 10/13/25 10:14 Not Given On Hold: 09/15/25 10:14 QDAY NATALIE Heparin Sodium (Porcine) 5,000 unit 09/13/25 14:00 09/17/25 05:51 Heparin Sod Inj 5000 Unit/Ml Vial SC 09/27/25 13:59 5,000 unit Q8HR NATALIE Administration Magnesium Sulfate 4 gm in 50 mls @ 12.5 mls/hr 09/17/25 07:57 Magnesium Sulfate Ivpb IV 09/17/25 11:56 X1 ONE Insulin Degludec 10 unit 09/16/25 09:00 09/16/25 08:15 Insulin Degludec 5 Unit/0.05 Ml (Per 5 Units) SC 10/16/25 08:59 10 unit QDAY NATALIE Administration Insulin Human Lispro 0 unit 09/13/25 07:45 09/16/25 17:47 Insulin Lispro (Admelog) 1 Unit/0.01 Ml Unit SC 10/13/25 07:44 5 unit AC NATALIE Administration Protocol Melatonin 6 mg 09/15/25 21:00 09/16/25 21:13 Melatonin 3 Mg Tablet PO 10/15/25 20:59 6 mg HS NATALIE Administration Metoprolol Succinate 25 mg 09/14/25 11:45 09/14/25 12:52 Metoprolol Succinate Xl 25 Mg Tabcr PO 10/14/25 11:44 25 mg On Hold: 09/15/25 01:30 QDAY NATALIE Administration Ondansetron HCl 4 mg 09/11/25 14:20 Ondansetron Inj 2 Mg/Ml Inj 2 Ml IVP 10/11/25 14:19 Q6H PRN NAUSEA OR VOMITING Protocol Pantoprazole Sodium 40 mg 09/15/25 09:00 09/16/25 08:16 Pantoprazole 40 Mg Tablet PO 10/15/25 08:59 40 mg QDAY NATALIE Administration Plan 65-year-old female with past medical history of diabetes and left lower extremity DVT December 2024 who was previously on Eliquis, but was on hold since the of this month due to schedule right knee arthroplasty on 09/11/2025 was upgraded to the ICU on 09/11/2025 due to STEMI complicated by third-degree AV block along with mild DKA. Patient downgraded to floors for further management on 09/14 after stabilization. #STEMI s/p PCI #Silent TX #Third-degree AV block, resolved #100% occlusion proximal LAD status post PCI Patient denies any chest pain or shortness of breath only complaining of some nausea and epigastric pain. Patient found to have ST elevations on EKG on leads V1 through V along with some T wave inversions in lead I. Bedside ultrasound showed wall motion abnormalities with possible decreased EF, but official echo taken and pending read. Patient was attempted to be transferred for stat heart cath, but no accepting facilities at that time. Repeat EKG showed third-degree AV block on admission Troponin levels were 74.18 and downtrended GEORGI score 9 points 35.9% risk of all-cause mortality at 30 days Underwent successful heart cath with stent placement in LAD and discussed with cardiology if RCA had any disease, but stated no disease in RCA. Patient off heparin drip, transvenous pacing is continued, heart rate stable in the 80s. Patient stable for downgrade to floors for further management. Plan: - DAPT (09/13 - ) - Atorvastatin 80 at bedtime - Cardiology following, appreciate recommendations - Keep potassium greater than 4 and magnesium greater than 2 at all times #HFrEF (20%), new onset #Systolic heart failure #Episodic Hypotension #Cardiogenic shock, resolved Most likely cardiogenic in the setting of STEMI and HFrEF (20%) Patient's heart did show occlusion of the LAD and was successfully stented, but also showed an EF of 20%. Patient was placed on Levophed, but currently off Levophed. 09/14 s/p removed temporary pacemaker. 09/15 Rapid Response called for BP 80/54 and MAP 63. Received LR IVB 0.5L and midodrine 10mg x1. 09/16 BP as low as 90/57 overnight on Aldactone, given Lasix 20mg x1 09/17 Not on GDMT, Plan: -GDMT being held, blood pressure soft - Hold Metoprolol succinate 25 mg daily - Hold Spironolactone 25 mg daily - Hold Lasix 40mg daily - Consider starting VAMSI or ARB after other GDMT if blood pressure allows - Patient will need LifeVest upon discharge - Patient also need outpatient workup for defibrillator as primary prevention given EF less than 30. #Diabetes Mellitus, Type II #Mild DKA, resolved Patient presented to ED with blood glucose greater than 500. Mild DKA, beta- hydroxybutyrate 2.8. Resolved without need for insulin drip, blood glucose currently stable. Nonacidic. hA1C 8.3% as of 09/11/2025. - Degludec 10 units daily and ISS. #Transaminitis, improving likely in the setting of hypoperfusion vs congestion 2/2 HFrEF AST and ALT improving - Follow up on LFT's daily #Normocytic normochromic anemia, stable Patient's hemoglobin 10.5-->9.12 No active signs of bleeding at this time - Follow CBC #Asymptomatic bacteriuria Patient's UA was positive for bacteria however patient does not currently have any urinary symptoms Procal 1.31, likely 2/2 to cardiogenic shock as no symptoms either respiratory or urinary Ceftriaxone x1 given. - No further management at this time. DVT prophylaxis: Heparin GI prophylaxis: Protonix Diet: Carb consistent low Lines: Peripheral IV, [place] cath Code status: Full code Assessment and plan discussed with my attending physician Dr. Gomez and Dr. Araujo (PGY-2). Dr. Astorga (PGY-1) ? residential substance abuse counselor Attending Provider Attestation/Addendum I, Monica Gomez, , attest that I was physically present for the laureano portions of the service and evaluated the patient with the resident and I reviewed and discussed the case with the resident and agree with the resident's findings and plans of care as documented above Patient seen and evaluated this AM. She states she is feeling well and has no shortness of breath today. She denies any chest pain or shortness of breath. Pending LifeVest. BP remains low-normal. She denies any lightheadedness and has been ambulating without issue. Case discussed with cardiology regarding hx of DVT. Patient's PCP stated that the patient has had history of PE and was recommended lifelong anticoagulation. Per cardio, patient will need to be on triple therapy and can stop plavix after 30 days. Risk of bleeding had been discussed with patient. Anticipate DC within next 24h once LifeVest is delivered.
[2025-09-17] MEDS: ASPIRIN EC 81 MG TABEC PO (08:38)
[2025-09-17] MEDS: PANTOPRAZOLE 40 MG TABLET PO (08:38)
[2025-09-17] MEDS: CLOPIDOGREL BISULFATE 75 MG TABLET PO (08:38)
[2025-09-17] MEDS: INSULIN DEGLUDEC 5 UNIT/0.05 ML (PER 5 UNITS) 10 UNIT SC (08:39)
[2025-09-17] MEDS: CALCIUM CARBONATE 600 MG TABLET PO (08:39)
[2025-09-17] MEDS: Magnesium Sulfate 4 GM Ivpb 4 GM/50 ML BAG IV (08:40)
--- NOTE | 2025-09-17 09:12 | PC.SS ---
Addendum entered by Anahi Costello 09/17/25 15:56: SS received call fro Wang Dillon who explained Live Vest has been approved by patient's health insurance and he will attempt to come to bedside to fit life vest today. Addendum entered by Anahi Costello 09/17/25 11:19: SS received call from Wang Dillon from [employer] who confirmed he has received order. SS has also faxed updated Life Vest form. Per Wang, in take will process form and insurance approval is required. Pt is aware. Bedside nurse is aware. Original Note: SS has faxed order for life vest to [employer].
[2025-09-17] MEDS: INSULIN LISPRO (AdmeLOG) 1 UNIT/0.01 ML UNIT SC ×2 (11:57→16:56)
--- NOTE | 2025-09-17 16:32 | PC.PT ---
Patient will be dc from PT services secondary to patient is I with transfers and ambulation with FWW.
[2025-09-17] MEDS: ATORVASTATIN CALCIUM 20 MG TABLET 80 MG PO (20:46)
[2025-09-17] MEDS: APIXABAN 2.5 MG TABLET 5 MG PO (20:46)
[2025-09-17] MEDS: MELATONIN 3 MG TABLET 6 MG PO (20:47)
[2025-09-17] MEDS: HYDROcodone/APAP 5/325 TABLET 1 TAB PO (21:04)
[2025-09-18] VITALS (10 sets, daily range): BP systolic 101–111; BP diastolic 58–74; PULSE 80–100; RESP 17–98; TEMP 36.1–37.2; O2SAT 95–97; BMI 21.1
[2025-09-18 05:50] LABS: Basophils # (Auto) 0.0 Thou/mm3 (0.0-0.2); Basophils % (Auto) 0 % (0-2.5); Eosinophils # (Auto) 0.2 Thou/mm3 (0.0-0.5); Eosinophils % (Auto) 3 % (0-10); Hematocrit 27.6 % (36.0-46.0); Hemoglobin 9.0 g/dL (12.0-16.0); Immature Granulocytes Auto 0.02 Thou/mm3 (0.00-0.00); Lymphocytes # (Auto) 2.4 Thou/mm3 (1.0-4.8); Lymphocytes % (Auto) 31 % (10-50); Mean Corpuscular HGB Conc 32.6 g/dl (31.0-37.0); Mean Corpuscular Hemoglobin 29.3 pg (25.0-35.0); Mean Corpuscular Volume 90 fL (80-100); Monocytes # (Auto) 0.9 Thou/mm3 (0.0-0.8); Monocytes % (Auto) 12 % (0-12); Neutrophils # (Auto) 4.3 Thou/mm3 (1.8-7.7); Neutrophils % (Auto) 55 % (37-80); Nucleated Red Blood Cell # 0.00 Thou/mm3 (0.00-0.00); Nucleated Red Blood Cell % 0 /100 WBC (0); Platelet Count 267 Thou/mm3 (140-440); RDW Standard Deviation 43.4 fL (36.4-46.3); Red Blood Count 3.07 Miln/mm3 (4.00-5.20); White Blood Count 7.9 Thou/mm3 (3.6-11.0)
[2025-09-18 06:18] LABS: Alanine Aminotransferase 46 U/L (10-49); Albumin, Serum 3.7 gm/dL (3.4-4.8); Albumin/Globulin Ratio 1.4 (1.2-2.2); Alkaline Phosphatase 103 U/L (46-116); Anion Gap 11 (7-16); Aspartate Amino Transferase 24 U/L (0-34); BUN/Creatinine Ratio 27 Ratio (12-20); Bilirubin,Total 0.3 mg/dL (0.3-1.2); Blood Urea Nitrogen 19 mg/dL (9-23); Calcium 8.5 mg/dL (8.3-10.6); Calcium (Corrected) 8.7 mg/dL (8.5-10.1); Carbon Dioxide 24.5 mMol/L (20.0-31.0); Chloride 103 mMol/L (98-107); Creatinine (Component) 0.7 mg/dL (0.6-1.3); Estimated Creatinine Clearance 54.6 mL/min (>60); Globulin 2.6 gm/dL (2.3-3.5); Glucose 158 mg/dL (74-106); Magnesium 2.4 mg/dL (1.6-2.6); Osmolality,Calculated 280 (275-295); Phosphorous 2.9 mg/dL (2.4-5.1); Potassium 4.4 mMol/L (3.4-5.1); Sodium 138 mMol/L (136-145); Total Protein 6.3 gm/dL (5.7-8.2); eGFR > 60 See Note
[2025-09-18] MEDS: APIXABAN 2.5 MG TABLET 5 MG PO (08:04)
[2025-09-18] MEDS: CALCIUM CARBONATE 600 MG TABLET PO (08:04)
[2025-09-18] MEDS: CLOPIDOGREL BISULFATE 75 MG TABLET PO (08:04)
[2025-09-18] MEDS: INSULIN DEGLUDEC 5 UNIT/0.05 ML (PER 5 UNITS) 10 UNIT SC (08:04)
[2025-09-18] MEDS: ASPIRIN EC 81 MG TABEC PO (08:04)
[2025-09-18] MEDS: PANTOPRAZOLE 40 MG TABLET PO (08:04)
--- NOTE | 2025-09-18 08:58 | PC.SS ---
Follow up note: SS met with pt at bedside and has received life vest. SS provided pt with [employer] with [employer]'s phone#. Pt is aware to contact them for questions containing the life vest. Pt is possible d/c home today.
[2025-09-18] MEDS: INSULIN LISPRO (AdmeLOG) 1 UNIT/0.01 ML UNIT SC (11:53)
[2025-09-18] MEDS: HYDROcodone/APAP 5/325 TABLET 1 TAB PO (11:55)
--- NOTE | 2025-09-18 12:13 | ESPR_ITS ---
Documentation for date of: 09/18/25 Subjective Subjective Interval history: Continue current medical management Blood pressure is 106/65 Continue DAPT and Eliquis Exam Vital Signs Temp Pulse Resp BP Pulse Ox O2 Del Method O2 Flow Rate 98.9 F 100 20 106/65 95 Room Air 2 09/18/25 11:10 09/18/25 11:10 09/18/25 11:10 09/18/25 11:10 09/18/25 11:10 09/18/25 11:10 09/13/25 20:11 FiO2 2 09/12/25 04:16 Routine HEENT Exam Head: Present normocephalic and atraumatic Eye: Present EOMI and PERRL ENT: Present mucous membranes moist Routine Neck Exam Neck: Present supple and trachea midline Routine Respiratory Exam Respiratory: Present chest non-tender, lungs clear, normal breath sounds and no resp distress Routine Cardiovascular Exam Cardiovascular: Present RRR Routine Abdominal Exam Abdominal: Present soft and normoactive bowel sounds Routine Extremities Exam Extremities: Present full ROM Routine Skin Exam Skin: Present intact, dry and warm Routine Neurological Exam Neurological: Present alert, oriented X3 and CN II-XII intact Routine Psychiatric Exam Psychiatric: Present normal affect and normal thought process Objective Labs 09/18/25 04:26 09/18/25 04:26 Labs: Laboratory Results - last 24 hr 09/18/25 04:26 WBC 7.9 RBC 3.07 L Hgb 9.0 L Hct 27.6 L MCV 90 MCH 29.3 MCHC 32.6 RDW Std Deviation 43.4 Plt Count 267 Neut % (Auto) 55 Lymph % (Auto) 31 [place] % (Auto) 12 Eos % (Auto) 3 Baso % (Auto) 0 Neut # (Auto) 4.3 Lymph # (Auto) 2.4 [place] # (Auto) 0.9 H Eos # (Auto) 0.2 Baso # (Auto) 0.0 Immature Gran # (Auto) 0.02 H Absolute Nucleated RBC 0.00 Immature Gran % 0 Nucleated RBC % 0 Sodium 138 Potassium 4.4 D Chloride 103 Carbon Dioxide 24.5 Anion Gap 11 BUN 19 Creatinine 0.7 Estim Creat Clear Calc 54.6 L eGFR > 60 BUN/Creatinine Ratio 27 H Glucose 158 H Calculated Osmolality 280 Calcium 8.5 Corrected Calcium 8.7 Phosphorus 2.9 Magnesium 2.4 Total Bilirubin 0.3 AST 24 ALT 46 Alkaline Phosphatase 103 Total Protein 6.3 Albumin 3.7 Globulin 2.6 Albumin/Globulin Ratio 1.4 ABG Interpretation ABG results: 09/11/25 09/11/25 09/11/25 11:35 14:50 18:21 ABG pH ABG pCO2 ABG pO2 ABG HCO3 ABG O2 Saturation ABG Base Excess VBG pH 7.39 7.50 7.45 VBG pCO2 31 L 21 L D 26 L VBG pO2 25 55 D 35 D VBG Base Excess -5 L -5 L -5 L 09/11/25 09/11/25 09/12/25 19:56 22:29 04:45 ABG pH 7.52 H ABG pCO2 22 L ABG pO2 60 L ABG HCO3 18 L ABG O2 Saturation 94 ABG Base Excess -4 L VBG pH 7.40 7.41 VBG pCO2 33 L 28 L VBG pO2 27 31 VBG Base Excess -4 L -6 L 09/12/25 09/12/25 09/12/25 11:10 11:27 14:14 ABG pH 7.44 ABG pCO2 25 L ABG pO2 71 L ABG HCO3 17 L ABG O2 Saturation 95 ABG Base Excess -6 L VBG pH 7.32 L 7.42 VBG pCO2 32 L 27 L VBG pO2 57 D 79 H D VBG Base Excess -9 L -6 L 09/12/25 18:58 ABG pH ABG pCO2 ABG pO2 ABG HCO3 ABG O2 Saturation ABG Base Excess VBG pH Cancelled VBG pCO2 Cancelled VBG pO2 Cancelled VBG Base Excess Cancelled Assessment & Plan A&P Narrative Continue DAPT and Eliquis severe LV dysfunction Agree with LifeVest Continue dual antiplatelet agent Time Spent With Patient Time: Total time spent is greater than 50% in coordination of care (as documented) at patient's floor/unit and/or counseling patient:
--- NOTE | 2025-09-18 15:33 | ESDS_ITS ---
<Statement entered by Karan Araujo MD - 09/18/25 21:05> Patient was seen and examined by me personally. I have reviewed the below documentation by the team resident and agree with its findings. Discharge plan was discussed with the attending, Dr. Monica Coello MD Internal Medicine, PGY-2 Planned Discharge Date 09/18/25 DS: Providers Provider Date of admission: 09/11/25 14:15 Primary care physician: Physician No Primary/Family Admitting Provider: Venkatesh Robles MD Attending Provider on Admission: Monica Gomez DO Consults: 09/11/25 15:34 Consult to Cardiology Urgent Comment: Consulting Provider: Samantha Lyles 09/11/25 16:17 Consult to Journeyman Mechanic Stat Comment: Bradycardia, STEMI Consulting Provider: Ophelia Fisher 09/11/25 16:27 Referral - Front End Architect Stat Service Needed for Transfer: Cardiology Addl Comments:: STEMI 09/15/25 10:21 Referral Physical Therapy Routine Comment: Physician Instructions: 09/17/25 10:17 Referral Registered Dietitian Routine Comment: Cardiac diet education Attending Provider on DC: Sheri Oconnell DO Discharging Provider: Sheri Oconnell DO DS: Diagnosis Problem List Completed Was Problem List Reviewed/Reconciled?: Yes Hospital Course Hospital Course Hospital course: Continue current medical management Blood pressure is 106/65 Continue DAPT and Eliquis Status at Discharge Cognitive/behavioral status at discharge: 65-year-old female with past medical history of type 2 diabetes mellitus, insulin-dependent, left lower extremity DVT in December 2024 on Eliquis, presented to ED on 09/11/2025 after medical response was called prior to knee arthroplasty operation for blood glucose of 510, arthroplasty was canceled. In the ER patient was noted to have high anion gap metabolic acidosis, with bicarb 14.7, glucose 492 and beta hydroxybutyrate elevated at 2.8 with lactic acidosis of 4.4. Pt was admitted for moderate DKA and lactic acidosis. Patient reported no chest pain, however,? did complain of epigastric discomfort, nausea and vomiting the day before. EKG obtained showed ST elevation in lead V1?V4 with troponin elevation at 74.180. Bedside echocardiogram showed septal hypokinesis with LV hypokinesis. After 3 L LR bolus, bicarb improved to 18.3 with anion gap closed x 1. Cardiology was consulted, as cardiac?cath?services were unavailable at this facility, emergent transfer request to higher level of care for urgent cardiac?cath?for STEMI was made . Case was discussed with transfer nurse, however, patient was declined at [facility] for emergent transfer.?? ? Discussed with store sales consultant Dr. Dunlap and Cardiac Collar Baster Jumpbastingadvertising director Dr Apple who reviewed the case, per both cardiologists patient likely had an event 12 to 24 hours before. Further review of EKG with deep Q waves and the high level of troponins were likely reflected by patient's symptoms of nausea and vomiting the day prior to admission. Per Dr. Dunlap patient was stable for cardiac?cath?in a.m., however he recommended patient to be monitored in intensive care unit as well as low-dose dopamine drip as needed for bradycardia. Heparin drip continued overnight. Patient underwent angioplasty and stent placement to the LAD in the morning. She was also placed on intra-aortic balloon pump and norepinephrine as the patient was noted to be in cardiogenic shock. Her ejection fraction was 20% on angiography. On auscultation patient was found to have wheezing bilaterally more on the left side, and she was also tachypneic. Chest x-ray before angiograph showed reticular infiltrate most likely pulmonary edema.? lactic acid increased from 3.0-5.0 after the cath. Her troponin initially down trended from 74-47.874 however it up trended after the procedure to 118.724. Creatinine kinase 1001, beta-hydroxybutyrate repeat was 1.0. Repeat EKG showed paced rhythm with heart rate of 100 , ST segment elevation still present with no arrhythmia.?? ? Patient was treated with Lasix 40mg and Chest x-ray the following morning showed improvement in pulmonary edema. No bleeding from right groin area were patient had her heart?cath?done.? Patient was taken off heparin drip and continued with DAPT. Cardiology also decreased patient's anterior pacing to 70 and took out the intra-aortic balloon. Patient was started on Rocephin for UTI and possible pneumonia. Blood pressure remained stable when patient was taken off of pressors. Cardiology removed transvenous pacing, HR stable at 80..??Patient initiated on GDMT with metoprolol succinate 25 mg, spironolactone 25 mg, and continued with Lasix 40 mg daily.? Patient was downgraded back to the medical floors. Attempts were made to start patient on diuretics and goal-directed medical therapy due to systolic heart failure. However, due to hypotension, these medications were held. Patient is to follow up outpatient with cardiology to start goal directed medical therapy. Patient was counselled on low sodium diet and limiting fluid intake to under 2L daily. Cardiology recommended LifeVest upon discharge, which was delivered on 09/17. Patient would need to be discharged on triple therapy with Eliquis, Plavix, and aspirin, the former for previous history of DVT & PE as followed by an outpatient specialist and the latter two for the newly placed stent. Discussed with the patient the importance of taking these medications regularly after a discussion of the risks of bleeding and benefits involved. According to cardiology, Patient may stop Plavix after 30 days. At the time of discharge, patient is medically stable and deemed safe to return to his/her previous state of living. Admission Diagnoses: #Cardiogenic shock, resolved #STEMI s/p PCI with 100% occlusion proximal LAD #Third-degree AV block, resolved #HFrEF (20%), new onset #Diabetes Mellitus, Type II #Mild DKA, resolved #Transaminitis, improving #Normocytic normochromic anemia, stable #Asymptomatic bacteriuria Discharge instructions: - You were admitted to the hospital for High blood sugars, you had a silent MN and you underwent cardiac cath had a stent placed in LAD vessel, please continue eliquis, aspirin and plavix for days. After 30 days please stop plavix and take eliquis and aspirin only. Take atorvastatin daily for cholestrol management. - Wear the life vest at all times, follow up with the store sales consultant in 1 week, start GDMT to improve heart function as your blood pressure tolerates. - For diabetes take insulin degludec once a day 10 units and Uri-met, follow up with your PCP for better control - All other medications as below. Anemia workup outpatient. - Follow up with PCP in 1 week. - Return to ED if your symptoms worsen. This case was discussed with my attending physician, Dr. Gomez, and senior resident, Dr Araujo. Even though this this note was carefully revised there may still be minor errors in turpentine farmer due to voice recognition software. Sheri Oconnell, DO PGY I Time Spent with Patient Time attestation: Total time spent providing and/or coordinating discharge services: More than 50% of the patient's total hospital stay. Time spent: Greater than 30 minutes Home Health Home Health Referral Orders: 09/18/25 14:30 Home Health Referral Routine Reason For Exam: stemi Home-Bound The patient must either because of illness or injury, need the aid of supportive devices such as crutches, canes, wheelchairs, and walkers; the use of special transportation; or the assistance of another person in order to leave their place of residence; OR have a condition such that leaving his or her home is medically contraindicated. In addition, the patient also meets the following criteria: patient is normally unable to leave the home and leaving home requires considerable taxing effort. Addendum to Home Health Certification Practitioner's Certification: I certify that the patient has been under my care in the hospital and the care of attending physician (see below). We had a [id number] encounter on (see date below). My clinical findings indicate that the patient is home bound per the above criteria and the Home Health Services noted in these orders are medically necessary. The primary reason for the fxsy-hw-taro encounter is related to the fact that the patient requires home health services. Date Certifying [id number] Physician Encounter: 09/11/25 Physician's Name who will Assume Oversight for HH Services: Manav Dennison BUSINESS DEVELOPMENT COORDINATOR - Community Resources: No PT to Evaluate: Yes PT to evaluate and provide a treatmnet plan to increase patient's mobility and strength. Wound Care: No IV Therapy: No RN Safety Evaluation: Yes RN to evaluate and create a plan of care that will produce positive outcomes. Palliative Treatment: No Palliative treatment and evaluate the need for hospice. Home Health Aide - Personal Care: Yes Home Health Aide to assist with any ADL's. Exam Vital Signs Temp Pulse Resp BP Pulse Ox O2 Del Method O2 Flow Rate 98.9 F 100 20 106/65 95 Room Air 2 09/18/25 11:10 09/18/25 11:10 09/18/25 11:10 09/18/25 11:10 09/18/25 11:10 09/18/25 11:10 09/13/25 20:11 FiO2 2 09/12/25 04:16 Narrative Exam Gen: Well-developed and well-nourished. HEENT: NCAT, PERRLA, EOMI, MMM, anicteric conjunctivae. CVS: normal S1 and S2. RRR. No M/R/G. Resp: CTA B/L. No rhonchi, rales, crackles or wheezing. Abd: soft, non-tender, non-distended. BS+ in all 4 quadrants. MSK: Good ROM in BUE & BLE. No edema or rash. Neuro: CN II-XII grossly intact. Strength 5/5 in BUE & BLE. Alert and oriented x3. Psych: appropriate mood and affect. Discharge Plan Plan Patient Disposition: Home w/HOME HEALTH Patient condition on transfer: Stable Care Plan Goals: - You were admitted to the hospital for High blood sugars, you had a silent MN and you underwent cardiac cath had a stent placed in LAD vessel, please continue eliquis, aspirin and plavix for days. After 30 days please stop plavix and take eliquis and aspirin only. Take atorvastatin daily for cholestrol management. - Wear the life vest at all times, follow up with the store sales consultant in 1 week, start GDMT to improve heart function as your blood pressure tolerates. - For diabetes take insulin degludec once a day 10 units and Uri-met, follow up with your PCP for better control - All other medications as below. Anemia workup outpatient. - Follow up with PCP in 1 week. - Return to ED if yoyur symptoms worsen. Prescriptions/Referrals Prescriptions/Med Rec: New aspirin 81 mg Tablet,Delayed Release (Dr/Ec) 81 mg PO QDAY 30 Days Qty: 30 0RF atorvastatin [Lipitor] 80 mg tablet 80 mg PO HS 30 Days Qty: 30 0RF clopidogrel 75 mg Tablet 75 mg PO QDAY 30 Days Qty: 30 0RF calcium carbonate 600 mg calcium (1,500 mg) Tablet 600 mg PO QDAY 30 Days Qty: 30 0RF insulin degludec 100 unit/mL (3 mL) insulin pen 10 unit subcut QDAY Qty: 15 0RF (DME) pen needle, diabetic [CareFine Pen Needle] 31 gauge x 1/4 needle See Rx Instructions .Route Qty: 100 0RF Rx Instructions: As directed pantoprazole [Protonix] 40 mg tablet,delayed release (DR/EC) 40 mg PO QDAY Qty: 30 0RF Continued hydrocodone-acetaminophen 5-325 mg tablet 1 tab PO Q8H PRN (Reason: pain) hydroxyzine HCl 25 mg tablet 25 mg PO TID PRN (Reason: anxiety) Janumet 50-500 mg tablet 1 tab PO BID Eliquis 5 mg tablet 5 mg PO BID 30 Days Qty: 60 0RF Discontinued Jardiance 25 mg tablet 25 mg PO QAM insulin glargine U-300 conc [Toujeo Max U-300 SoloStar] 300 unit/mL (3 mL) insulin pen 20 unit subcut HS Patient Comments: pt stated glucose was constantly low so she stopped insulin 10 days ago insulin lispro [Humalog KwikPen Insulin] 100 unit/mL insulin pen 10 unit subcut TID Referrals: Manav Dennison MD [Referring Provider] Samantha Lyles MD [Physician, Cardiology] Patient/Caregiver Discharge Instructions Discharge Activity: activity as tolerated Education Materials: CAD, Heart Failure and Physical Activity, Heart Failure Print Language: New Zealander Stand Alone Forms: Brittany Award Info., Patient Portal Info Letter Discharge Order Discharge Orders: Discharge (Routine); Ordered 09/18/25 Ordered By: Karan Araujo Quality Discharge Quality Measures VTE prophylaxis
--- NOTE | 2025-09-23 17:34 | PC.CM ---
Patient was referred to [facility] health at discharge. Padmini let us know that they were not able to open patient because she was at [facility].
== END 2025-09-18 16:37 | disposition home health service (06) | DRG 270 ==
LOC: SERX 13:40 → SERHOLD 15:06 → S2SX 09-12 06:28 → S2NX 09-14 20:06 → S3SX 09-17 17:39
PROVIDERS: Internal Medicine; Student in an Organized Health Care Education/Training Program; Admitting Provider Student in an Organized Health Care Education/Training Program; Visit Provider Internal Medicine
PROC: 4A023N7 Measurement of Cardiac Sampling and Pressure, Left Heart, Percutaneous Approach (ICD-10-PCS; principal; 2025-09-12 06:30)
DX: I21.3 ST elevation (STEMI) myocardial infarction of unspecified site (principal); E11.10 Type 2 diabetes mellitus with ketoacidosis without coma; J18.9 Pneumonia, unspecified organism; J96.01 Acute respiratory failure with hypoxia; R57.0 Cardiogenic shock; E87.4 Mixed disorder of acid-base balance; I50.22 Chronic systolic (congestive) heart failure; I44.2 Atrioventricular block, complete; E11.65 Type 2 diabetes mellitus with hyperglycemia; E83.39 Other disorders of phosphorus metabolism; I11.0 Hypertensive heart disease with heart failure; E83.51 Hypocalcemia; R74.01 Elevation of levels of liver transaminase levels; F41.9 Anxiety disorder, unspecified; E87.6 Hypokalemia; D64.9 Anemia, unspecified; M17.0 Bilateral primary osteoarthritis of knee; Z96.651 Presence of right artificial knee joint; Z86.718 Personal history of other venous thrombosis and embolism; Z79.4 Long term (current) use of insulin; Z79.01 Long term (current) use of anticoagulants; Z74.01 Bed confinement status; Z79.84 Long term (current) use of oral hypoglycemic drugs; Z79.899 Other long term (current) drug therapy; I25.10 Atherosclerotic heart disease of native coronary artery without angina pectoris
CPT/HCPCS: 36415; 36600; 71045; 80053; 80069; 81001; 82010; 82550; 82803; 83036; 83605; 83735; 84100; 84145; 84484; 85025; 85610; 85730; 87040; 87081; 93005; 93306; 96361; 96365; 96366; 97162; 99152; 99153; 99283; A4649; C1725; C1730; C1757; C1769; C1874; C1887; C1894; J0153; J0168; J0282; J0283; J0461; J0583; J0696; J1265; J1327; J1643; J1644; J1815; J1938; J2250; J2270; J2312; J2371; J2470; J3010; J3475; J3480; J3490; J7030; J7050; J7120; J7999; Q9967; A9270; J2305